=== PATIENT | male | born 1940 | race Caucasian/White ===

== ENCOUNTER 2016-11-29 01:09 | Inpatient (IN) | payer OTHER ==
[~2016-11-29] VITALS: Ht 182.9 cm; Wt 90.7 kg
--- NOTE | 2016-11-29 01:13 | NUR ---
PER LONG HX OF RT KNEE PROBLEMS BUT USES CANE AND HIKES ETC, ON 11/19 PT FELL AND HAS HAD TO USE A WALKER SINCE, PT TONIGHT PAIN WAS UNBEARABLE. UNABLE TO TOLERATE.
--- NOTE | 2016-11-29 01:16 | ED MVC/FALL/TRAUMA COMPLAINT ---
History of Present Illness General Chief Complaint: Lower Extremity Injury Stated Complaint: FALL R HIP PAIN Source: patient, family, EMS Exam Limitations: no limitations Vital Signs & Intake/Output Vital Signs & Intake/Output Vital Signs Date Time Temp Pulse Resp B/P Pulse O2 O2 Flow FiO2 Ox Delivery Rate 11/29 0826 73 20 133/57 97 Room Air 11/29 0544 98.3 69 22 142/71 95 Room Air 11/29 0119 97.3 77 22 159/74 95 Room Air Allergies Coded Allergies: fenofibrate (From TRICOR) (UNKNOWN 11/29/16) levothyroxine sodium (From SYNTHROID) (HIVES 11/29/16) Reconcile Medications Amlodipine Besylate 5 MG TABLET 1 TAB PO DAILY HTN (Reported) Lisinopril 2.5 MG TABLET 1 TAB PO DAILY HTN (Reported) Thyroid,Pork ([place] Thyroid) 60 MG TABLET 1 TAB PO DAILY THYROID (Reported) Triage Note: PER LONG HX OF RT KNEE PROBLEMS BUT USES CANE AND HIKES ETC, ON 11/19 PT FELL AND HAS HAD TO USE A WALKER SINCE, PT TONIGHT PAIN WAS UNBEARABLE. UNABLE TO TOLERATE. Triage Nurses Notes Reviewed? yes Onset: Abrupt Duration: week(s):, waxing and waning Timing: recent history Severity: mild, moderate Injuries/Fall Location: lower extremity Method of Injury: fall Loss of Consciousness: no loss of consciousness Modifying Factors: Worsens With: movement. Associated Symptoms: RIGHT HIP PAIN SINCE november 19. hE NOTES ALSO CHRONIC RIGHT KNEE PAIN FOR MANY DECADES. HPI: 76-year-old gentleman in prior good health, history of hypertension, hypothyroidism, chronic right knee pain, presents with right hip pain after a fall on November 19. He notes that he fell, landed on his right hip. Since then he has had increasing pain where he has needed to walk with a walker. He notes that tonight the pain became, "unbearable. I had to do something." He notes no other injury and is otherwise well. He did not hit his head. He had no chest pain palpitations shortness of breath. (MICHELLE HERNÁNDEZ,BALDEMAR Abreu) Past History Travel History Traveled to [place] past 21 day No Medical History Any Pertinent Medical History? see below for history Cardiovascular: hypertension Endocrine: hypothyroidism Surgical History Surgical History: none Family History Hx Contributory? No (MICHELLE HERNÁNDEZ,BALDEMAR Abreu) Review of Systems Review of Systems Constitutional: Reports: no symptoms. Eyes: Reports: no symptoms. Ears, Nose, Throat, Mouth: Reports: no symptoms. Respiratory: Reports: no symptoms. Cardiovascular: Reports: no symptoms. Gastrointestinal/Abdominal: Reports: no symptoms. Genitourinary: Reports: no symptoms. Musculoskeletal: Reports: no symptoms. Skin: Reports: no symptoms. Neurological/Psychological: Reports: no symptoms. All Other Systems: Reviewed and Negative (MICHELLE HERNÁNDEZ,BALDEMAR Abreu) Physical Exam Physical Exam General Appearance: well developed/nourished, mild distress Head: atraumatic, normal appearance Eyes: Bilateral: normal appearance. Ears, Nose, Throat, Mouth: hearing grossly normal Neck: normal inspection, supple, full range of motion Respiratory: normal breath sounds, chest non-tender, no respiratory distress, quiet respiration, lungs clear Cardiovascular: regular rate/rhythm Gastrointestinal: normal bowel sounds, soft, non-tender Back: normal inspection Extremities: right leg appears shortened and externally rotated. Diffuse pain around right knee to palpation with range of motion movement. Pain elicited the right hip with palpation and passive range of motion. 2+ distal pulses symmetrical bilaterally. Neurologic/Psych: no motor/sensory deficits, awake, alert, oriented x 3 Skin: intact, normal color, warm/dry Core Measures ACS in differential dx? No Severe Sepsis Present: No Septic Shock Present: No (MICHELLE HERNÁNDEZ,BALDEMAR Abreu) Progress Differential Diagnosis: ext injury Plan of Care: Orders Procedure Date/time Status Nothing by Mouth 11/29 L Active Nothing by Mouth 11/29 B Complete Pathway - chart 11/29 0955 Active House Staff 11/29 0955 Active Patient Data 11/29 0955 Active Code Status 11/29 0955 Active Admit to inpatient 11/29 0913 Active Patient Data 11/29 0752 Active Intake & Output 11/29 0728 Active Saline Lock 11/29 0402 Active ED Holding Orders 11/29 0402 Active Vital Signs 11/29 0402 Active Code Status 11/29 0402 Complete Admit to inpatient 11/29 0401 Active Admit to inpatient 11/29 0305 Active Jones, Insertion/Removal/Asses 11/29 0254 Active CULTURE,URINE 11/29 0254 Active URINALYSIS 11/29 0254 Complete TROPONIN LEVEL 11/29 0254 Complete COMPREHENSIVE METABOLIC PANEL 02/25 0254 Complete CBC WITHOUT DIFFERENTIAL 11/29 253 Complete EKG 11/29 253 Active TYPE & SCREEN (NOT X-MATCH) 11/29 253 Complete VTE Mechanical Prophylaxis 11/29 UNK Active Laboratory Tests 11/29/1645: Urine Color BLDY H, Urine Clarity TURBD H, Urine pH 8.0, Ur Specific [place] 1.025, Urine Protein >=300 H, Urine Ketones NEG, Urine Nitrite POS H, Urine Bilirubin NEG@ICTO, Urine Urobilinogen 0.2, Ur Leukocyte Esterase TRACE H, Ur Microscopic SEDIMENT EXAMINED, Urine RBC PACKD H, Urine Hemoglobin LARGE H, Urine Glucose 100 H 11/29/16 0358: Anion Gap 9, Estimated GFR > 60, BUN/Creatinine Ratio 27.0 H, Glucose 113 H, Calcium 9.3, Total Bilirubin 0.7, AST 31, ALT 30, Alkaline Phosphatase 86, Troponin I < 0.01, Total Protein 6.6, Albumin 3.7, Globulin 2.9, Albumin/ Globulin Ratio 1.3, CBC w Diff NO MAN DIFF REQ, RBC 3.47 L, MCV 97.0 H, MCH 32.8 H, RDW 15.2 H, MPV 7.7, Gran % 82.7 H, Lymphocytes % 10.1 L, Monocytes % 6.7, Eosinophils % 0.1, Basophils % 0.4, Absolute Granulocytes 6.0, Absolute Lymphocytes 0.7 L, Absolute Monocytes 0.5, Absolute Eosinophils 0, Absolute Basophils 0, PUBS MCHC 33.9 Microbiology 11/29 544 URINE ROUT: Urine Culture - RECD Diagnostic Imaging: Viewed by Me: Radiology Read. Discussed w/RAD: Radiology Read. Radiology Impression: ap pelvis/right hip... right femoral neck fx... ( discrepancy in dictation... pt has a RIGHT femoral neck fracture) Hand-Off Endorsed To: INDERJIT HERNÁNDEZ,DEMAR Sommers Endorsed Time: 0700 Pending: other (PA evaluation) Comments: PATIENT: JESSICA AMAYA PRESENT AGE: 76 PATIENT ACCOUNT NO: [id number] : 41 LOCATION: [facility] ORDERING PHYSICIAN: BALDEMAR MARTINEZ MD SERVICE DATE: 11/29/16 EXAM TYPE: RAD - XRY-HIP 4 VIEWS UNI, RIGHT EXAMINATION: PELVIS, RIGHT HIP. CLINICAL INFORMATION: Fall. Pain. COMPARISON: None. TECHNIQUE: AP view of pelvis. Cone-down AP oblique view of right hip. FINDINGS: Fracture through the right femoral neck. Distal fracture fragment displaced superiorly with angulation of the fracture. Femoral head remains seated in the acetabulum. Left proximal femur intact. No fracture pelvis. Degenerative disc disease of lower lumbar spine. IMPRESSION: Fracture of left femoral neck. DICTATED BY: CHARLES CHAUDHARY MD DATE/TIME DICTATED:11/29/16339 ENGLISH AS A SECOND LANGUAGE INSTRUCTOR:NETTIE DATE/TIME TRANSCRIBED:11/29/16339 CONFIDENTIAL, DO NOT COPY WITHOUT APPROPRIATE AUTHORIZATION. <Electronically signed in Other Vendor System> SIGNED BY: CHARLES CHAUDHARY MD 11/29/16344 (MICHELLE HERNÁNDEZ,BALDEMAR Abreu) Comments: Patient has been seen and evaluated by the surgical PA. They feel that given the patient's increasing weakness prior to his fall and his past medical history that he would be better served on the medical service with them as consultants and once he is medically cleared then proceed for surgery. Discussed with Jeanine Nj MD. She feels that the patient is stable for the surgical service with medical consultation. This was relayed to the surgical PA who is going to talk to Dr. Mariscal and Dr. Mariscal and Dr. Rdz will communicate and then one of them will call me back to determine who service he will be on. Dr. Graham called to get an update on the patient. The case was discussed with him. He feels that the patient should be admitted to the medical service with orthopedic consultation. He will contact Dr. Art. (INDERJIT HERNÁNDEZ,DEMAR Sommers) Departure Departure Disposition: STILL A PATIENT Condition: Stable Clinical Impression Primary Impression: Fracture of femoral neck, right Secondary Impressions: Dehydration, Urinary outflow obstruction Referrals: MUSHTAQ HERNÁNDEZ,BAIRON (PCP/Family) Departure Forms: Customer Survey General Discharge Information Comments 11/29/16, 5:40AM.... Difficulty with jones placement.... unsuccessful with jones from kit, coude x 2, size 22, 24. Jones placed with 28, balloon documented in bladder by bedside u/s.... bloody drainage... slow to drain... Discussed with dr. armenta (5:40)... will have surgical PA evaluate patient. 2.25.17, 5:47am.... discussed with surgical PA... team will evaluate the patient. Admission Note Documentation of Exam: Documentation of any treatments & extenuating circumstances including Concerns Regarding Discharge (functional status, medication knowledge or non-compliance, living conditions, etc.) that warrant an admission rather than observation: pt with right femoral neck fracture, will need surgical repair. PA to evaluate for dispo. pt signed out to dr. zaman. 11.29.16, 7am. (MICHELLE HERNÁNDEZ,BALDEMAR Abreu) Admission Note Spoke With: CONCHA HERNÁNDEZ,JEANINE Roth Documentation of Exam: Documentation of any treatments & extenuating circumstances including Concerns Regarding Discharge (functional status, medication knowledge or non-compliance, living conditions, etc.) that warrant an admission rather than observation: [ Patient to be admitted to the medical service with orthopedic consultation. Patient has been having increasing weakness to the point that he fell 10 days ago and fractured his right hip. Patient will need medical evaluation and medical clearance prior to surgery.] (INDERJIT HERNÁNDEZ,DEMAR Sommers)
--- NOTE | 2016-11-29 01:20 | NUR ---
ALERT DISHEVELED, GLASSES IN PLACE, LENSES DIRTY, CLOTHES SOILED AND GREYED, PANTS AND UNDERWEAR REMOVED, PANTS STAINED WITH URINE. LLE KNEE TO ANKLE APPEARS CELLULITIC, AND SWOLLEN, RT KNEE WITH ELASTIC BRACE ON OLD, TATTERED, RLE SWOLLEN AND REDDENED. BILAT PEDAL EDEMA 2+ PER ? NORMAL UNABLE TO USE URINAL UNABLE TO TURN AT THIS TIME AWAITS EVAL.
--- NOTE | 2016-11-29 02:28 | NUR ---
PT ATTEMPTS TO VOID MULTPILE TIMES UNABLE TO PT REQUESTS TO BE VERTICAL, CONT TO AWAIT XR. PLACED IN REVERSE TRENDELENBERG AND SIDE BUT UNABLE TO VOID, REPORTS NO RELIEF FROM TORADOL
--- NOTE | 2016-11-29 02:39 | NUR ---
PT TO RADIOLOGY VIA STRETCHER
--- NOTE | 2016-11-29 03:14 | NUR ---
PT BACK FROM RAD.
--- NOTE | 2016-11-29 03:21 | NUR ---
awaiting md to discuss results so labs, jones iv ekg can be performed.
--- NOTE | 2016-11-29 03:45 | RADIOLOGY REPORT ---
EXAMINATION: PELVIS, RIGHT HIP. CLINICAL INFORMATION: Fall. Pain. COMPARISON: None. TECHNIQUE: AP view of pelvis. Cone-down AP oblique view of right hip. FINDINGS: Fracture through the right femoral neck. Distal fracture fragment displaced superiorly with angulation of the fracture. Femoral head remains seated in the acetabulum. Left proximal femur intact. No fracture pelvis. Degenerative disc disease of lower lumbar spine. IMPRESSION: Fracture of left femoral neck.
--- NOTE | 2016-11-29 03:46 | RADIOLOGY REPORT ---
EXAMINATION: XR KNEE, RIGHT CLINICAL INFORMATION: Pain. Fall. COMPARISON: None TECHNIQUE: Three views of the right knee. FINDINGS: No fracture. No dislocation. No acute abnormality. There is marked degenerative joint disease with [id number] contact between femur and tibia. Remodeling of the articular surface of the tibia at the medial femoral tibial joint. Marginal spur of both bones at the medial compartment. Small spurs of the patella at the patellofemoral joint. There is a small joint effusion. IMPRESSION: 1. No acute abnormality. 2. Marked degenerative joint disease. 3. Small joint effusion.
--- NOTE | 2016-11-29 03:46 | NUR ---
PT REQUESTING MALE FOR CATH INSERTION, DR MARTINEZ AGREEABLE. PT CONT TO ASK QUESTIONA AND THEN APOLOGIZES FOR ASKING THEM, RLE KNEE BRACE REMOVED, SWELLING BELOW BRACE. PT CLOTHING {SHIRT AND ADALBERTO } REMOVED UNDER SOME MINIMAL DURESS. PT AWARE OF NEED TO STAY.
--- NOTE | 2016-11-29 03:47 | RADIOLOGY REPORT ---
EXAMINATION: XR PORTABLE CHEST CLINICAL INFORMATION: Preop. COMPARISON: None TECHNIQUE: Portable portable AP view of the chest was obtained. 2:59 AM FINDINGS: Lungs are clear. No pulmonary vascular congestion. No infiltrate or pleural effusion. The heart size is normal. The cardiac and mediastinal contours are normal. There are calcifications of the thoracic aorta. There are multilevel degenerative changes of dorsal spine. IMPRESSION: Unremarkable examination.
[2016-11-29] MEDS ORDERED: ARMOUR THYROID60 M1 PO (03:49)
[2016-11-29] MEDS ORDERED: AMLODIPINE BESYL5 M1 PO (03:50)
[2016-11-29] MEDS ORDERED: LISINOPRIL2.5 M1 PO (03:50)
[2016-11-29 04:10] LABS: ABSOLUTE BASOPHIL COUNT 0 /CUMM (0.0-0.2); ABSOLUTE EOSINOPHIL COUNT 0 /CUMM (0.0-0.7); ABSOLUTE LYMPH COUNT 0.7 /CUMM (1.2-3.4); ABSOLUTE MONOCYTE COUNT 0.5 /CUMM (0.10-0.60); BASOPHIL % 0.4 % (0.0-2.0); EOSINOPHIL % 0.1 % (0-5); GRANULOCYTE % 82.7 % (42.2-75.2); HEMATOCRIT 33.6 % (42-52); MEAN CORPUSCULAR HGB 32.8 PG (27.0-31.0); MEAN CORPUSCULAR HGB CONC 33.9 G/DL (33.0-37.0); MEAN PLATELET VOLUME 7.7 FL (7.4-10.4); PLATELET COUNT 188 /CUMM (130-400); RBC DISTRIBUTION WIDTH 15.2 % (11.5-14.5); RED BLOOD CELL CT 3.47 /CUMM (4.70-6.10); WHITE BLOOD CELL COUNT 7.2 /CUMM (4.8-10.8)
--- NOTE | 2016-11-29 04:15 | NUR ---
BLOODWORK DRAWN AND SENT OFF TO THE LAB; EKG DONE AND SHOWN TO DR. MARTINEZ.
--- NOTE | 2016-11-29 05:35 | NUR ---
PER 2-3 DAYS AGO URINE WAS DARK IN COLOR BUT DENIES BLOOD, ALSO REPORTED GRITTY TEXTURE BUT WAS OK LAST PM PRIOR TO ARRIVAL, SAVAGE PLACED BY MD WITH GREAT DIFFICULTY. A #18 REGULAR, #14,#16, #20 COUDE ATTEMPTED QWITHOUT SUCCESS, BEDSIDE US PERFORMED, #28 COUDE SAVAGE PLACED, IRRIGATED BY MD. BLOODY RETURNS. WITH SOME CLOTS, IRRIGATED WITH 100 CCS SALINE LIGHT RED RETURNS, WILL MONITOR OUTPT. PT REPORTS RELIEF OF PAIN WITH 2ND DOSE OF 2 MG MORPHINE.
--- NOTE | 2016-11-29 05:48 | NUR ---
SURGICAL PA CALLED BACK AT [phone]
--- NOTE | 2016-11-29 05:57 | NUR ---
AWAITS BED, EVAL BY HOUSESTAFF, ETC. WENT HOME.
--- NOTE | 2016-11-29 05:59 | NUR ---
PER DR. MARTINEZ, SURG PA IN ICU, WILL AWAIT PA FOR EVAL.
--- NOTE | 2016-11-29 06:00 | NUR ---
pt offered position change but refused.
--- NOTE | 2016-11-29 07:14 | NUR ---
CONT TO AWAIT SURGICAL EVAL.
--- NOTE | 2016-11-29 07:21 | NUR ---
DISCUSSED WITH MD JANSEN UNABLE TO BOOK PT, UNTIL SEEN BY SURGICAL PA TO DECIDE WHETHER PT WILL GO MED OR SURG. PT UPDATED.
--- NOTE | 2016-11-29 07:27 | NUR ---
SURGICAL PA RONAN IN WITH PT.
--- NOTE | 2016-11-29 07:54 | History & Physical ---
General Information and HPI Allergies/Medications Allergies: Coded Allergies: fenofibrate (From TRICOR) (UNKNOWN 11/29/16) levothyroxine sodium (From SYNTHROID) (HIVES 11/29/16) Home Med list Amlodipine Besylate 5 MG TABLET 1 TAB PO DAILY HTN (Reported) Lisinopril 2.5 MG TABLET 1 TAB PO DAILY HTN (Reported) Thyroid,Pork ([place] Thyroid) 60 MG TABLET 1 TAB PO DAILY THYROID (Reported) Past History Travel History Traveled to [place] past 21 day No Medical History Neurological: NONE EENT: NONE Cardiovascular: hypertension Respiratory: NONE Gastrointestinal: NONE Hepatic: NONE Renal: NONE Musculoskeletal: NONE Psychiatric: NONE Endocrine: hypothyroidism Surgical History Surgical History: none Core Measures/Miscellaneous Severe Sepsis Severe Sepsis Present: No Septic Shock Septic Shock Present: No
--- NOTE | 2016-11-29 07:54 | NUR ---
PT DEFERRED BY SURGERY. DR JANSEN CALLED MOD, AWAITING RETURN CALL FROM HOSPITALIST.
--- NOTE | 2016-11-29 08:24 | NUR ---
CONT TO AWAIT MOD, WHO IS DISCUSSING WITH SURGERY, WHO WILL ACCEPT PT. REPORTIONED WITH PILLOWS TO L HIP, BETW KNEES. AND BACK
--- NOTE | 2016-11-29 08:35 | NUR ---
MED WITH 2 MG MORPHINE IV. CONT TO AWAIT ACCEPTING NURSING SUPERVISIOR PAGED.
--- NOTE | 2016-11-29 08:50 | NUR ---
SITUATION DISCUSSED WITH SUPERVISIOR, WILL DISCUSS WITH ATTENDING AND ADVISE THIS CODING TEAM LEAD WHO WILL ACCEPT PT.
--- NOTE | 2016-11-29 08:52 | NUR ---
JAYANT FROM CALLED FOR REPORT, AWARE OF SITUATION WITH ATTENDING ASSIGNMENT, WILL CALL WHEN RESOLVED.
--- NOTE | 2016-11-29 08:57 | NUR ---
PER PT HAS A SORE ON HIS TAIL BONE UNABLE TO SEE, EVEN WITH ASSISTANCE UNABLE TO TURN PT FAR ENOUGH TO SIDE TO VISUALIZE D/T PAIN. ALSO A CONCERN IS PTS WELL BEING D/T HIS SOILED CLOTHING AND DISHEVELED APPEARANCE UPON ARRIVAL, APPEARS IN SL DISARRAY WELL, THIS COULD BE A RESULT OF PTS RECENT FALL AND INCREASED WEAKNESS OVER LAST SEVERAL DAYS. PT WAS APPROACHED ABOUT HOME SERVICES BUT DOES NOT CURRENTLY HAVE ANY SERVICES.
--- NOTE | 2016-11-29 09:07 | Cons- Medical ---
General Information and HPI Allergies/Medications Allergies: Coded Allergies: fenofibrate (From TRICOR) (UNKNOWN 11/29/16) levothyroxine sodium (From SYNTHROID) (HIVES 11/29/16) Home Med List: Amlodipine Besylate 5 MG TABLET 1 TAB PO DAILY HTN (Reported) Lisinopril 2.5 MG TABLET 1 TAB PO DAILY HTN (Reported) Thyroid,Pork ([place] Thyroid) 60 MG TABLET 1 TAB PO DAILY THYROID (Reported) Past History Travel History Traveled to [place] past 21 day No Medical History Neurological: NONE EENT: NONE Cardiovascular: hypertension Respiratory: NONE Gastrointestinal: NONE Hepatic: NONE Renal: NONE Musculoskeletal: NONE Psychiatric: NONE Endocrine: hypothyroidism Surgical History Surgical History: 1 Assessment/Plan Consult Acknowledgment - Thank you for your consult request.
--- NOTE | 2016-11-29 09:22 | NUR ---
PER DR. ESCOBAR PT WILL BE ADMITTED TO DR MCCARTHY
--- NOTE | 2016-11-29 09:40 | NUR ---
AL AT BEDSIDE. REPORT GIVEN TO JAYANT. TRANSPORT CONTACTED.
--- NOTE | 2016-11-29 09:46 | NUR ---
pt admitted to room 227
--- NOTE | 2016-11-29 09:54 | NUR ---
DISTRIBUTION VOICE MAIL LEFT X2.
--- NOTE | 2016-11-29 10:17 | History & Physical ---
GUANACO FROST 11/29/16 1017: General Information and HPI MD Statement: I have seen and personally examined JESSICA LOCKWOOD and documented this H&P. The patient is a 76 year old M who presented with a patient stated chief complaint of [right hip pain]. Source of Information: patient, old records Exam Limitations: no limitations History of Present Illness: Mr Lockwood is a 76-year-old gentleman with a PMH of HTN, hypothyroidism who presents with complaints of right-sided hip pain. He reports a fall back in March 2016 when he fell on his back and has since had difficulty with ambulation, specifically falling backwards whenever he stands upright. Since that time he has had to revert from a cane to a rolling walker to help with ambulation. Patient states that on November 19 he suffered a fall while walking with his cane landing on the right side and since then reports pain in his hip that he describes as a stabbing sensation localized around the right hip joint and occasional radiation down the right leg. He denies any bruising, swelling, numbness or weakness in the leg however, over the past 2 days the pain has become too severe for him to be able to walk. Last night he was on the ground for approximately 1-1/2 hours his could help him up to the chair and was brought into the ED afterwards for assessment. He denies any loss of consciousness, blurry vision, shortness breath, chest pain , palpitations, nausea, abdominal pain, changes in urinary habits. ROS: He does report occasional constipation managed with prune juice and watering of his eyes. Allergies/Medications Allergies: Coded Allergies: fenofibrate (From TRICOR) (UNKNOWN 11/29/16) levothyroxine sodium (From SYNTHROID) (HIVES 11/29/16) Home Med list Amlodipine Besylate 5 MG TABLET 1 TAB PO DAILY HTN (Reported) Lisinopril 2.5 MG TABLET 1 TAB PO DAILY HTN (Reported) Thyroid,Pork ([place] Thyroid) 60 MG TABLET 1 TAB PO DAILY THYROID (Reported) Past History Travel History Traveled to [place] past 21 day No Medical History Neurological: NONE EENT: NONE Cardiovascular: hypertension Respiratory: NONE Gastrointestinal: NONE Hepatic: NONE Renal: NONE Musculoskeletal: NONE Psychiatric: NONE Endocrine: hypothyroidism Surgical History Surgical History: Tonsillectomy Past Family/Social History Functional Ability ADLs Independent: dressing, eating, toileting, bathing. Ambulation: cane, walker Review of Systems Review of Systems Constitutional: Reports: see HPI. EENTM: Reports: eye tearing. Cardiovascular: Reports: see HPI. Respiratory: Reports: no symptoms. GI: Reports: see HPI. Genitourinary: Reports: see HPI. Musculoskeletal: Reports: see HPI. Skin: Reports: no symptoms. Neurological/Psychological: Reports: no symptoms. Exam & Diagnostic Data Last 24 Hrs of Vital Signs/I&O Vital Signs Date Time Temp Pulse Resp B/P Pulse O2 O2 Flow FiO2 Ox Delivery Rate 11/29 0826 73 20 133/57 97 Room Air 11/29 0544 98.3 69 22 142/71 95 Room Air 11/29 0119 97.3 77 22 159/74 95 Room Air Intake & Output 11/29 1600 11/29 0800 11/29 0000 Intake Total Output Total 50 Balance -50 Output, Urine 50 Patient 200 lb Weight Physical Exam General Appearance Alert, Cooperative, No Acute Distress Skin No Significant Lesion, NO bruising apparent on the right hip HEENT Mucous membranes slightly dry Cardiovascular Regular Rate, Normal S1, Normal S2 Lungs Normal Air Movement, Diminshed breath sounds in the basilar regions Abdomen Normal Bowel Sounds, Soft, No Tenderness Neurological Normal Speech, Strength 5/5 BL upper ext Extremities Normal Pulses, 3+ pitting edema BL LE. Scant petechiae rash on the lower extremities Vascular Pulses Symmetrical Last 24 Hrs of Labs/Julio: Laboratory Tests 11/29/16 0545: Urine Color BLDY H, Urine Clarity TURBD H, Urine pH 8.0, Ur Specific [place] 1.025, Urine Protein >=300 H, Urine Ketones NEG, Urine Nitrite POS H, Urine Bilirubin NEG@ICTO, Urine Urobilinogen 0.2, Ur Leukocyte Esterase TRACE H, Ur Microscopic SEDIMENT EXAMINED, Urine RBC PACKD H, Urine Hemoglobin LARGE H, Urine Glucose 100 H 11/29/16 0358: Anion Gap 9, Estimated GFR > 60, BUN/Creatinine Ratio 27.0 H, Glucose 113 H, Calcium 9.3, Total Bilirubin 0.7, AST 31, ALT 30, Alkaline Phosphatase 86, Troponin I < 0.01, Total Protein 6.6, Albumin 3.7, Globulin 2.9, Albumin/ Globulin Ratio 1.3, Vitamin B12 Pending, 25-OH Vitamin D Total Pending, Folate Pending, TSH Pending, Free T4 Pending, CBC w Diff NO MAN DIFF REQ, RBC 3.47 L, MCV 97.0 H, MCH 32.8 H, RDW 15.2 H, MPV 7.7, Gran % 82.7 H, Lymphocytes % 10.1 L, Monocytes % 6.7, Eosinophils % 0.1, Basophils % 0.4, Absolute Granulocytes 6.0, Absolute Lymphocytes 0.7 L, Absolute Monocytes 0.5, Absolute Eosinophils 0, Absolute Basophils 0, PUBS MCHC 33.9 Microbiology 11/29 0545 URINE ROUT: Urine Culture - RECD Diagnostic Data EKG Results Sinus rhythm, HR 75. Borderline T-wave abnormalities. QTC 438 CXR Results Unremarkable examination Other Results Right hip x-ray: Fracture through the right femoral neck. Distal fracture fragment displaced superiorly with angulation of the fracture. Femoral head remains seated in the acetabulum. Left proximal femur intact. No pelvis fracture Assessment/Plan Assessment: 76-year-old gentleman with a PMH of HTN, hypothyroidism who presents with complaints of right-sided hip pain. Patient suffered a fall 10 days ago while ambulating with a cane and has since reported progressive/persistent pain mainly localized in the right hip and occasional radiation down towards the leg. VS on admission: BP 159/74, HR 77, RR 22, SPO2 95% on RA, T 97.3 Pertinent labs: CBC 7.2, H&H 11.4/33.6, platelets 188, BUN/CR 27/1.0, glucose 113 UA: Cloudy, turbid, greater than 300 protein, positive nitrites, trace leukocyte esterase, packed RBCs, large hemoglobin Right hip x-ray: Fracture of the right femoral neck with distal fragment displaced CXR: Unremarkable Problem list: 1. Right femoral neck fracture 2. Hematuria 3. Gait instability 4. HEENT eyes 5. Occasional constipation 6. Hypertension 7. Hypothyroidism Plan: 1. Right femoral neck fracture * Risk stratification under our RCRI guidelines show low risk of intraoperative cardiac event 0.4-1%. At this time no history or radiologic findings/physical exam concerning for heart disease. However, 2+ pitting edema * Patient nothing by mouth at this time. Maintenance fluids of normal saline at 5 mL an hour. 2. Hematuria * Pt s did report a history of dark urine prior to admission. However in the setting of a traumatic Grimm catheter placement the current hematuria could be expected. However, will obtain renal ultrasound and if any evidence of urinary tract injury, will get stat urology consult prior to starting anticoagulation * Follow-up creatinine kinase 3. Gait instability * Patient complains of baseline gait that sounds like possible lumbar spinal stenosis * Will defer any imaging at this time, follow-up post hip surgery with physical therapy recommendations * Follow-up B12, vitamin D levels and supplement as needed 4. Itchy eyes * No evidence of conjunctivitis or infection at this time * Artificial tears for symptom control 5. Constipation * Bowel regimen with senna and Colace 6. Hypertension * Holding current dose of amlodipine and GEOVANY inhibitor. We'll restart as blood pressure tolerates post procedure 7. Hypothyroidism * Continue with armour thyroid 60mg daily 8. DVT prophylaxis * At this time will defer ALPs and pharmacoligic anticoagulation in the setting of hip fracture * Post procedure recommendations per surgery team 9. Diet * NPO pending surgery. Restart diet postprocedure 10. CODE STATUS * Full code As Ranked By This Provider Problem List: 1. Fracture of femoral neck, right 2. Gait instability 3. Vitamin D deficiency 4. Hypertension 5. Hypothyroidism Core Measures/Miscellaneous Acute Coronary Syndrome ACS Diagnosis: No Cerebrovascular Accident CVA/TIA Diagnosis: No Congestive Heart Failure CHF Diagnosis: No Venous Thromboembolism VTE Risk Factors: Age > 40 VTE Prophylaxis Ordered Inpt: Mech/Pharm Contraindicate No Mech VTE prophylaxis d/t: Surgical procedure LE No VTE Pharm Prophylaxis d/t: Medical contraindication VTE Diagnosis: No VTE Type: NONE VTE Confirmed by (Test): NONE Severe Sepsis Severe Sepsis Present: No Septic Shock Septic Shock Present: No Miscellaneous Documentation Attending Case Discussed With: JANNET KERN MD Primary Care Physician: BAIRON LANDIN MD Patient sees these Specialists None Level of Patient Care: General Medicine Resident Review Statement Resident Statement: examined this patient, discussed with internal medicine physician, agreed with internal medicine physician, reviewed EMR data (avail), discussed with nursing, reviewed images JANNET KERN MD 11/30/16 0743: Attending MD Review Statement Attending Statement Attending Statement: examined this patient, discuss w/resident/PA/TONG CARRIER, agreed w/resident/PA/TONG CARRIER, reviewed EMR data (avail), discussed with nursing, discussed with case mgmt, reviewed images Attending Assessment/Plan: See medical brief addendum note dated 11/29/2016.
--- NOTE | 2016-11-29 12:02 | Cons- Orthopedic ---
General Information and HPI Consulting Request Date of Consult: 11/29/16 Requested By: JANNET KERN MD Reason for Consult: Right hip fracture Source of Information: patient Exam Limitations: no limitations History of Present Illness: Patient is a 76yo M with PMHx of hypothyroidism and hypotension whom presents to [facility] with Right hip pain. Per patient he has become increasingly unsteady on his feet over the past 2 years and has been having increased frequency of balance issues. He also states that he has become increasingly weak over the past 2 months to the point that its difficult to lift his head off of his pillow at times. He sustained a fall on 11/19/16 for which he has been ambulating on it but yesterday had severe pain and was unable to bear weight on it. His helped him up after 1.5-2 hours of being on the ground and he was brought to [facility] ED. Currently pain is 5/10 with IV morphine. Denies numbness/tingling in RLE. States he has had some increased frequency and irritation with urination. Does not recall having fevers. Denies CP/SOB. Allergies/Medications Allergies: Coded Allergies: fenofibrate (From TRICOR) (UNKNOWN 11/29/16) levothyroxine sodium (From SYNTHROID) (HIVES 11/29/16) Home Med List: Amlodipine Besylate 5 MG TABLET 1 TAB PO DAILY HTN (Reported) Lisinopril 2.5 MG TABLET 1 TAB PO DAILY HTN (Reported) Thyroid,Pork ([place] Thyroid) 60 MG TABLET 1 TAB PO DAILY THYROID (Reported) Past History Medical History Blood Transfusion Hx: No Neurological: NONE EENT: NONE Cardiovascular: hypertension Respiratory: NONE Gastrointestinal: NONE Hepatic: NONE Renal: NONE Musculoskeletal: NONE Psychiatric: NONE Endocrine: hypothyroidism Blood Disorders: NONE Cancer(s): NONE 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 Ambulation: cane, walker Review of Systems Review of Systems Constitutional: Reports: see HPI. EENTM: Reports: no symptoms. Cardiovascular: Denies: chest pain, palpitations. Respiratory: Denies: cough, short of breath, sputum production. GI: Denies: abdominal pain, melena, bloody stool. Genitourinary: Reports: see HPI. Musculoskeletal: Reports: see HPI. Skin: Denies: dryness, erythema, jaundice. Neurological/Psychological: Reports: see HPI. All Other Systems: Reviewed and Negative Exam & Diagnostic Data Vital Signs and I&O Vital Signs Date Time Temp Pulse Resp B/P Pulse O2 O2 Flow FiO2 Ox Delivery Rate 11/29 825 73 20 133/57 97 Room Air 11/29 0544 98.3 69 22 142/71 95 Room Air 11/29 0119 97.3 77 22 159/74 95 Room Air Intake & Output 11/29 1600 11/29 0800 11/29 0000 11/28 1600 11/28 0800 11/28 0000 Intake Total Output Total 50 Balance -50 Output, Urine 50 Patient 200 lb 200 lb Weight Physical Exam: General: NAD, comfortable, A&Ox3 Skin: Pale in color Chest: CTAB, no wheezes, no rales. RRR. Abdomen: soft, nontender, nondistended. Ext: BLE edema 2-3+. RLE with loss of height and external rotation. BLE compartments soft. No calve swelling/TTP, neurovascularly intact bilateral lower extremities Last 24 Hours of Labs: Laboratory Tests 11/29 11/29 0545 0358 Chemistry Sodium (137 - 145 mmol/L) 138 Potassium (3.5 - 5.1 mmol/L) 4.3 Chloride (98 - 107 mmol/L) 102 Carbon Dioxide (22 - 30 mmol/L) 27 Anion Gap (5 - 16) 9 BUN (9 - 20 mg/dL) 27 H Creatinine (0.7 - 1.2 mg/dL) 1.0 Estimated GFR (>60 ml/min) > 60 BUN/Creatinine Ratio (7 - 25 %) 27.0 H Glucose (65 - 99 mg/dL) 113 H Calcium (8.4 - 10.2 mg/dL) 9.3 Total Bilirubin (0.2 - 1.3 mg/dL) 0.7 AST (17 - 59 U/L) 31 ALT (21 - 72 U/L) 30 Alkaline Phosphatase (< 127 U/L) 86 Troponin I (<0.11 ng/ml) < 0.01 Total Protein (6.3 - 8.2 g/dL) 6.6 Albumin (3.5 - 5.0 g/dL) 3.7 Globulin (1.9 - 4.2 gm/dL) 2.9 Albumin/Globulin Ratio (1.1 - 2.2 %) 1.3 Vitamin B12 (239 - 931 pg/mL) Pending 25-OH Vitamin D Total (30 - 100 ng/ml) 21.1 L Folate (2.76 - 20.0 ng/mL) Pending TSH (0.270 - 4.200 uIU/mL) 1.990 Free T4 (0.78 - 2.44 ng/dL) 0.64 L Hematology CBC w Diff NO MAN DIFF REQ WBC (4.8 - 10.8 /CUMM) 7.2 RBC (4.70 - 6.10 /CUMM) 3.47 L Hgb (14.0 - 18.0 G/DL) 11.4 L Hct (42 - 52 %) 33.6 L MCV (80.0 - 94.0 FL) 97.0 H MCH (27.0 - 31.0 PG) 32.8 H RDW (11.5 - 14.5 %) 15.2 H Plt Count (130 - 400 /CUMM) 188 MPV (7.4 - 10.4 FL) 7.7 Gran % (42.2 - 75.2 %) 82.7 H Lymphocytes % (20.5 - 51.1 %) 10.1 L Monocytes % (1.7 - 9.3 %) 6.7 Eosinophils % (0 - 5 %) 0.1 Basophils % (0.0 - 2.0 %) 0.4 Absolute Granulocytes (1.4 - 6.5 /CUMM) 6.0 Absolute Lymphocytes (1.2 - 3.4 /CUMM) 0.7 L Absolute Monocytes (0.10 - 0.60 /CUMM) 0.5 Absolute Eosinophils (0.0 - 0.7 /CUMM) 0 Absolute Basophils (0.0 - 0.2 /CUMM) 0 PUBS MCHC (33.0 - 37.0 G/DL) 33.9 Urines Urine Color (YEL,AMB,STR) BLDY H Urine Clarity (CLEAR) TURBD H Urine pH (5.0 - 8.0) 8.0 Ur Specific [place] (1.001 - 1.035) 1.025 Urine Protein (NEG,<30 MG/DL) >=300 H Urine Ketones (NEG) NEG Urine Nitrite (NEG) POS H Urine Bilirubin (NEG) NEG@ICTO Urine Urobilinogen (0.1 - 1.0 EU/dl) 0.2 Ur Leukocyte Esterase (NEG) TRACE H Ur Microscopic SEDIMENT EXAMINED Urine RBC (0 - 5 /HPF) PACKD H Urine Hemoglobin (NEG) LARGE H Urine Glucose (N MG/DL) 100 H Assessment/Plan Assessment/Plan 76yo M with non-mechanical fall causing right femoral neck fracture. Patient has been admitted to medicine. - OR for right hip ORIF - Pain control - Medical clearance. Cardiac clearance at discretion of medical team. - NPO - IVF - PRN zofran - NWB RLE - Care per primary team - Discussed with Dr. Lovelace Problem List: 1. Fracture of femoral neck, right Consult Acknowledgment - Thank you for your consult request.
--- NOTE | 2016-11-29 12:12 | PN- Att Addend ---
Attending Addendum Attending Brief Note Patient seen and examined. Agree with resident's note. This is a 76-year-old gentleman with a past medical history of hypertension, hypothyroidism who appears to have some chronicity to his problems. It appears that since March 2016 he's had an issue with difficulty with ambulation, unsteadiness, postural changes and has been using a walker and cane bought at local [email or web address] stores and not officially been worked up for these progressive gait and ambulation issues. Ultimately resulting in a fall on November 19 and now an ED visit for progressive weakness and pain which revealed a hip fracture. He doesn't have any overt clinical history, exam or radiologic and laboratory EKG findings of active myocardial ischemia, any arrhythmias or any valvular disease that would put him at high risk for surgery. He does have bilateral pedal edema in the context of an overly disheveled and unkempt state but doesn't appear to be in overt CHF. I think his RCRI is less than 1% and he is at low risk for operative morbidity or mortality for the hip fracture repair. Orthopedics will help us with DVT prophylaxis and antibiotic use. For today will hold his antihypertensives and restart them after the surgery. We'll continue his [place] Thyroid. Once his hip fracture is repaired he will need evaluation for the gait and posture issues with everything in the differential from mechanical etiologies like spinal stenosis to other things. Given his macrocytosis we'll check a TSH free T4 and a B12. Given the history off an elevated PSA as evidenced by labs in [facility] and difficulty urination with dark urine per the will check a CPK, and get a renal ultrasound and have a low threshold to get urology involved. We will closely follow-up.
--- NOTE | 2016-11-29 12:12 | Admission Certification ---
Admission Certification Certification Statement - As attending physician, I certify that at the time of - admission, based on clinical presentation, severity of - symptoms, need for further diagnostic testing and - therapeutic interventions, and risk of adverse outcomes - without in-hospital treatment, in my clinical assessment, - this patient requires an acute hospital stay for a minimum - of two nights or longer. I have also considered psychsocial - factors such as support system, advanced age, financial - issues, cognitive issues, and failed out-patient treatments, - past re-admission history, safety of patient, and lack of - compliance as applicable. Specific rationale supporting this admission is: Fall and hip fracture with weakness.
[2016-11-29 12:46] LABS: PT 12.5 SEC (9.4-12.5)
--- NOTE | 2016-11-29 13:50 | ULTRASOUND REPORT ---
EXAMINATION: US RETROPERITONEAL COMPLETE (RENAL) CLINICAL INFORMATION: Hematuria. History of elevated PSA. Patient states history of bloody urine after a fall 2010 days ago. COMPARISON: None TECHNIQUE: Real-time imaging of the kidneys and bladder. FINDINGS: RIGHT KIDNEY: 10.5 x 4.8 x 6.0 cm (SAG x AP x TRV). The kidney is normal in size, contour, and echogenicity. There is an exophytic 3.3 x 1.2 x 2.1 cm complicated cyst with thin internal incomplete septation in the lower pole of the left kidney Renal cortical thickness is normal. No calculi. No hydronephrosis. LEFT KIDNEY: 11.3 x 5.0 x 5.8 cm (SAG x AP x TRV). The kidney is normal in size, contour, and echogenicity. Renal cortical thickness is normal. No calculi or focal parenchymal lesions. No hydronephrosis. BLADDER: Completely decompressed by a Grimm catheter. SPLEEN: Normal, measuring 10.1 cm longitudinally. OTHER: There is a large complex cystic mass seen arising from the pelvis, measuring at least 22.7 x 12.9 cm and demonstrating slightly thickened incomplete septations and low-level internal echoes. Along the posterior aspect of this mass, irregular nodular/papillary projections are also seen. This mass appears separate from the bladder and the kidneys and is suspicious for a cystic neoplasm. IMPRESSION: 1. Large complex cystic mass in the pelvis, separate from the kidneys and bladder. This is suspicious for a cystic neoplasm though is incompletely assessed on this exam. Would recommend a CT scan of the abdomen and pelvis for further evaluation. 2. Small lower pole right renal cyst. 3. Left kidney unremarkable. 4. Bladder completely decompressed by a Grimm catheter. Findings discussed with Dr. Jeanine Nj 11/29/2016, 1:35 PM.
[2016-11-29 14:50] VITALS: BP 112/60; BP 142/88
[2016-11-29 16:22] VITALS: BP 124/60
--- NOTE | 2016-11-29 16:26 | CT SCAN REPORT ---
EXAMINATION: CT ABDOMEN AND PELVIS WITHOUT CONTRAST CLINICAL INFORMATION: 76-year-old male presented with hematuria and elevated PSA. Renal ultrasound done earlier today showed a large complex cystic mass within the pelvis separate from the kidneys and urinary bladder. A followup CT scan is requested for further clarification. COMPARISON: Renal ultrasound done on 11/29/2016. TECHNIQUE: Multidetector volumetric imaging was performed from the superior aspect of the liver through the pubic symphysis. Sagittal and coronal reformatted images were obtained on the technologist's workstation. DLP: 325.51 mGy-cm FINDINGS: LUNG BASES: The visualized lung bases are unremarkable. LIVER, GALLBLADDER, AND BILIARY TREE: The liver is normal in size, shape, and attenuation. No focal hepatic lesion or biliary ductal dilatation is present. The gallbladder is unremarkable with no evidence of radiopaque gallstones, gallbladder wall thickening, or obvious pericholecystic inflammatory changes. PANCREAS: Unremarkable. SPLEEN: Unremarkable. ADRENAL GLANDS: Unremarkable. KIDNEYS AND URETERS: Mild fullness of both renal collecting systems is present including fullness of both ureters (left greater than right). BLADDER: What was thought to be a cystic mass on the ultrasound done earlier today now appears to be distended urinary bladder with evidence of few air pockets and is extending superiorly just above the level of the umbilicus. There are a few internal thin septations visualized which may represent wall thickening with superimposed diverticula formation. Specific note is made of a few small focal areas of nonspecific soft tissue thickening, seen best on the lateral projection along the lower posterior wall and the base of the urinary bladder which may represent focal cystitis, focal wall thickening secondary to outlet obstruction. The Grimm's catheter is located outside of the bladder and is located posteriorly and slightly to the right of the midline within the prostate. The Grimm's catheter needs to be repositioned. Following optimal placement of the Grimm's catheter within the urinary bladder, a repeat followup limited ultrasound of the pelvis should be considered to document collapse of the distended bladder (confirming this structure to be urinary bladder). GASTROINTESTINAL TRACT: The small and large bowel are unremarkable. The appendix is not visualized. ABDOMINAL WALL: There is a right-sided inguinal hernia. No definite bowel is identified within the hernia sac. Subtle soft tissue density noted may represent small amount of fluid. LYMPH NODES: Normal. VASCULAR: Diffuse atherosclerotic changes are noted within the aorta and its branches without aneurysm formation. PELVIC VISCERA: The prostate is enlarged, lobulated and is protruding into the base of the urinary bladder. The Grimm's catheter is localized within the prostatic gland slightly to the right of the midline and needs to be repositioned. Small amount of free fluid is noted within the pelvis. No free air is seen. OSSEOUS STRUCTURES: Previously documented intertrochanteric fracture of the right femur is noted. Moderate diffuse osteopenia, grade 1 anterolisthesis of L4 over L5 is seen. Significant facet joint arthritic changes are present. IMPRESSION: 1. Mild fullness of both renal collecting systems and both ureters is present with moderately enlarged prostate which is protruding into the urinary bladder. A Grimm's catheter is localized within the prostatic gland slightly to the right of the midline and needs to be repositioned. 2. The sonographic suspected large cystic mass appeared to be markedly distended urinary bladder which is seen extending above the level of the umbilicus. There is suggestion of nonspecific focal soft tissue thickening identified within the base, lower posterior wall of the urinary bladder with thin septation which presumably represents urinary bladder wall thickening and superimposed diverticula. Following repositioning of the Grimm's catheter, a followup limited pelvic ultrasound to document collapse of the distended urinary bladder, thus confirming the cystic structure to be the urinary bladder is recommended. The focal soft tissue prominence within the urinary bladder may represent focal cystitis and/or other pathology including neoplasm. Followup direct visualization/cystoscopy may be considered if clinically appropriate for further clarification. The findings and the recommendations were reviewed with Dr. Wilson at 3:44 PM on 11/29/2016.
--- NOTE | 2016-11-29 16:27 | NUR ---
MD FROST CALLED THIS RN, AND ASKED TO D/C SAVAGE AND BS PATIENT, SAVAGE D/C, EMPTIED 100ML OF BLOOD, BLADDE SCANED PT @ >999 ML, URINAL GIVEN TO PATIENT TO ATTEMPT TO VOID, MD FROST AWARE, WILL CONTINUE TO MONITOR.
--- NOTE | 2016-11-29 17:04 | Event Note ---
Event Note Event Note: We had ordered a renal ultrasound for the patient given the patient's gave a history of dark colored gritty urine prior to coming to the hospital and given the difficulty with putting the Grimm in and hematuria in the initial part of the Grimm put in by the ER. I was called by Dr. Stewart from radiology that the ultrasound is uninterpretable due to a large complex cystic mass that she couldn 't tell whether it was the kidney or the bladder and she recommended an urgent CT scan with IV contrast given that this could have implications for when he goes to the OR for his hip fracture repair. We were then called by Dr. Cerna from radiology that the CT scan of the abdomen and pelvis shows that the large complex cystic mass was actually a markedly distended bladder right up to the level of the umbilicus and the Grimm catheter was actually within the prostate. I spoke to both Dr. Mariscal and then called urology Dr. Morel urgently. Dr. Morel explained that he would have to take the patient to the OR and under cystoscopic guidance replace a catheter to decompress this distended bladder and ensure that the prostate was okay. Dr. Mariscal will talk to Dr. Morel and if they can coordinate, right after this is done Dr. Mariscal will do the hip fracture repair in the OR. The resident Dr Wilson and I spoke to the patient and patient's . They're aware of the markedly distended bladder with the need to urgently decompress. We have taken out the catheter that was in the prostate and he is going to go to the OR for cystoscopy and replacement of the catheter and possible hip fracture repair if Dr. Mariscal can coordinate it as well.
--- NOTE | 2016-11-29 18:17 | NUR ---
PT LEFT FLOOR VIA PT OWN BED TO OR.
--- NOTE | 2016-11-29 19:20 | Event Note ---
See Addendum Event Note Event Note: SITUATION: * Cystic mass in pelvis on renal ultrasound * Distended urinary bladder above the umbilicus on CT abdomen pelvis BRIEF: * Grimm catheter was placed overnight while patient was ED. Unfortunately in the setting of his history of BPH this did require multiple attempts for placement * A follow-up renal ultrasound this morning in the setting of pipo hematuria and the uncertainty of whether he did have a urethral injury s/p right greater trochanter fracture yielded findings of a cystic mass in the pelvic region * Follow-up CT abdomen pelvis: Distended urinary bladder above the umbilicus with evidence of free air pockets. Few internal thin septations visualized that may represent wall thickening with superimposed diverticular formation. Grimm catheter is located outside of the bladder and is located posteriorly and slightly to the right of the midline within the prostate. A/P: * Dr Morel will be coming in to take the patient to the operating room emergently for planned cystoscopy with replacement of Grimm catheter * Plan for simultaneous orthopedic surgery if feasible * Postprocedure: Follow up recommendations from urology with regards to fully management * This patient does have multiple factors that could contract bridge to MALIK: Possible rhabdo in the setting of immobility prior to presentation, contrast administered during CT and prolonged duration of postobstructive uropathy * Close monitoring of CK and creatinine with hydration * Patient will require anticoagulation post ORIF. Close monitoring of H&H post procedure
--- NOTE | 2016-11-29 22:28 | RADIOLOGY REPORT ---
EXAMINATION: [place] C-ARM ASSISTANCE AND SPOT RADIOGRAPH CLINICAL INDICATION: A 76-year-old male for cystoscopy and cystoscopic placement of Grimm's catheter. COMPARISON: CT of the abdomen and pelvis and ultrasound of the kidneys done earlier today. TECHNIQUE: C-arm fluoroscopy assistance was provided at the time of cystoscopy and cystoscopic placement of a Grimm's catheter. Fluoroscopy Time: 31 seconds. FINDINGS: Single spot radiograph over the region of the partially included pelvis centering over the symphysis pubis is noted. There is a linear radiopaque contrast identified at midline overlying the symphysis pubis which appears to be localized to the region of the prostatic and proximal urethra. Curvilinear contrast is also noted projecting in the region of the pelvis which may represent intraluminal or extraluminal contrast. Note is also made of a tubular partially included contrast collection, extending from the right hemipelvis to the midline, only partially included, not optimally localized. IMPRESSION: 1. Single spot radiograph obtained at the time of the procedure shows presence of radiopaque contrast projecting in the region of the prostatic and adjacent proximal urethra. 2. Curvilinear contrast is also noted projecting within the pelvis, may represent intraluminal or extraluminal contrast, not accurately localized. This critical result was discussed with Dr. Morel at 10:10 PM on 11/29/2016 and it was ascertained that the content and urgency of the report was understood at the time of direct communication. A Grimm's catheter has been placed within the bladder at the time of the procedure.
[2016-11-29 23:15] VITALS: BP 80/30
--- NOTE | 2016-11-29 23:16 | PN- Orthopedic ---
Subjective Subjective: Post Op Note s/p right hip hemiarthroplasty Patient without c/o. Pain controlled at the moment. Denies numbness/tingling in RLE. Denies CP/SOB. Objective Vital Signs and I&Os Vital Signs Date Time Temp Pulse Resp B/P Pulse O2 O2 Flow FiO2 Ox Delivery Rate 11/29 1622 98.3 74 20 124/60 94 Room Air 11/29 1450 98.1 81 20 142/88 98 11/29 0826 73 20 133/57 97 Room Air 11/29 0544 98.3 69 22 142/71 95 Room Air 11/29 0119 97.3 77 22 159/74 95 Room Air Intake & Output 11/29 1600 11/29 0800 11/29 0000 11/28 1600 11/28 0800 11/28 0000 Intake Total 375 Output Total 50 Balance 375 -50 Intake, IV 375 Output, Urine 50 Patient 200 lb 200 lb Weight Physical Exam: General: NAD, comfortable, A&Ox3 Chest: NRD, breathing comfrotably on RA. RRR. Abdomen: soft, nontender, nondistended. : CBI catheter running with slight blood tinged urine drainage. Ext: Right hip dressing c/d/i. Right thigh soft. No calve swelling/TTP, neurovascularly intact bilateral lower extremities Current Medications: Current Medications Sig/Carlos Start time Last Medication Dose Route Stop Time Status Admin Acetaminophen 650 MG Q6P PRN 11/29 2144 AC PO Acetaminophen 650 MG Q6P PRN 11/29 1100 DC PO Amlodipine Besylate 5 MG DAILY 11/30 1000 CAN PO Artificial Tears 2 GTT 4 TIMES/DAY 11/29 2200 AC OPH Artificial Tears 2 GTT 4 TIMES/DAY 11/29 1106 DC 11/29 OPH 1847 Ceftriaxone Sodium 1,000 MG DAILY 11/29 2315 UNVr IV Docusate Sodium 100 MG BID PRN 11/29 2145 AC PO Docusate Sodium 100 MG BID PRN 11/29 1230 DC PO Enoxaparin Sodium 40 MG DAILY 11/30 1000 UNVr SC Ketorolac 0 .STK-MED ONE 11/29 0154 DC Tromethamine .ROUTE Ketorolac 30 MG ONCE ONE 11/29 0145 DC 11/29 Tromethamine IM 11/29 0146 0154 Lisinopril 2.5 MG DAILY 11/30 1000 CAN PO Morphine Sulfate 2 MG Q4P PRN 11/29 214 AC IV Morphine Sulfate 2 MG Q4P PRN 11/29 1100 DC 11/29 IV 1215 Morphine Sulfate 0 .STK-MED ONE 11/29 0820 DC .ROUTE Morphine Sulfate 2 MG ONCE ONE 11/29 0800 DC 11/29 IV 11/29 0801 0825 Morphine Sulfate 0 .STK-MED ONE 11/29 0421 DC .ROUTE Morphine Sulfate 4 MG ONCE ONE 11/29 0345 DC 11/29 IV 11/29 0346 0422 Oxycodone/ 1 TAB Q6P PRN 11/29 214 AC Acetaminophen PO Oxycodone/ 1 TAB Q6P PRN 11/29 1100 DC Acetaminophen PO Senna 187 MG AT BEDTIME NEED.. 11/29 2144 AC PO Senna 187 MG AT BEDTIME PRN 11/29 1230 DC PO Sodium Chloride 1,000 ML Q13H 11/29 2130 AC IV Sodium Chloride 1,000 ML Q13H 11/29 1015 DC 11/29 IV 11/29 1814 1120 Thyroid 1 GR DAILY AC 11/30 0700 AC PO Results Last 48 Hours of Labs: Laboratory Tests 11/29 11/29 11/29 2220 1158 0545 Chemistry Creatine Kinase (55 - 170 U/L) 277 H Coagulation PT (9.4 - 12.5 SEC) 12.5 INR (0.90 - 1.17) 1.19 H Hematology CBC w Diff Pending WBC Pending RBC Pending Hgb Pending Hct Pending MCV Pending MCH Pending RDW Pending Plt Count Pending MPV Pending PUBS MCHC Pending Urines Urine Color (YEL,AMB,STR) BLDY H Urine Clarity (CLEAR) TURBD H Urine pH (5.0 - 8.0) 8.0 Ur Specific [place] (1.001 - 1.035) 1.025 Urine Protein (NEG,<30 MG/DL) >=300 H Urine Ketones (NEG) NEG Urine Nitrite (NEG) POS H Urine Bilirubin (NEG) NEG@ICTO Urine Urobilinogen (0.1 - 1.0 EU/dl) 0.2 Ur Leukocyte Esterase (NEG) TRACE H Ur Microscopic SEDIMENT EXAMINED Urine RBC (0 - 5 /HPF) PACKD H Urine Hemoglobin (NEG) LARGE H Urine Glucose (N MG/DL) 100 H 11/29 0358 Chemistry Sodium (137 - 145 mmol/L) 138 Potassium (3.5 - 5.1 mmol/L) 4.3 Chloride (98 - 107 mmol/L) 102 Carbon Dioxide (22 - 30 mmol/L) 27 Anion Gap (5 - 16) 9 BUN (9 - 20 mg/dL) 27 H Creatinine (0.7 - 1.2 mg/dL) 1.0 Estimated GFR (>60 ml/min) > 60 BUN/Creatinine Ratio (7 - 25 %) 27.0 H Glucose (65 - 99 mg/dL) 113 H Calcium (8.4 - 10.2 mg/dL) 9.3 Total Bilirubin (0.2 - 1.3 mg/dL) 0.7 AST (17 - 59 U/L) 31 ALT (21 - 72 U/L) 30 Alkaline Phosphatase (< 127 U/L) 86 Troponin I (<0.11 ng/ml) < 0.01 Total Protein (6.3 - 8.2 g/dL) 6.6 Albumin (3.5 - 5.0 g/dL) 3.7 Globulin (1.9 - 4.2 gm/dL) 2.9 Albumin/Globulin Ratio (1.1 - 2.2 %) 1.3 Vitamin B12 (239 - 931 pg/mL) 499 25-OH Vitamin D Total (30 - 100 ng/ml) 21.1 L Folate (2.76 - 20.0 ng/mL) > 20.0 H TSH (0.270 - 4.200 uIU/mL) 1.990 Free T4 (0.78 - 2.44 ng/dL) 0.64 L Hematology CBC w Diff NO MAN DIFF REQ WBC (4.8 - 10.8 /CUMM) 7.2 RBC (4.70 - 6.10 /CUMM) 3.47 L Hgb (14.0 - 18.0 G/DL) 11.4 L Hct (42 - 52 %) 33.6 L MCV (80.0 - 94.0 FL) 97.0 H MCH (27.0 - 31.0 PG) 32.8 H RDW (11.5 - 14.5 %) 15.2 H Plt Count (130 - 400 /CUMM) 188 MPV (7.4 - 10.4 FL) 7.7 Gran % (42.2 - 75.2 %) 82.7 H Lymphocytes % (20.5 - 51.1 %) 10.1 L Monocytes % (1.7 - 9.3 %) 6.7 Eosinophils % (0 - 5 %) 0.1 Basophils % (0.0 - 2.0 %) 0.4 Absolute Granulocytes (1.4 - 6.5 /CUMM) 6.0 Absolute Lymphocytes (1.2 - 3.4 /CUMM) 0.7 L Absolute Monocytes (0.10 - 0.60 /CUMM) 0.5 Absolute Eosinophils (0.0 - 0.7 /CUMM) 0 Absolute Basophils (0.0 - 0.2 /CUMM) 0 PUBS MCHC (33.0 - 37.0 G/DL) 33.9 Assessment/Plan Assessment/Plan 76yo M POD#0 s/p cystoscopy and jones place, right hip hemiarthroplasty. Stable. - Pain control - Lovenox in a.m. - cbc, bep in a.m. - I/O's - continue CBI - LEAVE JONES CATHETER IN PLACE - PT in a.m., WBAT - bowel regimen - PRN zofran - Care per primary team
[2016-11-29 23:17] LABS: ABSOLUTE BASOPHIL COUNT 0 /CUMM (0.0-0.2); ABSOLUTE EOSINOPHIL COUNT 0 /CUMM (0.0-0.7); ABSOLUTE GRANULOCYTE CT 11.4 /CUMM (1.4-6.5); ABSOLUTE LYMPH COUNT 0.9 /CUMM (1.2-3.4); ABSOLUTE MONOCYTE COUNT 2.1 /CUMM (0.10-0.60); BASOPHIL % 0.2 % (0.0-2.0); EOSINOPHIL % 0.1 % (0-5); GRANULOCYTE % 79.4 % (42.2-75.2); HEMATOCRIT 29.8 % (42-52); MEAN CORPUSCULAR HGB 32.8 PG (27.0-31.0); MEAN CORPUSCULAR HGB CONC 33.6 G/DL (33.0-37.0); MEAN CORPUSCULAR VOLUME 97.7 FL (80.0-94.0); MEAN PLATELET VOLUME 8.3 FL (7.4-10.4); PLATELET COUNT 164 /CUMM (130-400); RBC DISTRIBUTION WIDTH 14.9 % (11.5-14.5); RED BLOOD CELL CT 3.05 /CUMM (4.70-6.10)
[2016-11-29 23:25] LABS: WHITE BLOOD CELL COUNT 14.4 /CUMM (4.8-10.8)
[2016-11-30] VITALS (7 sets, daily range): BP systolic 92–116; BP diastolic 38–62
--- NOTE | 2016-11-30 | NUR ---
RECEIVED PT FROM PACU AT 2315. SURG PA RONAN, RESIDENT GUANACO FROST AND TRAFFIC [employer] SUPERVISOR CAMILLA MORTON CAME TO SEE THE PT. SURG PA AND RESIDENT LEFT AFTER ASSESSING THE PT. PT'S BLOODWORK DRAWN. BP 80/30 HR 57 RR 16 SPO2 89% RA T 96.7 AXILLARY. PT STARTED ON 4L O2 VIA NC. TRA[employer] SUPERVISOR SELENE PRESENT IN THE ROOM. 1L NS BOLUS INITIATED. PT ORIENTED X3. LETHARGIC. ABLE TO ANSWER ALL QUESTIONS CORRECTLY. C XRAY ORDERED BY THE TRAFFIC WAREHOUSE SUPERVISOR. CBI IN PROGRESS WITH BLOOD TINGED OUTPUT. DRSG TO R HIP CDI. + PEDAL PULSES. PT ABLE TO WIGGLE HIS TOES. ABDUCTOR PILLOW IN PLACE. ALPS PLACED. WILL CONTINUE TO MONITOR.
--- NOTE | 2016-11-30 00:29 | RADIOLOGY REPORT ---
EXAMINATION: XR PORTABLE CHEST CLINICAL INFORMATION: Desaturation. Question aspiration. COMPARISON: Chest x-ray November 29, 2016. TECHNIQUE: Portable AP view of the chest was obtained. FINDINGS: Symmetric lung inflation. There is new opacity at the left lung base, most likely atelectasis though early aspiration or pneumonia could appear similar. Lungs are otherwise clear. Central vascular congestion without overt edema. There is no pneumothorax. No pleural effusions. Cardiac silhouette size is normal. No acute osseous findings. IMPRESSION: There is new opacity at the left lung base, most likely atelectasis though early aspiration or pneumonia could appear similar.
--- NOTE | 2016-11-30 01:11 | Event Note ---
Event Note Event Note: Patient came from the OR. Vitals were checked which showed that the patient blood pressure is 80/40,SPO2 88% on 1 liter of oxygen. I examined the patient at the bedside. He was oriented to time, place and person, following verbal commands. On examination, he was looking pale, blood pressure was 80/40, and SPO2 was 88% on 1 liter. We called respiratory therapist, they increase oxygen to 4 liters,to give 1 liter bolus of normal saline, recheck CBC, ABG, chest x- ray, troponin, EKG, lactic acid. Hemoglobin was 10.1, ABG showed -pH 7.43, PCO2 33, PO2 151, bicarbonate 22 , chest x-ray showing right lower lobe atelectasis/ pneumonia , probably aspiration, troponins was negative, EKG shows T-wave inversion in V5, V6, otherwise normal sinus rhythm. After 1 liter of normal saline blood pressure increased to 96/40. We advised for blood culture and change antibiotics from ceftriaxone to Unasyn. We advised to give 500 cc of normal saline bolus followed by 150 mL per hour. Advised for strict intake output charting. We will repeat serial EKG and troponins. Resident and attending aware.
[2016-11-30 05:27] LABS: ABSOLUTE BASOPHIL COUNT 0 /CUMM (0.0-0.2); ABSOLUTE EOSINOPHIL COUNT 0 /CUMM (0.0-0.7); ABSOLUTE GRANULOCYTE CT 6.5 /CUMM (1.4-6.5); ABSOLUTE LYMPH COUNT 0.7 /CUMM (1.2-3.4); BASOPHIL % 0.1 % (0.0-2.0); EOSINOPHIL % 0 % (0-5); GRANULOCYTE % 79.1 % (42.2-75.2); MEAN CORPUSCULAR HGB 32.4 PG (27.0-31.0); MEAN CORPUSCULAR HGB CONC 32.9 G/DL (33.0-37.0); MEAN CORPUSCULAR VOLUME 98.4 FL (80.0-94.0); MEAN PLATELET VOLUME 8.1 FL (7.4-10.4); PLATELET COUNT 141 /CUMM (130-400); RBC DISTRIBUTION WIDTH 15.4 % (11.5-14.5); WHITE BLOOD CELL COUNT 8.2 /CUMM (4.8-10.8)
[2016-11-30 05:57] LABS: RED BLOOD CELL CT 2.17 /CUMM (4.70-6.10)
[2016-11-30 05:58] LABS: HEMATOCRIT 21.3 % (42-52)
--- NOTE | 2016-11-30 07:47 | PN- Att Addend ---
Attending Addendum Attending Brief Note Patient seen and examined. Agree with resident's note. Events overnight noted. Patient was taken to the OR for a cystoscopy and Grimm placement and to decompress the bladder. He also had CBI overnight for hematuria. Subsequent to that he also had a right hemiarthroplasty done. Overnight he desaturated and has a new left lung opacity. He is on IV Unasyn for the suspected aspiration pneumonia. He is awake and alert and mentating well. He is complaining of discomfort at the tips of his heels but otherwise feels okay. His pressure is 90/50 and he is getting a bolus of normal saline at 200 and hour. His labs reflect an acute blood loss anemia and we are going to give him 1 unit of blood and follow the pressure closely. He is a 76-year-old male with a past medical history of hypertension who's been weak since March 2016 and has had difficulty ambulation with weakness and postural changes. He hasn't seen a doctor for it and it ultimately resulted in a fall on November 19 and an ER visit yesterday which revealed a femoral fracture. He is now status post a right hemiarthroplasty and urology is actively helping us with the obstructive uropathy and urinary retention.
--- NOTE | 2016-11-30 07:52 | PN- Orthopedic ---
Subjective Subjective: No acute events overnight. Tolerating clear liquids, has not been advanced yet. Complains of heel pain and requests heel padding. States that he has history of falls and has concerns ambulating with PT. Jones in place with CBI. Objective Vital Signs and I&Os Vital Signs Date Time Temp Pulse Resp B/P Pulse O2 O2 Flow FiO2 Ox Delivery Rate 11/30 0635 99.1 74 18 92/40 94 Nasal 1.0L Cannula 11/30 0223 97.2 74 18 100/56 97 Nasal Cannula 11/30 0115 97.0 72 16 104/38 93 Nasal 4.0L Cannula 11/30 0000 93 Nasal 4.0L Cannula 11/30 0000 64 16 96/38 94 Nasal 4.0L Cannula 11/29 2315 96.8 57 16 80/30 93 Nasal 4.0L Cannula 11/29 1622 98.3 74 20 124/60 94 Room Air 11/29 1450 98.1 81 20 142/88 98 11/29 0826 73 20 133/57 97 Room Air Intake & Output 11/30 0800 11/30 0000 11/29 1600 11/29 0800 11/29 0000 11/28 1600 Intake Total 0 375 Output Total 100 50 Balance -100 375 -50 Intake, IV 0 375 Intake, Oral 0 Number 0 Bowel Movements Output, Urine 100 50 Patient 200 lb 200 lb Weight Physical Exam: General: CAOx3, NAD. Lungs: Normal work of breathing. On oxygen via nasal cannula. Extremities: Left lower extremity with postoperative dressing clean, dry, intact. Wiggles toes. Current Medications: Current Medications Sig/Carlos Start time Last Medication Dose Route Stop Time Status Admin Acetaminophen 650 MG Q6P PRN 11/29 2145 AC PO Acetaminophen 1,000 MG .STK-MED ONE 11/29 1751 DC IV 11/29 1752 Acetaminophen 650 MG Q6P PRN 11/29 1100 DC PO Amlodipine Besylate 5 MG DAILY 11/30 1000 CAN PO Ampicillin Sodium/ 3,000 MG Q6H 11/30 0200 AC 11/30 Sulbactam Sodium IV 0220 Sodium Chloride 100 ML Artificial Tears 2 GTT 4 TIMES/DAY 11/29 2200 AC 11/30 OPH 0033 Artificial Tears 2 GTT 4 TIMES/DAY 11/29 1106 DC 11/29 OPH 1847 Ceftriaxone Sodium 1,000 MG AT BEDTIME 11/29 2315 DC 11/30 IV 0031 Docusate Sodium 100 MG BID PRN 11/29 2145 AC PO Docusate Sodium 100 MG BID PRN 11/29 1230 DC PO Enoxaparin Sodium 40 MG DAILY 11/30 1000 DC SC Enoxaparin Sodium 40 MG DAILY 11/30 1000 AC SC Fentanyl Citrate 250 MCG .STK-MED ONE 11/29 1751 DC IM 11/29 1752 Hydromorphone HCl 2 MG .STK-MED ONE 11/29 1751 DC IM 11/29 1752 Lisinopril 2.5 MG DAILY 11/30 1000 CAN PO Morphine Sulfate 2 MG Q4P PRN 11/29 2145 AC 11/30 IV 0425 Morphine Sulfate 2 MG Q4P PRN 11/29 1100 DC 11/29 IV 1215 Morphine Sulfate 0 .STK-MED ONE 11/29 0820 DC .ROUTE Morphine Sulfate 2 MG ONCE ONE 11/29 0800 DC 11/29 IV 11/29 0801 0825 Oxycodone/ 1 TAB Q6P PRN 11/29 2145 AC 11/30 Acetaminophen PO 0632 Oxycodone/ 1 TAB Q6P PRN 11/29 1100 DC Acetaminophen PO Senna 187 MG AT BEDTIME NEED.. 11/29 2145 AC PO Senna 187 MG AT BEDTIME PRN 11/29 1230 DC PO Sodium Chloride 1,000 ML Q10H 11/30 0145 AC 11/30 IV 0327 Sodium Chloride 500 ML BOLUS ONE 11/30 0045 DC 11/30 IV 11/30 0144 0142 Sodium Chloride 1,000 ML BOLUS ONE 11/30 0030 DC 11/30 IV 11/30 0129 0030 Sodium Chloride 1,000 ML BOLUS ONE 11/29 2330 DC 11/29 IV 11/30 0029 2330 Sodium Chloride 1,000 ML Q13H 11/29 2130 CAN IV Sodium Chloride 1,000 ML Q13H 11/29 1015 DC 11/29 IV 11/29 1814 1120 Thyroid 1 GR DAILY AC 11/30 0700 AC 11/30 PO 0617 Results Last 48 Hours of Labs: Laboratory Tests 11/30 11/30 11/30 0600 0450 0450 Chemistry Sodium (137 - 145 mmol/L) 136 L Potassium (3.5 - 5.1 mmol/L) 4.2 Chloride (98 - 107 mmol/L) 106 Carbon Dioxide (22 - 30 mmol/L) 26 Anion Gap (5 - 16) 4 L BUN (9 - 20 mg/dL) 24 H Creatinine (0.7 - 1.2 mg/dL) 1.0 Estimated GFR (>60 ml/min) > 60 BUN/Creatinine Ratio (7 - 25 %) 24.0 Lactic Acid (0.7 - 2.1 mmol/L) 1.6 Creatine Kinase (55 - 170 U/L) Cancelled 691 H Troponin I (<0.11 ng/ml) < 0.01 Hematology CBC w Diff Cancelled NO MAN DIFF REQ WBC (4.8 - 10.8 /CUMM) Cancelled 8.2 RBC (4.70 - 6.10 /CUMM) Cancelled 2.17 L Hgb (14.0 - 18.0 G/DL) Cancelled 7.0 *L Hct (42 - 52 %) Cancelled 21.3 L MCV (80.0 - 94.0 FL) Cancelled 98.4 H MCH (27.0 - 31.0 PG) Cancelled 32.4 H RDW (11.5 - 14.5 %) Cancelled 15.4 H Plt Count (130 - 400 /CUMM) Cancelled 141 MPV (7.4 - 10.4 FL) Cancelled 8.1 Gran % (42.2 - 75.2 %) 79.1 H Lymphocytes % (20.5 - 51.1 %) 8.6 L Monocytes % (1.7 - 9.3 %) 12.2 H Eosinophils % (0 - 5 %) 0 Basophils % (0.0 - 2.0 %) 0.1 Absolute Granulocytes (1.4 - 6.5 /CUMM) 6.5 Absolute Lymphocytes (1.2 - 3.4 /CUMM) 0.7 L Absolute Monocytes (0.10 - 0.60 /CUMM) 1.0 H Absolute Eosinophils (0.0 - 0.7 /CUMM) 0 Absolute Basophils (0.0 - 0.2 /CUMM) 0 PUBS MCHC (33.0 - 37.0 G/DL) Cancelled 32.9 L 11/30 11/29 11/29 0200 2350 2310 Blood Gas pH (7.35 - 7.45 PH) 7.43 pCO2 (35 - 45 TORR) 33 L pO2 (80 - 100 TORR) 151 H HCO3 (21 - 28 MEQ/L) 22 ABG O2 Sat (Measured) (>96.0 %) 98.0 P-50 (Temp Corrected) N Carboxyhemoglobin (1.5 - 5.0 %) 0.3 L O2 Concentration % 4L O2 Delivery Method N/C Chemistry Sodium (137 - 145 mmol/L) 136 L Potassium (3.5 - 5.1 mmol/L) 4.3 Chloride (98 - 107 mmol/L) 103 Carbon Dioxide (22 - 30 mmol/L) 28 Anion Gap (5 - 16) 5 BUN (9 - 20 mg/dL) 27 H Creatinine (0.7 - 1.2 mg/dL) 1.1 Estimated GFR (>60 ml/min) > 60 BUN/Creatinine Ratio (7 - 25 %) 24.5 Lactic Acid (0.7 - 2.1 mmol/L) 1.6 Troponin I (<0.11 ng/ml) < 0.01 Miscellaneous Phlebotomy Draw Site RIGHT RADIAL 11/29 11/29 11/29 2220 2213 1158 Chemistry Creatine Kinase (55 - 170 U/L) 277 H Coagulation PT (9.4 - 12.5 SEC) 12.5 INR (0.90 - 1.17) 1.19 H Hematology CBC w Diff NO MAN DIFF REQ Cancelled WBC (4.8 - 10.8 /CUMM) 14.4 H Cancelled RBC (4.70 - 6.10 /CUMM) 3.05 L Cancelled Hgb (14.0 - 18.0 G/DL) 10.0 L Cancelled Hct (42 - 52 %) 29.8 L Cancelled MCV (80.0 - 94.0 FL) 97.7 H Cancelled MCH (27.0 - 31.0 PG) 32.8 H Cancelled RDW (11.5 - 14.5 %) 14.9 H Cancelled Plt Count (130 - 400 /CUMM) 164 Cancelled MPV (7.4 - 10.4 FL) 8.3 Cancelled Gran % (42.2 - 75.2 %) 79.4 H Lymphocytes % (20.5 - 51.1 %) 6.0 L Monocytes % (1.7 - 9.3 %) 14.3 H Eosinophils % (0 - 5 %) 0.1 Basophils % (0.0 - 2.0 %) 0.2 Absolute Granulocytes (1.4 - 6.5 /CUMM) 11.4 H Absolute Lymphocytes (1.2 - 3.4 /CUMM) 0.9 L Absolute Monocytes (0.10 - 0.60 /CUMM) 2.1 H Absolute Eosinophils (0.0 - 0.7 /CUMM) 0 Absolute Basophils (0.0 - 0.2 /CUMM) 0 PUBS MCHC (33.0 - 37.0 G/DL) 33.6 Cancelled 11/29 11/29 0545 0359 Chemistry Sodium (137 - 145 mmol/L) 138 Potassium (3.5 - 5.1 mmol/L) 4.3 Chloride (98 - 107 mmol/L) 102 Carbon Dioxide (22 - 30 mmol/L) 27 Anion Gap (5 - 16) 9 BUN (9 - 20 mg/dL) 27 H Creatinine (0.7 - 1.2 mg/dL) 1.0 Estimated GFR (>60 ml/min) > 60 BUN/Creatinine Ratio (7 - 25 %) 27.0 H Glucose (65 - 99 mg/dL) 113 H Calcium (8.4 - 10.2 mg/dL) 9.3 Total Bilirubin (0.2 - 1.3 mg/dL) 0.7 AST (17 - 59 U/L) 31 ALT (21 - 72 U/L) 30 Alkaline Phosphatase (< 127 U/L) 86 Troponin I (<0.11 ng/ml) < 0.01 Total Protein (6.3 - 8.2 g/dL) 6.6 Albumin (3.5 - 5.0 g/dL) 3.7 Globulin (1.9 - 4.2 gm/dL) 2.9 Albumin/Globulin Ratio (1.1 - 2.2 %) 1.3 Vitamin B12 (239 - 931 pg/mL) 499 25-OH Vitamin D Total (30 - 100 ng/ml) 21.1 L Folate (2.76 - 20.0 ng/mL) > 20.0 H TSH (0.270 - 4.200 uIU/mL) 1.990 Free T4 (0.78 - 2.44 ng/dL) 0.64 L Hematology CBC w Diff NO MAN DIFF REQ WBC (4.8 - 10.8 /CUMM) 7.2 RBC (4.70 - 6.10 /CUMM) 3.47 L Hgb (14.0 - 18.0 G/DL) 11.4 L Hct (42 - 52 %) 33.6 L MCV (80.0 - 94.0 FL) 97.0 H MCH (27.0 - 31.0 PG) 32.8 H RDW (11.5 - 14.5 %) 15.2 H Plt Count (130 - 400 /CUMM) 188 MPV (7.4 - 10.4 FL) 7.7 Gran % (42.2 - 75.2 %) 82.7 H Lymphocytes % (20.5 - 51.1 %) 10.1 L Monocytes % (1.7 - 9.3 %) 6.7 Eosinophils % (0 - 5 %) 0.1 Basophils % (0.0 - 2.0 %) 0.4 Absolute Granulocytes (1.4 - 6.5 /CUMM) 6.0 Absolute Lymphocytes (1.2 - 3.4 /CUMM) 0.7 L Absolute Monocytes (0.10 - 0.60 /CUMM) 0.5 Absolute Eosinophils (0.0 - 0.7 /CUMM) 0 Absolute Basophils (0.0 - 0.2 /CUMM) 0 PUBS MCHC (33.0 - 37.0 G/DL) 33.9 Urines Urine Color (YEL,AMB,STR) BLDY H Urine Clarity (CLEAR) TURBD H Urine pH (5.0 - 8.0) 8.[address] [place] (1.001 - 1.035) 1.025 Urine Protein (NEG,<30 MG/DL) >=300 H Urine Ketones (NEG) NEG Urine Nitrite (NEG) POS H Urine Bilirubin (NEG) NEG@ICTO Urine Urobilinogen (0.1 - 1.0 EU/dl) 0.2 Ur Leukocyte Esterase (NEG) TRACE H Ur Microscopic SEDIMENT EXAMINED Urine RBC (0 - 5 /HPF) PACKD H Urine Hemoglobin (NEG) LARGE H Urine Glucose (N MG/DL) 100 H Assessment/Plan Assessment/Plan This is a 76 year old male with a complicated past medical history admitted for fall sustaining a left hip fracture s/p left hemiarthroplasty on 11/29/2016, postoperative day 1. Transferred to ICU for hypotension. - pain control - continue bowel regimen - advance diet as tolerated to heart healthy diet - DVT prophylaxis: Lovenox 40 mg today - PT: weight bearing as tolerated - CBC, BMP reviewed. Agree with blood transfusion today - Continue jones with CBI, follow up with urology recommendations - Remainder of medical care per primary team - Will continue to follow, will likely need STR - This case was discussed with Dr. Eldridge, and Dr. Lovelace
--- NOTE | 2016-11-30 07:57 | NUR ---
Physical therapy: Orders received, chart reviewed. Per MD, patient hypotensive and set to be transfused 1 unit PRBCs. H and H critical. MD asked PT to come back following transfusion. Will follow up today if able. Thank you.
--- NOTE | 2016-11-30 08:15 | NUR ---
PT'S BP 78/30. DR KERN UPDATED WHO ORDERED A BOLUS AND TRANSFER TO ICU. PT A/ORIENTED X3. ON 2L O2 NC. 1U RBC TRANSFUSING. CBI IN PROGRESS WITH LIGHT PINK OUTPUT. REPORT GIVEN TO SHAVON LIU IN [facility].
--- NOTE | 2016-11-30 08:24 | PN- Housestaff ---
Subjective Follow-up For: Right femur fracture, s/p Rt hip ORIF Urinary retention s/p cystoscopy and jones placement Hematuria and CBI Low blood pressure Left lung opacity possibly aspiration PNA ABLA, undergoing pRBC transfusion Assessment/Plan Assessment: 76-year-old gentleman with a PMH of HTN, hypothyroidism who presents with complaints of right-sided hip pain. Patient suffered a fall 10 days ago while ambulating with a cane and has since reported progressive/persistent pain mainly localized in the right hip and occasional radiation down towards the leg. VS on admission: BP 159/74, HR 77, RR 22, SPO2 95% on RA, T 97.3 Pertinent labs: CBC 7.2, H&H 11.4/33.6, platelets 188, BUN/CR 27/1.0, glucose 113 UA: Cloudy, turbid, greater than 300 protein, positive nitrites, trace leukocyte esterase, packed RBCs, large hemoglobin Right hip x-ray: Fracture of the right femoral neck with distal fragment displaced CXR: Unremarkable Problem list: 1. Right femoral neck fracture 2. Hematuria 3. Gait instability 4. HEENT eyes 5. Occasional constipation 6. Hypertension 7. Hypothyroidism Plan: 1. Right femoral neck fracture * Risk stratification under our RCRI guidelines show low risk of intraoperative cardiac event 0.4-1%. At this time no history or radiologic findings/physical exam concerning for heart disease. However, 2+ pitting edema * Patient nothing by mouth at this time. Maintenance fluids of normal saline at 5 mL an hour. 2. Hematuria * Pt s did report a history of dark urine prior to admission. However in the setting of a traumatic Jones catheter placement the current hematuria could be expected. However, will obtain renal ultrasound and if any evidence of urinary tract injury, will get stat urology consult prior to starting anticoagulation * Follow-up creatinine kinase 3. Gait instability * Patient complains of baseline gait that sounds like possible lumbar spinal stenosis * Will defer any imaging at this time, follow-up post hip surgery with physical therapy recommendations * Follow-up B12, vitamin D levels and supplement as needed 4. Itchy eyes * No evidence of conjunctivitis or infection at this time * Artificial tears for symptom control 5. Constipation * Bowel regimen with senna and Colace 6. Hypertension * Holding current dose of amlodipine and GEOVANY inhibitor. We'll restart as blood pressure tolerates post procedure 7. Hypothyroidism * Continue with armour thyroid 60mg daily 8. DVT prophylaxis * At this time will defer ALPs and pharmacoligic anticoagulation in the setting of hip fracture * Post procedure recommendations per surgery team 9. Diet * NPO pending surgery. Restart diet postprocedure 10. CODE STATUS * Full code Problem List: 1. Fracture of femoral neck, right 2. Urinary outflow obstruction 3. Hematuria 4. Acute blood loss anemia 5. Hypotension 6. Hypertension 7. Hypothyroidism
--- NOTE | 2016-11-30 09:00 | NUR ---
Patient arrived to [facility] from at approx 0845 accompanied by RN and on front desk monitor- Pt is awake, alert and oriented x's 3, able to follow commands and answer questions appropriately. NSR on tele monitor, HR= 70-90's- BP on arrival 122/70- is currently received a 1L normal saline bolus for an SBP in the 80's prior to transfer. He currently denies chest pain. Radial pulses + and pedal pulses + but diminished. On 2L nc, lungs clear and diminished at the bases. O2 sat 99%. Abodmen is soft and non tender with + bowel sounds. Pt denies nausea or vomiting. A regular diet was ordered for patient. [address] that was placed by Dr. Morel yesterday in the OR- Pt is receiving CBI and urine appears clear with a light pink color- Bag 11 finished infusing and bag 12 was hung- 800mls of fluid was emptied at this time and accurate I+O to start upon [facility] arrival since jones was emptied propr to transfer. R. hip dressing is CDI and Dr. Snider in to assess- Xray of hip to be done tomorrow. Heel protectors ordered for patient and abductor pillow remains in place. 1unit prbc currently infusing and patient is scheduled to receive 1 more. IV abx per order. Patient currently denies any pain. He was oriented to unit and call choudhary and was notified of transfer- Will continue to closely monitor patient.
--- NOTE | 2016-11-30 09:05 | NUR ---
Physical therapy: Per MD, pt transferred to ICU. Will cancel PT order due to downgrade in medical status. Patient will require new PT eval and treat orders when medically stable. Thank you.
--- NOTE | 2016-11-30 09:46 | Cons- CRCU ---
General Information and HPI Allergies/Medications Allergies: Coded Allergies: fenofibrate (From TRICOR) (UNKNOWN 11/29/16) levothyroxine sodium (From SYNTHROID) (HIVES 11/29/16) Home Med List: Amlodipine Besylate 5 MG TABLET 1 TAB PO DAILY HTN (Reported) Lisinopril 2.5 MG TABLET 1 TAB PO DAILY HTN (Reported) Thyroid,Pork ([place] Thyroid) 60 MG TABLET 1 TAB PO DAILY THYROID (Reported) Past History Travel History Traveled to [place] past 21 day No Medical History Blood Transfusion Hx: No Neurological: NONE EENT: NONE Cardiovascular: hypertension Respiratory: NONE Gastrointestinal: NONE Hepatic: NONE Renal: NONE Musculoskeletal: NONE Psychiatric: NONE Endocrine: hypothyroidism Blood Disorders: NONE Cancer(s): NONE 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 Ambulation: cane, walker Assessment/Plan Consult Acknowledgment - Thank you for your consult request.
--- NOTE | 2016-11-30 09:54 | PN- Urology ---
Surgical Brief Attending Note Brief Attending Note: Pt AOx3. Pain well controlled: with post obstructive diuresis and decompression hematuria-required fluid resucitation and PRBC. CBI clear today. abd soft. No CVAT. Plan: continue CBI today. Pt is to go home with jones intermediate.
--- NOTE | 2016-11-30 10:04 | Cons- CRCU ---
ROMEO PUCKETT 11/30/16 1003: General Information and HPI Consulting Request Source of Information: patient, family, old records Exam Limitations: no limitations History of Present Illness: Mr Lockwood is a 76-year-old gentleman with a PMH of HTN, hypothyroidism, BPH. Status post s/p cystoscopy with replacement of Jones catheter due to incorrect placement of the Jones catheter in his prostatic and adjacent proximal urethra in the ED as the patient to take him to the OR to repair his fracture. Status post Right hip hemiarthroplasty due to Right femoral neck fracture that was done yesterday. Overnight the patient had low blood pressure 80/40 with desaturation to 88 on 1 L of nasal cannula oxygen. His antibiotic was changed from ceftriaxone to Unasyn due to suspicions of aspiration pneumonia as the chest x- ray showed new opacity at the left lung base. In the molder machine patient was transferred to the ICU due to low blood pressure and his antibiotic was changed to be ceftazidime and IV vancomycin as broad-spectrum coverage. Patient doesn't have any active complaint, he is doing fine with the current pain management. Patient received 1 packed RBCs and 1 L of normal saline bolus. Patient deny any current fever, chills, cough, chest pain, difficulty breathing, palpitation, abdominal pain, nausea, vomiting. Latest echocardiogram was done 2004 report cannot be viewed. Allergies/Medications Allergies: Coded Allergies: fenofibrate (From TRICOR) (UNKNOWN 11/29/16) levothyroxine sodium (From SYNTHROID) (HIVES 11/29/16) Home Med List: Amlodipine Besylate 5 MG TABLET 1 TAB PO DAILY HTN (Reported) Lisinopril 2.5 MG TABLET 1 TAB PO DAILY HTN (Reported) Thyroid,Pork ([place] Thyroid) 60 MG TABLET 1 TAB PO DAILY THYROID (Reported) Review of Systems Review of Systems Constitutional: Reports: see HPI. Cardiovascular: Reports: see HPI. Respiratory: Reports: see HPI. GI: Reports: see HPI. Genitourinary: Reports: see HPI. 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 Ambulation: cane, walker Exam & Diagnostic Data Last 24 Hrs of Vital Signs/I&O Vital Signs Date Time Temp Pulse Resp B/P Pulse O2 O2 Flow FiO2 Ox Delivery Rate 11/30 1200 99 Nasal 2.0L Cannula 11/30 0900 99 Nasal 2.0L Cannula 11/30 0900 98.7 77 20 104/62 99 Nasal 2.0L Cannula 11/30 0800 96 Nasal 2.0L Cannula 11/30 0635 99.1 74 18 92/40 94 Nasal 1.0L Cannula 11/30 0223 97.2 74 18 100/56 97 Nasal Cannula 11/30 0115 97.0 72 16 104/38 93 Nasal 4.0L Cannula 11/30 0000 93 Nasal 4.0L Cannula 11/30 0000 64 16 96/38 94 Nasal 4.0L Cannula 11/29 2315 96.8 57 16 80/30 93 Nasal 4.0L Cannula 11/29 1622 98.3 74 20 124/60 94 Room Air 11/29 1450 98.1 81 20 142/88 98 Intake & Output 11/30 1600 11/30 0800 11/30 0000 Intake Total 3700 0 Output Total 2900 100 Balance 800 -100 Intake, IV 3600 0 Intake, Oral 100 0 Number 0 Bowel Movements Output, Urine 2900 100 Physical Exam General Appearance: well developed/nourished, no apparent distress, comfortable, jones cath with pink to clear. Head: atraumatic Neck: normal inspection, supple Respiratory: normal breath sounds, chest non-tender Cardiovascular: regular rate/rhythm Peripheral Pulses: 2+ radial (R), 2+ radial (L) Gastrointestinal: normal bowel sounds, soft, non-tender Extremities: no edema Cranial Nerves: normal hearing, normal speech, PERRL Last 48 Hrs of Labs/Julio: Laboratory Tests 11/30/16 0600: Creatine Kinase Cancelled, CBC w Diff Cancelled, WBC Cancelled, RBC Cancelled, Hgb Cancelled, Hct Cancelled, MCV Cancelled, MCH Cancelled, RDW Cancelled, Plt Count Cancelled, MPV Cancelled, PUBS MCHC Cancelled 11/30/16 0450: Lactic Acid 1.6 11/30/16 0450: Anion Gap 4 L, Estimated GFR > 60, BUN/Creatinine Ratio 24.0, Creatine Kinase 691 H, Troponin I < 0.01, Cortisol AM Sample 18.3, CBC w Diff NO MAN DIFF REQ, RBC 2.17 L, MCV 98.4 H, MCH 32.4 H, RDW 15.4 H, MPV 8.1, Gran % 79.1 H, Lymphocytes % 8.6 L, Monocytes % 12.2 H, Eosinophils % 0, Basophils % 0.1, Absolute Granulocytes 6.5, Absolute Lymphocytes 0.7 L, Absolute Monocytes 1.0 H, Absolute Eosinophils 0, Absolute Basophils 0, PUBS MCHC 32.9 L 11/30/16 0200: Lactic Acid 1.6 11/29/16 2350: pH 7.43, pCO2 33 L, pO2 151 H, HCO3 22, ABG O2 Sat (Measured) 98.0, P-50 (Temp Corrected) N, Carboxyhemoglobin 0.3 L, O2 Concentration % 4L, O2 Delivery Method N/C, Phlebotomy Draw Site RIGHT RADIAL 11/29/16 2310: Anion Gap 5, Estimated GFR > 60, BUN/Creatinine Ratio 24.5, Troponin I < 0.01 11/29/16 2220: CBC w Diff NO MAN DIFF REQ, RBC 3.05 L, MCV 97.7 H, MCH 32.8 H, RDW 14.9 H, MPV 8.3, Gran % 79.4 H, Lymphocytes % 6.0 L, Monocytes % 14.3 H, Eosinophils % 0.1, Basophils % 0.2, Absolute Granulocytes 11.4 H, Absolute Lymphocytes 0.9 L, Absolute Monocytes 2.1 H, Absolute Eosinophils 0, Absolute Basophils 0, PUBS MCHC 33.6 11/29/16 2213: CBC w Diff Cancelled, WBC Cancelled, RBC Cancelled, Hgb Cancelled, Hct Cancelled , MCV Cancelled, MCH Cancelled, RDW Cancelled, Plt Count Cancelled, MPV Cancelled, PUBS MCHC Cancelled 11/29/16 1158: Creatine Kinase 277 H, PT 12.5, INR 1.19 H 11/29/16 0545: Urine Color BLDY H, Urine Clarity TURBD H, Urine pH 8.0, Ur Specific [place] 1.025, Urine Protein >=300 H, Urine Ketones NEG, Urine Nitrite POS H, Urine Bilirubin NEG@ICTO, Urine Urobilinogen 0.2, Ur Leukocyte Esterase TRACE H, Ur Microscopic SEDIMENT EXAMINED, Urine RBC PACKD H, Urine Hemoglobin LARGE H, Urine Glucose 100 H 11/29/16 0358: Anion Gap 9, Estimated GFR > 60, BUN/Creatinine Ratio 27.0 H, Glucose 113 H, Calcium 9.3, Total Bilirubin 0.7, AST 31, ALT 30, Alkaline Phosphatase 86, Troponin I < 0.01, Total Protein 6.6, Albumin 3.7, Globulin 2.9, Albumin/ Globulin Ratio 1.3, Vitamin B12 499, 25-OH Vitamin D Total 21.1 L, Folate > 20.0 H, TSH 1.990, Free T4 0.64 L, CBC w Diff NO MAN DIFF REQ, RBC 3.47 L, MCV 97.0 H, MCH 32.8 H, RDW 15.2 H, MPV 7.7, Gran % 82.7 H, Lymphocytes % 10.1 L, Monocytes % 6.7, Eosinophils % 0.1, Basophils % 0.4, Absolute Granulocytes 6.0, Absolute Lymphocytes 0.7 L, Absolute Monocytes 0.5, Absolute Eosinophils 0, Absolute Basophils 0, PUBS MCHC 33.9 Diagnostic Data CXR Results EXAMINATION: XR PORTABLE CHEST CLINICAL INFORMATION: Desaturation. Question aspiration. COMPARISON: Chest x-ray November 29, 2016. TECHNIQUE: Portable AP view of the chest was obtained. FINDINGS: Symmetric lung inflation. There is new opacity at the left lung base, most likely atelectasis though early aspiration or pneumonia could appear similar. Lungs are otherwise clear. Central vascular congestion without overt edema. There is no pneumothorax. No pleural effusions. Cardiac silhouette size is normal. No acute osseous findings. IMPRESSION: There is new opacity at the left lung base, most likely atelectasis though early aspiration or pneumonia could appear similar. Other Results EXAMINATION: CT ABDOMEN AND PELVIS WITHOUT CONTRAST IMPRESSION: 1. Mild fullness of both renal collecting systems and both ureters is present with moderately enlarged prostate which is protruding into the urinary bladder. A Jones's catheter is localized within the prostatic gland slightly to the right of the midline and needs to be repositioned. 2. The sonographic suspected large cystic mass appeared to be markedly distended urinary bladder which is seen extending above the level of the umbilicus. There is suggestion of nonspecific focal soft tissue thickening identified within the base, lower posterior wall of the urinary bladder with thin septation which presumably represents urinary bladder wall thickening and superimposed diverticula. Following repositioning of the Jones's catheter, a followup limited pelvic ultrasound to document collapse of the distended urinary bladder, thus confirming the cystic structure to be the urinary bladder is recommended. The focal soft tissue prominence within the urinary bladder may represent focal cystitis and/or other pathology including neoplasm. Followup direct visualization/cystoscopy may be considered if clinically appropriate for further clarification. EXAM TYPE: RAD - XRY-KIDNEYS, URETERS, BLADDER IMPRESSION: 1. Single spot radiograph obtained at the time of the procedure shows presence of radiopaque contrast projecting in the region of the prostatic and adjacent proximal urethra. 2. Curvilinear contrast is also noted projecting within the pelvis, may represent intraluminal or extraluminal contrast, not accurately localized. Assessment/Plan Impression/Plan: Mr Lockwood is a 76-year-old gentleman with a PMH of HTN, hypothyroidism, BPH. Transfer to ICU due to the following problem: 1. Right femoral neck fracture status post hemiarthroplasty 2. Hemorrhagic cystitis due to post obstruction diuresis and decompression hematuria 3. Acute blood loss anemia 4. Hypotension most likely secondary to post obstruction diuresis/acute anemia 5. Questionable aspiration pneumonia that could be most likely status post anesthesia. Plan: -Continuous blood pressure monitoring -Aspiration precaution, keep head elevated. -We'll follow orthopedic recommendations -We'll continue IV fluid according to the urine output, will use normal saline -Continue blood product transfusion, monitor H&H every 8 hour, keep H&H above 8 heg. -Hold off or the patient antihypertensive medication for now -Continue bladder irrigation as recommended by urologist. -As recommended by learning development specialist, echocardiogram to be obtained. -serial troponin and EKG, first set was negative. -We'll continue broad-spectrum antibiotic and will narrow accordingly. -We will follow blood and urine culture. -We'll order chest x-ray for further evaluation and to assess as the patient will receive aggressive fluid resuscitation to contain his blood pressure. -ICU bundle and CBC in the morning for evaluation -Continue current pain pathway -Regular diet -DVT prophylaxis:Alps -Full code Problem List: 1. Acute blood loss anemia 2. Hematuria 3. Hypotension 4. Fracture of femoral neck, right 5. Urinary outflow obstruction Consult Acknowledgment - Thank you for your consult request. PRASANTH DA SILVA MD 11/30/16 1032: General Information and HPI Consulting Request Date of Consult: 11/30/16 Requested By: Dr. Nj Reason for Consult: acute blood loss anemia, hypotension Allergies/Medications Current Medications: Current Medications Sig/Carlos Start time Last Medication Dose Route Stop Time Status Admin Acetaminophen 650 MG Q6P PRN 11/29 214 AC PO Acetaminophen 1,000 MG .STK-MED ONE 11/29 1751 DC IV 11/29 175 Acetaminophen 650 MG Q6P PRN 11/29 1100 DC PO Amlodipine Besylate 5 MG DAILY 11/30 1000 CAN PO Ampicillin Sodium/ 3,000 MG Q6H 11/30 0200 DC 11/30 Sulbactam Sodium IV 0919 Sodium Chloride 100 ML Artificial Tears 2 GTT 4 TIMES/DAY 11/29 2200 AC 11/30 OPH 0922 Artificial Tears 2 GTT 4 TIMES/DAY 11/29 1106 DC 11/29 OPH 1847 Ceftazidime 1,000 MG IQ8 11/30 1600 AC IV Ceftriaxone Sodium 1,000 MG AT BEDTIME 11/29 2315 DC 11/30 IV 0031 Docusate Sodium 100 MG BID PRN 11/29 2144 AC PO Docusate Sodium 100 MG BID PRN 11/29 1230 DC PO Enoxaparin Sodium 40 MG DAILY 11/30 1000 DC SC Enoxaparin Sodium 40 MG DAILY 11/30 1000 CAN SC Fentanyl Citrate 250 MCG .STK-MED ONE 11/29 1751 DC IM 11/29 175 Hydromorphone HCl 2 MG .STK-MED ONE 11/29 1751 DC IM 11/29 175 Lisinopril 2.5 MG DAILY 11/30 1000 CAN PO Morphine Sulfate 2 MG Q4P PRN 11/29 214 AC 11/30 IV 0425 Morphine Sulfate 2 MG Q4P PRN 11/29 1100 DC 11/29 IV 1215 Oxycodone/ 1 TAB Q6P PRN 11/29 2144 AC 11/30 Acetaminophen PO 0632 Oxycodone/ 1 TAB Q6P PRN 11/29 1100 DC Acetaminophen PO Senna 187 MG AT BEDTIME NEED.. 11/29 2144 AC PO Senna 187 MG AT BEDTIME PRN 11/29 1230 DC PO Sodium Chloride 1,000 ML Q10H 11/30 0145 AC 11/30 IV 0327 Sodium Chloride 500 ML BOLUS ONE 11/30 0045 DC 11/30 IV 11/30 0144 0142 Sodium Chloride 1,000 ML BOLUS ONE 11/30 0030 DC 11/30 IV 11/30 0129 0030 Sodium Chloride 1,000 ML BOLUS ONE 11/29 2330 DC 11/29 IV 11/30 0029 2330 Sodium Chloride 1,000 ML Q13H 11/29 2130 CAN IV Sodium Chloride 1,000 ML Q13H 11/29 1015 DC 11/29 IV 11/29 1814 1120 Thyroid 1 GR DAILY AC 11/30 0700 AC 11/30 PO 0617 Vancomycin HCl 1,000 MG Q12H 11/30 0830 AC Dextrose/Water 250 ML IV Assessment/Plan Other Findings/Comments: Prasanth Montero M.D. have examined this patient, reviewed available EMR data, personally reviewed images, discussed with resident/PA/EQUITY TRADER, discussed management plan with housestaff and nursing staff, discussed managment plan all of healthcare providers, discussed management plan with patient and/or family, agreed with resident/PA/EQUITY TRADER. The past history and parts of the chart have been autopopulated. Impression 76 year old man - post obstructive diuresis and decompression hematuria (hemorrhagic cystitis) - acute blood loss anemia secondary to above - left hip fracture s/p left hemiarthroplasty 11/29/16 - left lung opacity likely atelectasis, ?aspiration Plan - orthopedic and urology consultations are reviewed and appreciated - continue CBI as recommended - jones management is strictly per urology - blood transfusion ongoing (2 units) - cbc q8h - monitor hemodynamics - monitor ins/outs, electrolytes - f/u ECHO - DVT prophylaxis with ALPS (Lovenox was stopped this am) TTS 40 min Consult Acknowledgment - Thank you for your consult request.
--- NOTE | 2016-11-30 10:30 | NUR ---
At 1000 pts BP noted to be 86/[address] Coy notified and an additonal 1L normal saline bolus given. At this time BP 98/54- pt continues to deny pain. Will continue to closely monitor patient.
--- NOTE | 2016-11-30 10:59 | Operative Report ---
Operative/Inv Procedure Report Surgery Date: 11/29/16 Name of Procedure: Right hip hemiarthroplasty Pre-Operative Diagnosis: Right femoral neck fracture Post-Operative Diagnosis: Same Estimated Blood Loss: scant (250 cc) Surgeon/Wall Scraper: geovany álvarez Anesthesia: general endotracheal tube IV Fluids: See anesthesia record Implants: Striker accolade 2 fracture stem, 55 unipolar endoprosthetic head standard neck length Drains: None Specimens: Right femoral head, right greater trochanter Complications: None Condition: Stable Operative Indication: Patient is a 76-year-old male who has had right hip pain for 2 weeks. He'll call at that point. He's been walking on the hip. The pain became surgery should he presented emergent records from the hospital Thursday morning. X-rays revealed a displaced femoral neck fracture. Once he was medically optimized and cleared he was indicated for right hip hemiarthroplasty. Risks and benefits of the procedure schedule patient detail. Operative/Procedure Note Note: Once informed consent was obtained and a crack on the left side the patient brought to the. Once the urology procedure had been completed the patient was placed in a left lateral decubitus position on the beanbag with an axillary roll in place and all bony prominences well-padded. The right lower 70 was prepped and draped in the usual sterile fashion. To begin the procedure a standard incision was made for posterior approach to the hip. Sharp dissection was carried down to skin and subcutaneous tissue. The fascia was incised. The gluteus ezequiel fibers were bluntly dissected. Trauma retractor was placed. Fat was swept off the short external rotators with care to identify and protect the sciatic nerve. The piriformis was released from its insertion and tagged for later repair. Is Performed. Femoral Neck Fracture Was Easily Identified and the Femoral Head Was Removed with a Corkscrew. The Femoral Head Was Sized to Be a Size 55 Head. This Was Trialed. Attention Was Then Turned to the Femur. A Femoral Neck Cut Was Made to Freshen the Fracture Site. This Was Done Partially 1 Fingerbreadth above the Lesser Trochanter. Box Cut Osteotome Was Then Used throughout the Proximal Femoral Neck and Remove Lateral Femoral Neck. A Starting Reamer Was Then Used To Open up the Femoral Canal and Then We Sequentially Broached up to a Size 5 Toñito Accolade 2 Broach. This Was Left in Place. Trial Reduction Is Done with a Standard Neck Length and a 55 Head. The Hip Was Relocated and Found to Be Stable through Range Of Motion. The Hip Was Dislocated and the Prosthesis Was Removed. The Femoral Canal Was Pulse Lavaged. Cement Was Mixed on the Back Table and a [place]ñito Accolade 2 Fracture Stem Was Opened with a Centralizer Placed. A Cement Plug Was Placed and the Cement Was Placed down the Canal. The Fracture Stem Was then cemented in place. Once the cement hardened a trial was done again in the 55 mm head and standard neck length. The hip was stable in 90 of flexion with 30 of internal rotation and 30 of adduction. The hip was redislocated and the final unipolar head was placed onto the stem. Hip was reduced. The wound was pulse lavaged. The piriformis and the capsule repaired back to drill holes for the greater trochanter. The fascia was closed with a #1 running Maxon suture. Subcutaneous tissues closed with #1 Vicryl and 2-0 Vicryl and oh sutures. The skin was closed with arleen. Sterile dressing was applied and the patient was awakened and taken to recovery room.
--- NOTE | 2016-11-30 12:53 | Cons- Cardiology ---
General Information and HPI Consulting Request Date of Consult: 11/30/16 Requested By: JANNET KERN MD Reason for Consult: Postoperative hypotension with blood loss anemia. Source of Information: patient, family, old records Exam Limitations: no limitations History of Present Illness: Mr. Dayton Lockwood is a 76-year-old male with a long-standing history of hypertension, previous transient ischemic attack, previous dyslipidemia, hypothyroidism, and recent events issues with his balance and falls who presented to the emergency department via ambulance on 11/29/2016 with complaints of right hip pain and weakness following a fall on 11/19/2016 during which he sustained a fracture of his right femoral neck. He also related urological symptoms of nocturia, frequency, "dark urine", etc. and had a difficult Grimm catheter placement in the emergency department with the subsequent discovery of the catheter penetrating the prostate gland with significant hematuria and anemia. He was taken to the OR on 11/29/2016 where he underwent successful right hip hemiarthroplasty by orthopedic surgery (Shun Lovelace M.D., PhD), however postoperatively he was found to be hypotensive and anemic prompting transfer to the ICU. He is presently visiting with his , receiving packed red blood cells, and is without complaints. He specifically denies any chest discomfort, palpitations, shortness of breath, etc. He has no history of coronary, valvular, dysrhythmic/conduction disease or cardiomyopathy. He denies any history of diabetes mellitus, tobacco use, or family history for premature atherosclerotic disease. Allergies/Medications Allergies: Coded Allergies: fenofibrate (From TRICOR) (UNKNOWN 11/29/16) levothyroxine sodium (From SYNTHROID) (HIVES 11/29/16) Home Med List: Amlodipine Besylate 5 MG TABLET 1 TAB PO DAILY HTN (Reported) Lisinopril 2.5 MG TABLET 1 TAB PO DAILY HTN (Reported) Thyroid,Pork ([place] Thyroid) 60 MG TABLET 1 TAB PO DAILY THYROID (Reported) Review of Systems Review of Systems: A 14 point system review was obtained and was noncontributory, as above, except for the fact that he has chronic constipation, tendency to bleed, and obsessive- compulsive disorder. Past History Travel History Traveled to [place] past 21 day No Medical History Blood Transfusion Hx: No Neurological: TIA EENT: NONE Cardiovascular: hypertension, hyperlipidemia Respiratory: NONE Gastrointestinal: NONE Hepatic: NONE Renal: NONE Musculoskeletal: NONE Psychiatric: obsessive compulsive disorder. 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 Ambulation: cane, walker Exam & Diagnostic Data Vital Signs and I&O Vital Signs Date Time Temp Pulse Resp B/P Pulse O2 O2 Flow FiO2 Ox Delivery Rate 11/30 0900 98.7 77 20 104/62 99 Nasal 2.0L Cannula 11/30 0800 96 Nasal 2.0L Cannula 11/30 0635 99.1 74 18 92/40 94 Nasal 1.0L Cannula 11/30 0223 97.2 74 18 100/56 97 Nasal Cannula 11/30 0115 97.0 72 16 104/38 93 Nasal 4.0L Cannula 11/30 0000 93 Nasal 4.0L Cannula 11/30 0000 64 16 96/38 94 Nasal 4.0L Cannula 11/29 2315 96.8 57 16 80/30 93 Nasal 4.0L Cannula 11/29 1622 98.3 74 20 124/60 94 Room Air 11/29 1450 98.1 81 20 142/88 98 Intake & Output 11/30 1600 11/30 0800 11/30 0000 11/29 1600 11/29 0700 11/29 0000 Intake Total 3700 0 375 Output Total 2900 100 50 Balance 800 -100 375 -50 Intake, IV 3600 0 375 Intake, Oral 100 0 Number 0 Bowel Movements Output, Urine 2900 100 50 Patient 200 lb 200 lb Weight Physical Exam: Pale-appearing elderly male in no acute distress with nasal oxygen in place. Baseline vital signs: See above. HEENT: Normocephalic, atraumatic, EOMI, slightly dry mucous membranes. Neck: No JVD, no bruits. Lungs: Clear to auscultation. Heart: S1, S2 with no murmur, gallop, or rub appreciated. OR fifth ICS at MCL. Abdomen: Soft, nontender, positive bowel sounds. Extremities: No edema. Assessment/Plan Assessment/Plan Mr. Lockwood is an elderly male who presented 9 days after a fall during which she sustained a right femoral fracture for which he underwent right total hip arthroplasty yesterday, and who after returning to the general medical floor was found to be hypotensive and anemic prompting transfer to the ICU for hypovolemic shock. His initial course was complicated by a difficult placement of a Grimm catheter that penetrated the prostate and it was felt that the postobstructive diuresis and blood loss anemia from the penetrated prostate and the orthopedic procedure were responsible for the hypovolemia/blood loss that necessitated intensive care. Fortunately, he is now asymptomatic, hemodynamically improved after volume resuscitation with packed red blood cells, etc., has negative troponins, and no worrisome acute electrocardiographic changes. Recommendations: * Continue ICU monitoring, follow-up troponins, follow-up electrocardiograms. * Scheduled for echocardiogram to assess left ventricular function. * Continue to follow-up on urology, critical care, and orthopedic recommendations. * Continue mechanical DVT prophylaxis (ALPS). Consult Acknowledgment - Thank you for your consult request. - monitor ins/outs, electrolytes - f/u ECHO - DVT prophylaxis with ALPS (Lovenox was stopped this am) Consult Acknowledgment - Thank you for your consult request.
--- NOTE | 2016-11-30 14:20 | ECHOCARDIOGRAM REPORT ---
JESSICA AMAYA Age: 76 : 1940 Gender: M Exam Date: 11/30/2016 09:42 Exam Location: [facility] Ht (in): 72 Wt (lb): 200 BSA: 2.16 BP: 92 / 40 Ordering Physician: GUANACO FROST MD Referring Physician: Melchor Dupont MD Technologist: Barby Valenzuela [facility] Room Number: 109 Indications: HYPOTENSION Rhythm: Sinus Technical Quality: Fair FINDINGS Left Ventricle Normal size left ventricle. Mild concentric left ventricular hypertrophy. No obvious regional wall motion abnormalities. Normal left ventricular ejection fraction visually estimated at > 65%. "pseudonormal" filling pattern of the left ventricle for age (stage 2 diastolic dysfunction). Right Ventricle Mild right ventricular dilatation. Right Atrium Normal right atrial size. Left Atrium Normal left atrial size. Mitral Valve Mild mitral annular calcification. Mitral valve mildly thickened. No mitral regurgitation. Aortic Valve Trileaflet aortic valve. Mild aortic sclerosis. No aortic valve stenosis. Mild aortic regurgitation. Tricuspid Valve Structurally normal tricuspid valve. Trace tricuspid regurgitation. No evidence of pulmonary hypertension. Right ventricular systolic pressure estimated at 31 mmHg. Pulmonic Valve Pulmonic valve not well visualized, grossly normal. Mild pulmonic regurgitation. Pericardium No pericardial effusion. Great Vessels Normal size aortic root. Mildly dilated inferior vena cava. CONCLUSIONS Normal size left ventricle. Mild concentric left ventricular hypertrophy. No obvious regional wall motion abnormalities. Normal left ventricular ejection fraction visually estimated at > 65%. "pseudonormal" filling pattern of the left ventricle for age (stage 2 diastolic dysfunction). Mild right ventricular dilatation. Normal atrial size. Mild aortic regurgitation. Trace tricuspid regurgitation. No evidence of pulmonary hypertension. Mild pulmonic regurgitation. Mildly dilated inferior vena cava. Melchor Dupont M.D. (Electronically Signed) Final Date: 30 November 2016 14:20 MEASUREMENTS (Male / Female) Normal Values 2D ECHO LV Diastolic Diameter PLAX 4.8 cm 4.2 - 5.9 / 3.9 - 5.3 cm LV Systolic Diameter PLAX 2.8 cm 2.1 - 4.0 cm LV Fractional Shortening PLAX 41.7 % 25 - 46 % LV Ejection Fraction 2D Teich 72.5 % IVS Diastolic Thickness 1.3 cm LVPW Diastolic Thickness 1.3 cm LV Relative Wall Thickness 0.5 RV Internal Dim ED PLAX 3.8 cm 1.9 - 3.8 cm LVOT Diameter 2.2 cm Aortic Root Diameter 3.5 cm LA Systolic Diameter LX 3.5 cm 3.0 - 4.0 / 2.7 - 3.8 cm LA Volume 36.0 cm 18 - 58 / 22 - 52 cm DOPPLER AV Peak Velocity 165.0 cm/s AV Peak Gradient 10.9 mmHg AV Mean Velocity 118.0 cm/s AV Mean Gradient 6.0 mmHg AV Velocity Time Integral 34.7 cm LVOT Peak Velocity 117.0 cm/s LVOT Peak Gradient 5.5 mmHg LVOT Mean Velocity 75.0 cm/s LVOT Mean Gradient 3.0 mmHg LVOT Velocity Time Integral 21.8 cm LVOT Stroke Volume 82.9 cm AV Area Cont Eq vti 2.4 cm AV Area Cont Eq pk 2.7 cm MV Peak Velocity 106.0 cm/s MV Peak Gradient 4.5 mmHg MV Mean Velocity 63.9 cm/s MV Mean Gradient 2.0 mmHg Mitral E Point Velocity 93.3 cm/s Mitral A Point Velocity 90.3 cm/s Mitral E to A Ratio 1.0 MV PHT Velocity 106.0 cm/s MV Deceleration [place] 348.0 cm/s MV Pressure Half Time 91.4 ms MV Area PHT 2.4 cm MV Deceleration Time 259.0 ms TR Peak Velocity 256.0 cm/s TR Peak Gradient 26.2 mmHg Right Atrial Pressure 5.0 mmHg Pulmonary Artery Systolic Pressu 31.2 mmHg Right Ventricular Systolic Press 31.2 mmHg PV Peak Velocity 104.0 cm/s PV Peak Gradient 4.3 mmHg PV Mean Velocity 66.5 cm/s PV Mean Gradient 2.0 mmHg PV Velocity Time Integral 19.5 cm LV E' Lateral Velocity 12.0 cm/s Mitral E to LV E' Lateral Ratio 7.8 LV E' Septal Velocity 8.6 cm/s Mitral E to LV E' Septal Ratio 10.8
[2016-11-30 15:48] LABS: ABSOLUTE BASOPHIL COUNT 0 /CUMM (0.0-0.2); ABSOLUTE EOSINOPHIL COUNT 0 /CUMM (0.0-0.7); ABSOLUTE GRANULOCYTE CT 4.4 /CUMM (1.4-6.5); ABSOLUTE LYMPH COUNT 0.8 /CUMM (1.2-3.4); ABSOLUTE MONOCYTE COUNT 1.1 /CUMM (0.10-0.60); BASOPHIL % 0.7 % (0.0-2.0); EOSINOPHIL % 0.7 % (0-5); GRANULOCYTE % 69.4 % (42.2-75.2); HEMATOCRIT 25.3 % (42-52); MEAN CORPUSCULAR HGB 31.6 PG (27.0-31.0); MEAN CORPUSCULAR HGB CONC 33.7 G/DL (33.0-37.0); MEAN CORPUSCULAR VOLUME 93.9 FL (80.0-94.0); MEAN PLATELET VOLUME 7.4 FL (7.4-10.4); PLATELET COUNT 131 /CUMM (130-400); RBC DISTRIBUTION WIDTH 18.2 % (11.5-14.5); RED BLOOD CELL CT 2.69 /CUMM (4.70-6.10); WHITE BLOOD CELL COUNT 6.4 /CUMM (4.8-10.8)
[2016-12-01 01:17] LABS: ABSOLUTE BASOPHIL COUNT 0 /CUMM (0.0-0.2); ABSOLUTE EOSINOPHIL COUNT 0 /CUMM (0.0-0.7); ABSOLUTE GRANULOCYTE CT 4.4 /CUMM (1.4-6.5); ABSOLUTE LYMPH COUNT 0.8 /CUMM (1.2-3.4); BASOPHIL % 0.6 % (0.0-2.0); EOSINOPHIL % 0.7 % (0-5); GRANULOCYTE % 68.9 % (42.2-75.2); HEMATOCRIT 24.9 % (42-52); MEAN CORPUSCULAR HGB CONC 34.2 G/DL (33.0-37.0); MEAN CORPUSCULAR VOLUME 93.6 FL (80.0-94.0); MEAN PLATELET VOLUME 8.1 FL (7.4-10.4); PLATELET COUNT 125 /CUMM (130-400); RBC DISTRIBUTION WIDTH 17.8 % (11.5-14.5); RED BLOOD CELL CT 2.66 /CUMM (4.70-6.10); WHITE BLOOD CELL COUNT 6.3 /CUMM (4.8-10.8)
[2016-12-01 05:16] LABS: ABSOLUTE BASOPHIL COUNT 0.1 /CUMM (0.0-0.2); ABSOLUTE EOSINOPHIL COUNT 0 /CUMM (0.0-0.7); ABSOLUTE GRANULOCYTE CT 4.4 /CUMM (1.4-6.5); ABSOLUTE LYMPH COUNT 0.9 /CUMM (1.2-3.4); BASOPHIL % 0.8 % (0.0-2.0); EOSINOPHIL % 0.8 % (0-5); GRANULOCYTE % 68.5 % (42.2-75.2); HEMATOCRIT 25.7 % (42-52); MEAN CORPUSCULAR HGB 31.8 PG (27.0-31.0); MEAN CORPUSCULAR VOLUME 93.6 FL (80.0-94.0); MEAN PLATELET VOLUME 8.1 FL (7.4-10.4); PLATELET COUNT 124 /CUMM (130-400); RBC DISTRIBUTION WIDTH 17.8 % (11.5-14.5); RED BLOOD CELL CT 2.75 /CUMM (4.70-6.10); WHITE BLOOD CELL COUNT 6.5 /CUMM (4.8-10.8)
--- NOTE | 2016-12-01 06:03 | PN- Orthopedic ---
See Addendum Subjective Subjective: Patient was transferred to the ICU yesterday morning for hypotension. He received fluid boluses and 2 units of PRBCs. He has improved hemodynamically since then. Systolic blood pressure remains in the 120s and heart rate is in the 80s. Patient denies significant pain, but states that he feels somewhat "depressed." He was able to eat and drink yesterday. CBI continues to run and is clear. Objective Vital Signs and I&Os Vital Signs Date Time Temp Pulse Resp B/P Pulse O2 O2 Flow FiO2 Ox Delivery Rate 12/01 0000 96 Nasal 2.0L Cannula 11/30 2300 80 14 114/48 96 Nasal 2.0L Cannula 11/30 1600 96.9 78 18 116/62 99 Nasal 2.0L Cannula 11/30 1600 98 Nasal 2.0L Cannula 11/30 1200 99 Nasal 2.0L Cannula 11/30 0900 99 Nasal 2.0L Cannula 11/30 0900 98.7 77 20 104/62 99 Nasal 2.0L Cannula 11/30 0800 96 Nasal 2.0L Cannula 11/30 0635 99.1 74 18 92/40 94 Nasal 1.0L Cannula Intake & Output 12/01 0800 12/01 0000 11/30 1600 11/30 0800 11/30 0000 11/29 1600 Intake Total 1970 4050 3700 0 375 Output Total 589 969 2162 100 Balance 1170 3300 800 -100 375 Intake, Blood 700 Product Intake, IV 1970 3150 3600 0 375 Intake, Oral 200 100 0 Number 0 Bowel Movements Output, Urine 304 610 0131 100 Patient 200 lb Weight Physical Exam: Gen.: Patient is awake and alert. No acute distress. Extremities: The right hip dressing is clean, dry, and intact. There is edema of the thigh, as expected within postsurgical limits, but it is soft. No significant distal edema or calf tenderness. Feet are warm bilaterally. Strength of dorsiflexion and plantar flexion are 4-5. Assessment/Plan Assessment/Plan Patient is a 76-year-old male with a history of hypertension, hypothyroidism, and prostate enlargement who is now postoperative day #2 status post hemiarthroplasty of the right hip for fracture. He underwent a difficult Grimm catheter insertion, leading to hematuria and subsequent replacement of catheter by urology. CBI continues to run and is clear. Plan: -Pain control. -Plan for dressing change today. -Lovenox can be resumed for DVT prophylaxis if patient remains stable. Alps are in place. -CBI is clear. We will most likely discontinue today, but will defer to Dr. Morel. Keep Grimm in place upon discharge. -Antibiotics were changed to Ceftaz and Vanco. Follow-up cultures. -Medical management per primary team. -Consider transfer out of ICU.
[2016-12-01 07:00] VITALS: BP 138/63; BP 140/60
--- NOTE | 2016-12-01 07:19 | PN- Resident CRCU ---
Subjective HPI/CRCU Issues: No acute events overnight. Blood pressures improved and remained stable after receiving aggressive IVF resuscitation. Patient was continued on CBI overnight. Patient was seen and examined this morning. He feels good. His oral intake is good per nursing staff. He complains of generalized weakness and gait instability but this has been ongoing for several months. Urine in Grimm is clear yellow. Objective Vital Signs & I&O Last 8 Hrs of Vitals and I&O: Vital Signs Date Time Temp Pulse Resp B/P Pulse O2 O2 Flow FiO2 Ox Delivery Rate 12/01 1848 99.2 12/01 1746 98.3 80 16 130/70 95 Room Air 12/01 1600 100.4 87 20 132/67 96 Nasal 1.0L Cannula 12/01 0800 96 Nasal 2.0L Cannula 12/01 0700 99.5 88 12 140/60 98 Nasal 2.0L Cannula 12/01 0700 99.7 85 12 138/63 96 Nasal 2.0L Cannula 12/01 0000 96 Nasal 2.0L Cannula 11/30 2300 80 14 114/48 96 Nasal 2.0L Cannula Intake & Output 12/01 1600 Intake Total 1500 Output Total 850 Balance 650 Intake, IV 900 Intake, Oral 600 Output, Urine 850 Exam General Appearance: no apparent distress, alert, awake, comfortable Head: atraumatic, normal appearance Respiratory: lungs clear Cardiovascular: regular rate/rhythm, normal S1 and S2 Gastrointestinal: soft, non-tender, positive bowel sounds Extremities: no edema Skin: pallor Other Physical Findings: Grimm draining yellow urine, no hematuria noted Current Medications: Current Medications Sig/Carlos Start time Last Medication Dose Route Stop Time Status Admin Acetaminophen 650 MG Q6P PRN 11/29 214 AC 12/01 PO 1643 Artificial Tears 2 GTT 4 TIMES/DAY 11/29 2200 AC 12/01 OPH 1352 Ceftazidime 1,000 MG IQ8 11/30 1600 AC 12/01 IV 1645 Docusate Sodium 100 MG BID PRN 11/29 2144 AC PO Enoxaparin Sodium 40 MG DAILY@1400 12/01 1457 AC 12/01 SC 1722 Magnesium Oxide 400 MG ONE ONE 12/01 0730 DC 12/01 PO 12/01 0731 0810 Morphine Sulfate 2 MG Q4P PRN 11/295 AC 11/30 IV 0425 Oxycodone/ 1 TAB Q6P PRN 11/29 2144 AC 11/30 Acetaminophen PO 0632 Potassium Chloride 10 MEQ ONCE ONE 12/01 0730 DC 12/01 PO 12/01 0731 0810 Senna 187 MG AT BEDTIME NEED.. 11/29 2144 AC PO Sodium Chloride 1,000 ML Q10H 11/30 0145 DC 12/01 IV 0359 Thyroid 1 GR DAILY AC 11/30 0700 AC 12/01 PO 0654 Vancomycin HCl 1,000 MG Q12H 11/30 0830 AC 12/01 Dextrose/Water 250 ML IV 0842 Results Results: Laboratory Tests 12/01 12/01 0500 0055 Chemistry Sodium (137 - 145 mmol/L) 135 L Potassium (3.5 - 5.1 mmol/L) 3.9 Chloride (98 - 107 mmol/L) 108 H Carbon Dioxide (22 - 30 mmol/L) 26 Anion Gap (5 - 16) 1 L BUN (9 - 20 mg/dL) 15 Creatinine (0.7 - 1.2 mg/dL) 0.8 Estimated GFR (>60 ml/min) > 60 Glucose (65 - 99 mg/dL) 97 Calcium (8.4 - 10.2 mg/dL) 7.6 L Phosphorus (2.5 - 4.5 mg/dL) 2.0 L Magnesium (1.6 - 2.3 mg/dL) 1.7 Total Bilirubin (0.2 - 1.3 mg/dL) 0.8 AST (17 - 59 U/L) 42 ALT (21 - 72 U/L) 34 Albumin (3.5 - 5.0 g/dL) 2.1 L Hematology CBC w Diff NO MAN DIFF REQ NO MAN DIFF REQ WBC (4.8 - 10.8 /CUMM) 6.5 6.3 RBC (4.70 - 6.10 /CUMM) 2.75 L 2.66 L Hgb (14.0 - 18.0 G/DL) 8.7 L 8.5 L Hct (42 - 52 %) 25.7 L 24.9 L MCV (80.0 - 94.0 FL) 93.6 93.6 MCH (27.0 - 31.0 PG) 31.8 H 32.0 H RDW (11.5 - 14.5 %) 17.8 H 17.8 H Plt Count (130 - 400 /CUMM) 124 L 125 L MPV (7.4 - 10.4 FL) 8.1 8.1 Gran % (42.2 - 75.2 %) 68.5 68.9 Lymphocytes % (20.5 - 51.1 %) 14.0 L 13.4 L Monocytes % (1.7 - 9.3 %) 15.9 H 16.4 H Eosinophils % (0 - 5 %) 0.8 0.7 Basophils % (0.0 - 2.0 %) 0.8 0.6 Absolute Granulocytes (1.4 - 6.5 /CUMM) 4.4 4.4 Absolute Lymphocytes (1.2 - 3.4 /CUMM) 0.9 L 0.8 L Absolute Monocytes (0.10 - 0.60 /CUMM) 1.0 H 1.0 H Absolute Eosinophils (0.0 - 0.7 /CUMM) 0 0 Absolute Basophils (0.0 - 0.2 /CUMM) 0.1 0 PUBS MCHC (33.0 - 37.0 G/DL) 34.0 34.2 BCx (11/30/16): NGTD x2 UCx (11/30/16): NGTD CXR Findings: 1. Mild pulmonary venous congestion. No interstitial edema. 2. Opacity at the left lung base is slightly increased as compared to prior, most likely atelectasis. Pneumonia or trace effusion are possible. Impression/Plan Impression/Problem List Impression: 76 y/o M with PMHx of HTN, hypothyroidism and BPH who was admitted for fracture of R femoral neck s/p mechanical fall, POD #2 s/p R hip hemiarthroplasty. His hospital course was complicated by difficult Grimm catheter insertion with subsequent hematuria requiring cystoscopy with replacement of Grimm catheter and hypovolemic shock secondary to ABLA and post-obstructive diuresis. Problem List: 1. Acute blood loss anemia 2. Hypotension 3. Fracture of femoral neck, right 4. Hematuria 5. Hypovolemic shock Pain Ratin Tomorrow's Labs & Rationales: CBC to monitor H/H in the setting of ABLA BMP to monitor lytes and kidney function s/p hypovolemic shock Plan Respiratory: #Acute hypoxemic respiratory failure: Likely secondary to suspected aspiration pneumonia as patient desatted following surgery and developed a new left lung opacity. Currently respiratory failure has resolved. Patient is satting well on room air. * Provide supplemental oxygen as needed to keep SpO2 > 92%. Infectious Diseases: #Possible aspiraiton pneumonia: Spiked fevers to 100.4 this afternoon. Remains without leukocytosis. Started on broad spectrum antibiotics vancomycin and ceftazidime post-operatively yesterday. CXR today with persistent opacity at left lung base, increased from prior, most likely representing atelectasis, but pneumonia or trace effusion are possible. BCx and UCx from yesterday NGTD. * Continue ceftazidime 1 g IV Q8H and vancomycin 1 g IV Q12H. Cardiovascular: #Hypovolemic shock: [place] to be multifactorial secondary to post-obstruction diuresis and ABLA. Blood pressure has improved with aggressive IVF resuscitation and remains stable in the 130-140/60-70 range. * Cardiology following. Appreciate their recs. * Discontinue IVF. * Continue to monitor I/Os. * Downgrade to General Medicine. Hematology: #ABLA: 2/2 post-operative blood loss from R hip surgery as well as hematuria from difficult Grimm catheter replacement. S/p 2 units of pRBCs yesterday with improvement of H/H to 8.5/25.3. H/H continues to remain stable. * Continue to monitor H/H and platelets daily. Metabolic: Replete to K > 4 and Mg > 2 Alimentary: Regular Diet Neurological: AAO x 3. DVT/Prophylaxis: mechanical, pharmacological Code Status: Full Code Other: #Decompression hematuria: Secondary to difficult Grimm catheter placement. Currently urine is clear yellow without CBI. * Urology following. Appreciate their recs. * Start tamsulosin 0.4 mg PO QPM and Proscar 5 mg PO daily. * Discontinue CBI. * Keep Grimm on discharge. * Urology to attempt voiding trial after recovery from hip surgery. Will likely need TURP in the future if he fails VT. #R femoral neck fracture: POD #2 s/p R hip hemiarthroplasty. * Management per orthopedic surgery. * Resume Lovenox for DVT PPx. * Morphine 2 mg IV Q4H PRN for severe pain (scale 7-10), Percocet 1 tab PO Q6H PRN for moderate pain (scale 4-6) and Tylenol 650 mg PO Q6H PRN for mild pain ( scale 1-3). * Continue PT.
--- NOTE | 2016-12-01 08:13 | RADIOLOGY REPORT ---
EXAMINATION: XR HIP, RIGHT CLINICAL INFORMATION: Status post right hip replacement. COMPARISON: 11/29/2016 TECHNIQUE: AP view of the right hip. FINDINGS: Prosthetic components of the right hip hemiarthroplasty are appropriately aligned. No periprosthetic fracture. Gas from recent surgery is present in the surrounding soft tissues. Skin arleen are present laterally. The medial margin of the femoral head component is not fully included on this study. IMPRESSION: Status post right hip hemiarthroplasty without evidence of complications. The medial margin of the femoral head component is not fully included on this image.
--- NOTE | 2016-12-01 08:13 | RADIOLOGY REPORT ---
EXAMINATION: XR PORTABLE CHEST CLINICAL INFORMATION: Evaluate for volume overload. The patient has received a lot of fluids. COMPARISON: 11/29/2016 TECHNIQUE: Portable AP view of the chest was obtained. FINDINGS: Slightly increased airspace opacification is present at the left lung base, more noticeable medially. This may be due to atelectasis. Trace pleural effusion is possible. Right lung is clear. Cardiac and mediastinal contours are normal aside from the calcific atherosclerosis in the thoracic aorta. There is mild pulmonary venous congestion. No interstitial edema. IMPRESSION: 1. Mild pulmonary venous congestion. No interstitial edema. 2. Opacity at the left lung base is slightly increased as compared to prior, most likely atelectasis. Pneumonia or trace effusion are possible.
--- NOTE | 2016-12-01 10:28 | PN- CRCU ---
Subjective HPI/Critical Care Issues: pt seen and examined bp stable comfortable notes dizziness and gait instability prior to critical illness hgb stable no blood in jones Objective Current Medications: Current Medications Sig/Carlos Start time Last Medication Dose Route Stop Time Status Admin Acetaminophen 650 MG Q6P PRN 11/29 2144 AC PO Artificial Tears 2 GTT 4 TIMES/DAY 11/29 2200 AC 11/30 OPH 2305 Ceftazidime 1,000 MG IQ8 11/30 1600 AC 12/01 IV 0811 Docusate Sodium 100 MG BID PRN 11/29 2144 AC PO Magnesium Oxide 400 MG ONE ONE 12/01 0730 DC 12/01 PO 12/01 0731 0810 Morphine Sulfate 2 MG Q4P PRN 11/29 214 AC 11/30 IV 0425 Oxycodone/ 1 TAB Q6P PRN 11/29 2144 AC 11/30 Acetaminophen PO 0632 Potassium Chloride 10 MEQ ONCE ONE 12/01 0730 DC 12/01 PO 12/01 0731 0810 Senna 187 MG AT BEDTIME NEED.. 11/29 2144 PO Sodium Chloride 1,000 ML BOLUS ONE 11/30 1045 DC 11/30 IV 11/30 1144 1000 Sodium Chloride 1,000 ML Q10H 11/30 0145 AC 12/01 IV 0359 Thyroid 1 GR DAILY AC 11/30 0700 AC 12/01 PO 0654 Vancomycin HCl 1,000 MG Q12H 11/30 0830 AC 12/01 Dextrose/Water 250 ML IV 0842 Vital Signs & I&O Last 24 Hrs of Vitals and I&O: Vital Signs Date Time Temp Pulse Resp B/P Pulse O2 O2 Flow FiO2 Ox Delivery Rate 12/01 07 99.7 85 12 138/63 96 Nasal 2.0L Cannula 12/01 0000 96 Nasal 2.0L Cannula 11/30 2300 80 14 114/48 96 Nasal 2.0L Cannula 11/30 1600 96.9 78 18 116/62 99 Nasal 2.0L Cannula 11/30 1600 98 Nasal 2.0L Cannula 11/30 1200 99 Nasal 2.0L Cannula Intake & Output 12/01 1600 12/01 0800 12/01 0000 Intake Total 1850 1970 Output Total 1200 800 Balance 650 1170 Intake, IV 1400 1970 Intake, Oral 450 Number 0 Bowel Movements Output, Stool 0 Output, Urine 1200 800 Exam Other Physical Findings: gen awake and alert heent ncat cvs s1, s2 lungs ctab abd soft bs+ ext without edema jones catheter bag with shayy/yellowish fluid no blood Results Last 24 Hrs of Lab Results: Laboratory Tests 12/01/16 0500: Anion Gap 1 L, Estimated GFR > 60, Glucose 97, Calcium 7.6 L, Phosphorus 2.0 L, Magnesium 1.7, Total Bilirubin 0.8, AST 42, ALT 34, Albumin 2.1 L, CBC w Diff NO MAN DIFF REQ, RBC 2.75 L, MCV 93.6, MCH 31.8 H, RDW 17.8 H, MPV 8.1, Gran % 68.5, Lymphocytes % 14.0 L, Monocytes % 15.9 H, Eosinophils % 0.8, Basophils % 0.8, Absolute Granulocytes 4.4, Absolute Lymphocytes 0.9 L, Absolute Monocytes 1.0 H, Absolute Eosinophils 0, Absolute Basophils 0.1, PUBS MCHC 34.0 12/01/16 0055: CBC w Diff NO MAN DIFF REQ, RBC 2.66 L, MCV 93.6, MCH 32.0 H, RDW 17.8 H, MPV 8.1, Gran % 68.9, Lymphocytes % 13.4 L, Monocytes % 16.4 H, Eosinophils % 0.7, Basophils % 0.6, Absolute Granulocytes 4.4, Absolute Lymphocytes 0.8 L, Absolute Monocytes 1.0 H, Absolute Eosinophils 0, Absolute Basophils 0, PUBS MCHC 34.2 11/30/16 1535: Troponin I < 0.01, CBC w Diff NO MAN DIFF REQ, RBC 2.69 L, MCV 93.9, MCH 31.6 H, RDW 18.2 H, MPV 7.4, Gran % 69.4, Lymphocytes % 12.7 L, Monocytes % 16.5 H , Eosinophils % 0.7, Basophils % 0.7, Absolute Granulocytes 4.4, Absolute Lymphocytes 0.8 L, Absolute Monocytes 1.1 H, Absolute Eosinophils 0, Absolute Basophils 0, PUBS MCHC 33.7 Impression/Plan Impression/Plan Impression/Plan: Impression 76 year old man - post obstructive diuresis and decompression hematuria (hemorrhagic cystitis) - acute blood loss anemia secondary to above - left hip fracture s/p left hemiarthroplasty 11/29/16 - left lung opacity likely atelectasis, ?aspiration - diastolic dysfunction Plan - orthopedic and urology consultations are reviewed and appreciated - call urology to evaluate longevity of CBI and if it can be stopped - jones management is strictly per urology - cbc stable, monitor daily - monitor hemodynamics - monitor ins/outs, electrolytes - DVT prophylaxis with ALPS (Lovenox was stopped this am) TTS 35 min DG gm if okay with cardiology
--- NOTE | 2016-12-01 11:36 | PN- Cardiology ---
Subjective Subjective: No complaints and denies any chest discomfort, palpitations, shortness of breath , etc. Objective Vital Signs and I&Os Vital Signs Date Time Temp Pulse Resp B/P Pulse O2 O2 Flow FiO2 Ox Delivery Rate 12/01 0700 99.7 85 12 138/63 96 Nasal 2.0L Cannula 12/01 0000 96 Nasal 2.0L Cannula 11/30 2300 80 14 114/48 96 Nasal 2.0L Cannula 11/30 1600 96.9 78 18 116/62 99 Nasal 2.0L Cannula 11/30 1600 98 Nasal 2.0L Cannula 11/30 1200 99 Nasal 2.0L Cannula Intake & Output 12/01 1600 12/01 0800 12/01 0000 11/30 1600 11/30 0800 11/30 0000 Intake Total 1850 1970 4050 3700 0 Output Total 1200 795 613 1207 100 Balance 650 1170 3300 800 -100 Intake, Blood 700 Product Intake, IV 1400 1970 3150 3600 0 Intake, Oral 450 200 100 0 Number 0 0 Bowel Movements Output, Stool 0 Output, Urine 1200 059 602 9959 100 Physical Exam: Pale-appearing elderly male in no acute distress with nasal oxygen in place. Baseline vital signs: See above. HEENT: Normocephalic, atraumatic, EOMI, slightly dry mucous membranes. Neck: No JVD, no bruits. Lungs: Clear to auscultation. Heart: S1, S2 with no murmur, gallop, or rub appreciated. NE fifth ICS at MCL. Abdomen: Soft, nontender, positive bowel sounds. Extremities: No edema. Current Medications: Current Medications Sig/Carlos Start time Last Medication Dose Route Stop Time Status Admin Acetaminophen 650 MG Q6P PRN 11/29 2144 AC PO Artificial Tears 2 GTT 4 TIMES/DAY 11/29 220 AC 11/30 OPH 2305 Ceftazidime 1,000 MG IQ8 11/30 1600 AC 12/01 IV 0811 Docusate Sodium 100 MG BID PRN 11/29 2144 AC PO Magnesium Oxide 400 MG ONE ONE 12/01 07 DC 12/01 PO 12/01 0731 0810 Morphine Sulfate 2 MG Q4P PRN 11/29 2144 AC 11/30 IV 0425 Oxycodone/ 1 TAB Q6P PRN 11/29 2144 AC 11/30 Acetaminophen PO 0632 Potassium Chloride 10 MEQ ONCE ONE 12/01 0730 DC 12/01 PO 12/01 0731 0810 Senna 187 MG AT BEDTIME NEED.. 11/29 2145 AC PO Sodium Chloride 1,000 ML BOLUS ONE 11/30 1045 DC 11/30 IV 11/30 1144 1000 Sodium Chloride 1,000 ML Q10H 11/30 0145 DC 12/01 IV 0359 Thyroid 1 GR DAILY AC 11/30 0700 AC 12/01 PO 0654 Vancomycin HCl 1,000 MG Q12H 11/30 0830 AC 12/01 Dextrose/Water 250 ML IV 0842 Results Last 48 Hrs of Labs/Mics: Laboratory Tests 12/01/16 0500: Anion Gap 1 L, Estimated GFR > 60, Glucose 97, Calcium 7.6 L, Phosphorus 2.0 L, Magnesium 1.7, Total Bilirubin 0.8, AST 42, ALT 34, Albumin 2.1 L, CBC w Diff NO MAN DIFF REQ, RBC 2.75 L, MCV 93.6, MCH 31.8 H, RDW 17.8 H, MPV 8.1, Gran % 68.5, Lymphocytes % 14.0 L, Monocytes % 15.9 H, Eosinophils % 0.8, Basophils % 0.8, Absolute Granulocytes 4.4, Absolute Lymphocytes 0.9 L, Absolute Monocytes 1.0 H, Absolute Eosinophils 0, Absolute Basophils 0.1, PUBS MCHC 34.0 12/01/16 0055: CBC w Diff NO MAN DIFF REQ, RBC 2.66 L, MCV 93.6, MCH 32.0 H, RDW 17.8 H, MPV 8.1, Gran % 68.9, Lymphocytes % 13.4 L, Monocytes % 16.4 H, Eosinophils % 0.7, Basophils % 0.6, Absolute Granulocytes 4.4, Absolute Lymphocytes 0.8 L, Absolute Monocytes 1.0 H, Absolute Eosinophils 0, Absolute Basophils 0, PUBS MCHC 34.2 11/30/16 1535: Troponin I < 0.01, CBC w Diff NO MAN DIFF REQ, RBC 2.69 L, MCV 93.9, MCH 31.6 H, RDW 18.2 H, MPV 7.4, Gran % 69.4, Lymphocytes % 12.7 L, Monocytes % 16.5 H , Eosinophils % 0.7, Basophils % 0.7, Absolute Granulocytes 4.4, Absolute Lymphocytes 0.8 L, Absolute Monocytes 1.1 H, Absolute Eosinophils 0, Absolute Basophils 0, PUBS MCHC 33.7 11/30/16 0900: CBC w Diff Cancelled, WBC Cancelled, RBC Cancelled, Hgb Cancelled, Hct Cancelled , MCV Cancelled, MCH Cancelled, RDW Cancelled, Plt Count Cancelled, MPV Cancelled, PUBS MCHC Cancelled 11/30/16 0600: Creatine Kinase Cancelled, CBC w Diff Cancelled, WBC Cancelled, RBC Cancelled, Hgb Cancelled, Hct Cancelled, MCV Cancelled, MCH Cancelled, RDW Cancelled, Plt Count Cancelled, MPV Cancelled, PUBS MCHC Cancelled 11/30/16 0450: Lactic Acid 1.6 11/30/16 0450: Anion Gap 4 L, Estimated GFR > 60, BUN/Creatinine Ratio 24.0, Creatine Kinase 691 H, Troponin I < 0.01, Cortisol AM Sample 18.3, CBC w Diff NO MAN DIFF REQ, RBC 2.17 L, MCV 98.4 H, MCH 32.4 H, RDW 15.4 H, MPV 8.1, Gran % 79.1 H, Lymphocytes % 8.6 L, Monocytes % 12.2 H, Eosinophils % 0, Basophils % 0.1, Absolute Granulocytes 6.5, Absolute Lymphocytes 0.7 L, Absolute Monocytes 1.0 H, Absolute Eosinophils 0, Absolute Basophils 0, PUBS MCHC 32.9 L 11/30/16 0200: Lactic Acid 1.6 11/29/16 2350: pH 7.43, pCO2 33 L, pO2 151 H, HCO3 22, ABG O2 Sat (Measured) 98.0, P-50 (Temp Corrected) N, Carboxyhemoglobin 0.3 L, O2 Concentration % 4L, O2 Delivery Method N/C, Phlebotomy Draw Site RIGHT RADIAL 11/29/16 2310: Anion Gap 5, Estimated GFR > 60, BUN/Creatinine Ratio 24.5, Troponin I < 0.01 11/29/16 2220: CBC w Diff NO MAN DIFF REQ, RBC 3.05 L, MCV 97.7 H, MCH 32.8 H, RDW 14.9 H, MPV 8.3, Gran % 79.4 H, Lymphocytes % 6.0 L, Monocytes % 14.3 H, Eosinophils % 0.1, Basophils % 0.2, Absolute Granulocytes 11.4 H, Absolute Lymphocytes 0.9 L, Absolute Monocytes 2.1 H, Absolute Eosinophils 0, Absolute Basophils 0, PUBS MCHC 33.6 11/29/16 2213: CBC w Diff Cancelled, WBC Cancelled, RBC Cancelled, Hgb Cancelled, Hct Cancelled , MCV Cancelled, MCH Cancelled, RDW Cancelled, Plt Count Cancelled, MPV Cancelled, PUBS MCHC Cancelled 11/29/16 1158: Creatine Kinase 277 H, PT 12.5, INR 1.19 H Microbiology 11/30 844 UPPER RESP: Surveillance Culture - COMP 11/30 844 GI: Surveillance Culture - COMP Recent Imaging Studies: Echocardiogram (11/30/2016): Normal size left ventricle. Mild concentric left ventricular hypertrophy. No obvious regional wall motion abnormalities. Normal left ventricular ejection fraction visually estimated at > 65%. "pseudonormal" filling pattern of the left ventricle for age (stage 2 diastolic dysfunction). Mild right ventricular dilatation. Normal atrial size. Mild aortic regurgitation. Trace tricuspid regurgitation. No evidence of pulmonary hypertension. Mild pulmonic regurgitation. Mildly dilated inferior vena cava. CXR (12/01/2016): Mild pulmonary venous congestion. No interstitial edema. Opacity at the left lung base is slightly increased as compared to prior, most likely atelectasis. Pneumonia or trace effusion are possible. Right hip x-ray (12/01/2016): Status post right hip hemiarthroplasty without evidence of complications. The medial margin of the femoral head component is not fully included on this image. Assessment/Plan Assessment/Plan Mr. Lockwood is an elderly male who presented 9 days after a fall during which she sustained a right femoral fracture for which he underwent right total hip arthroplasty on 11/29/2016, and who after returning to the general medical floor was found to be hypotensive and anemic prompting transfer to the ICU for hypovolemic shock. His initial hospital course was complicated by a difficult Grimm catheter placement with penetration of the prostate and it was felt that the postobstructive diuresis and blood loss anemia from the penetrated prostate and orthopedic procedure were responsible for the hypovolemia/blood loss that necessitated intensive care. Fortunately, he is now asymptomatic, hemodynamically improved after volume resuscitation, packed red blood cells, etc., and had negative troponins, and no worrisome acute ECG changes. Recommendations: * Okay for transfer to general medicine from cardiology standpoint. * Continue to follow-up H/H and platelets. * Continue to follow-up on urology and orthopedic recommendations. * Continue mechanical DVT prophylaxis (ALPS). Continue telemetry? No
[2016-12-01 16:00] VITALS: BP 132/67
[2016-12-01 17:46] VITALS: BP 130/70
--- NOTE | 2016-12-01 18:06 | NUR ---
TRANSFERED TO ROOM 229 BED 2. REPORT GIVEN TO PAULO. UPDATED ON NEW ROOM. PT MEDS UTD BEFORE TX. VSS. A/0. PAIN 0 AT REST. TYLENOL GIVEN FOR TEMP 0F 100.4
--- NOTE | 2016-12-01 19:30 | PN- Urology ---
Surgical Brief Attending Note Brief Attending Note: PT TRANSFERED TO FLOOR MUCH IMPROVED. U/O CLEAR YELLOW WITHOUT CBI. VSS AFEB. ABD SOFT. CONTINUE FLOMAX 0.4MG/HS AND PROSCAR 5MG PO DAILY. WILL VOID TRIAL AFTER RECOVERY FROM HIP SURGERY/PT. WILL LIKELY NEED TURP IF FAILS VT IN FUTURE.
--- NOTE | 2016-12-01 20:17 | NUR ---
1744- PT ARRIVED TO FLOOR VIA STRETCHER FROM CCU. A/V/OX3. DRESSING TO R HIP C,D,I. SAVAGE CATH DRAINING CLEAR YELLOW URINE. SMALL AMOUNT OF BLOOD NOTED AROUND MEATUS. BED ALARM IN PLACE. PT ORIENTED TO ROOM AND CALL LIGHT FOR ASSIST.
--- NOTE | 2016-12-01 20:28 | NUR ---
1800- SIZEWISE ORDERED. PT AMBULATING ONLY MINIMALLY WITH PT.
[2016-12-01 22:35] VITALS: BP 132/60
--- NOTE | 2016-12-02 07:21 | PN- Housestaff ---
Subjective Follow-up For: 1. POD3 s/p Right hip hemiarthroplasty. Right hip fx after mechanical fall. 2. Gait disturbance and multiple falls (for >6 months) 3. Trauamtic Jones catheter insertion, complicated by bleeding, Urology on board , off CBI. 4. Hypovolemic shock, post hip surgery and bleeding - resolved 5. AHRF - resolved 6. ABLA - s/p transfusion - resolved Subjective: I saw adn examiend Mr. Lockwood this am, he is an elderly patient, lying in bed, appears pale, alert and oriented but slow in speech and movements. Patient has a towel in the hand and wipes the eyes with the towel every now and then. Denies any headache or dizziness, denies any pain at the site of the sx right now. Denies any chest pain or SOB. Review of Systems Constitutional: Reports: weakness. Denies: chills, fever. EENTM: Reports: blurred vision, eye tearing, ear discharge. Denies: hearing changes, epistaxis, throat pain. Cardiovascular: Denies: chest pain, palpitations, syncope. Respiratory: Denies: cough, short of breath, sputum production. Gastrointestinal: Reports: constipation. Denies: abdominal pain, changes in stool. Genitourinary: Denies: discharge, dysuria, pain (has jones). Musculoskeletal: Reports: joint pain (right hip). Denies: back pain. Skin: Reports: no symptoms. Neurological/Psychological: Reports: ataxia, depressed, weakness. Denies: headache, numbness, paresthesia, tremors. Hematologic/Endocrine: Reports: bruising. Denies: bleeding, polyuria, polydipsia. Objective Last 24 Hrs of Vital Signs/I&O Vital Signs Date Time Temp Pulse Resp B/P Pulse O2 O2 Flow FiO2 Ox Delivery Rate 12/02 1650 Room Air 12/02 1631 Room Air 12/02 1445 98.6 84 20 130/70 96 Room Air 12/02 0732 99.6 80 22 122/64 95 Room Air 12/02 0000 93 12/01 2235 98.1 84 20 132/60 93 Room Air 12/01 1848 99.2 12/01 1746 98.3 80 16 130/70 95 Room Air 12/01 1745 96 Room Air Intake & Output 12/02 1600 12/02 0800 12/02 0000 Intake Total 480 490 490 Output Total 1770 1250 650 Balance -1290 -760 -160 Intake, IV 250 250 Intake, Oral 480 240 240 Output, Urine 1770 1250 650 Physical Exam General Appearance: Alert, Oriented X3, Cooperative, No Acute Distress Skin: No Rashes, there are a few papular lesions on the forehead, non itchy, non -ulcerative HEENT: Atraumatic, EOMI, pale mucous membrane Cardiovascular: Regular Rate, Normal S1, Normal S2, No Murmurs Lungs: Clear to Auscultation, Normal Air Movement Abdomen: Soft, No Tenderness Neurological: Normal Tone, Sensation Intact, Cranial Nerves 3-12 NL, slow speech , fluent speech, slow movements, no cogwheel rigidity, finger to nose normal, gait disturbance with tendency to bend forward to avid fallng backwards Extremities: No Cyanosis, No Edema, Normal Pulses Vascular: Pulses Symmetrical Current Medications: Current Medications Sig/Carlos Start time Last Medication Dose Route Stop Time Status Admin Acetaminophen 650 MG Q6P PRN 11/29 2144 AC 12/01 PO 1643 Artificial Tears 2 GTT 4 TIMES/DAY 11/29 2200 12/02 OPH 0935 Ceftazidime 1,000 MG IQ8 11/30 1600 12/02 IV 1621 Docusate Sodium 100 MG BID PRN 11/29 PO 1415 Enoxaparin Sodium 40 MG DAILY@1400 12/01 1457 12/02 SC 1406 Ergocalciferol 50,000 IU Q168 12/02 1215 12/02 PO 1406 Erythromycin See Dose 4 TIMES/DAY 12/02 0845 12/02 Insts (1) OPH 0957 Morphine Sulfate 2 MG Q4P PRN 11/29 21412/02 IV 1412 Oxycodone/ 1 TAB Q6P PRN 11/29 Acetaminophen PO 1145 Patient Medication 1 ED .STK-MED ONE 12/02 1420 MS Teaching ED 12/02 1421 Polyethylene Glycol 17 GM DAILY 12/02 1700 AC PO Senna 187 MG AT BEDTIME NEED.. 11/29 2144 12/02 PO 1415 Thyroid 1 GR DAILY AC 11/30 0700 12/02 PO 0648 Vancomycin HCl 1,000 MG Q12H 11/30 0830 12/02 Dextrose/Water 250 ML IV 0935 Dose Instructions: (1)Erythromycin: APPLY A THIN LAYER TO AFFECTED EYE(S) Last 24 Hrs of Lab/Julio Results Last 24 Hrs of Labs/Mics: Laboratory Tests 12/02/16 0635: Anion Gap 4 L, Estimated GFR > 60, BUN/Creatinine Ratio 16.3, Calcium 8.1 L, Phosphorus 2.3 L, PTH Intact 28.7, CBC w Diff NO MAN DIFF REQ, RBC 2.72 L, MCV 92.8, MCH 31.4 H, RDW 17.0 H, MPV 9.2, Gran % 72.7, Lymphocytes % 15.7 L, Monocytes % 9.9 H, Eosinophils % 0.7, Basophils % 1.0, Absolute Granulocytes 3.7, Absolute Lymphocytes 0.8 L, Absolute Monocytes 0.5, Absolute Eosinophils 0 , Absolute Basophils 0.1, PUBS MCHC 33.8 Assessment/Plan Assessment: 76-year-old gentleman with a PMH of HTN, hypothyroidism who presents with complaints of right-sided hip pain. Patient suffered a fall 10 days ago while ambulating with a cane and has since reported progressive/persistent pain mainly localized in the right hip and occasional radiation down towards the leg. VS on admission: BP 159/74, HR 77, RR 22, SPO2 95% on RA, T 97.3 Pertinent labs: CBC 7.2, H&H 11.4/33.6, platelets 188, BUN/CR 27/1.0, glucose 113 UA: Cloudy, turbid, greater than 300 protein, positive nitrites, trace leukocyte esterase, packed RBCs, large hemoglobin Right hip x-ray: Fracture of the right femoral neck with distal fragment displaced CXR: Unremarkable Problem list: 1. Right femoral neck fracture, POD3 post right hemiarthroplasty 2. Hematuria - resolved 3. Gait instability 4. watery eyes and eye discharge 5. Occasional constipation 6. Hypertension 7. Hypothyroidism Plan: -follow ortho recommendations, PT on board, patient can do weightbearing exercise -continue flomax and proscar, DC's CBI, patient will go home with jones catheter , urine is clear non bloody -F/U creatinine kinase -Patient complains of baseline gait disturbances fr about 6 months causing frequent falls, patient denies dizziness, palpitation, visual impairment, reports not being able to lift his feet completely that has contributed to the falls, ruled out vitamin B12 and folate deficiency. -started erythromycin ointment Q6 daily and advised not to use the towel to wipe the eyes and use a clean tissue every time. there is significant discharge from both eyes. -Constipation: Bowel regimen with senna and Colace, added miralax, reports no BM since -Holding amlodipine and GEOVANY inhibitor, BP in range right now -Hypothyroidism: Continue with armour thyroid 60mg daily -Social: patient is worried that he won't be able to pay fr imaging and burst int tears saying his is working so hard and they are not doing well financially, will obtain social work consult. -consider psychiatry consult, Hx of OCD, possible depression -DVT prophylaxis: lovenox started, ALPS -Diet: regular -CODE STATUS: Full code Problem List: 1. Hypovolemic shock 2. Hematuria 3. Acute blood loss anemia 4. Hypotension 5. Hypothyroidism 6. Hypertension 7. Vitamin D deficiency 8. Gait instability 9. Urinary outflow obstruction 10. Dehydration 11. Fracture of femoral neck, right 12. OCD (obsessive compulsive disorder) Pain Ratin Pain Location: left hip pain Pain Goal: Pain 4 or less Pain Plan: tylenol for mild pain oxycodone and morphine for mod-severe pain Tomorrow's Labs & Rationales: CBC (anemia) BEP (hyponatremia)
[2016-12-02 07:32] VITALS: BP 122/64
--- NOTE | 2016-12-02 08:18 | PN- Orthopedic ---
Subjective Subjective: Patient reporting no acute overnight events. He states that he feels better following blood transfusion 1 day ago. He specifically denies chest pain, shortness of breath, difficulty breathing. He feels that his pain is well controlled. He denies nausea and vomiting. He has a Grimm catheter in place. Objective Vital Signs and I&Os Vital Signs Date Time Temp Pulse Resp B/P Pulse O2 O2 Flow FiO2 Ox Delivery Rate 12/02 0732 99.6 80 22 122/64 95 Room Air 12/02 0000 93 12/01 2235 98.1 84 20 132/60 93 Room Air 12/01 1848 99.2 12/01 1746 98.3 80 16 130/70 95 Room Air 12/01 1745 96 Room Air 12/01 1600 100.4 87 20 132/67 96 Nasal 1.0L Cannula Intake & Output 12/02 1600 12/02 0800 12/02 0000 12/01 1600 12/01 0800 12/01 0000 Intake Total 490 1500 1850 1970 Output Total 1250 424 287 0023 800 Balance -1250 -160 431 835 3998 Intake, IV 494 867 8258 1970 Intake, Oral 240 600 450 Number 0 Bowel Movements Output, Stool 0 Output, Urine 1250 580 117 6364 800 Physical Exam: Gen.: Alert and oriented 3, no acute distress Cardiac: Regular rhythm and rate, S1-S2 Pulmonary: Bilateral lung sounds clear to auscultation Abdomen: Nontender nondistended, passing flatus, no BM Extremities: Moves all extremities, distal sensations intact. Gross motor intact. 1-2+ pitting edema noted bilateral lower extremities, skin warm and well perfused. DP pulses weak but palpable. Bilateral calves soft and nontender Surgical site: Right hip: Dressing dry and intact, thigh compartments soft. Assessment/Plan Assessment/Plan This is a 76-year-old male postop day 3 status post left hip hemiarthroplasty for femoral neck fracture. Postoperative course complicated by hypotension, transferred to intensive care unit one day ago, received blood transfusion, clinically improving and has returned to general surgical floor. Past medical history includes hypertension, hypothyroid, enlarged prostate. Traumatic Grimm catheter insertion upon admission to emergency department. Urine remaining clear, Grimm catheter in place -Continue current pain regimen -Out of bed, weightbearing as tolerated -Primary care to be provided by medicine team -Surgical team will be available for consultation
[2016-12-02 08:42] LABS: ABSOLUTE BASOPHIL COUNT 0.1 /CUMM (0.0-0.2); ABSOLUTE EOSINOPHIL COUNT 0 /CUMM (0.0-0.7); ABSOLUTE GRANULOCYTE CT 3.7 /CUMM (1.4-6.5); ABSOLUTE LYMPH COUNT 0.8 /CUMM (1.2-3.4); ABSOLUTE MONOCYTE COUNT 0.5 /CUMM (0.10-0.60); EOSINOPHIL % 0.7 % (0-5); GRANULOCYTE % 72.7 % (42.2-75.2); HEMATOCRIT 25.3 % (42-52); MEAN CORPUSCULAR HGB 31.4 PG (27.0-31.0); MEAN CORPUSCULAR HGB CONC 33.8 G/DL (33.0-37.0); MEAN CORPUSCULAR VOLUME 92.8 FL (80.0-94.0); MEAN PLATELET VOLUME 9.2 FL (7.4-10.4); PLATELET COUNT 143 /CUMM (130-400); RED BLOOD CELL CT 2.72 /CUMM (4.70-6.10); WHITE BLOOD CELL COUNT 5.1 /CUMM (4.8-10.8)
--- NOTE | 2016-12-02 11:26 | PN- Pulmonary ---
Subjective HPI/Critical Care Issues: pt seen and examined transferred out of icu no events at respiratory baseline no cp no n/v/d/c dizziness is chronic Objective Current Medications: Current Medications Sig/Carlos Start time Last Medication Dose Route Stop Time Status Admin Acetaminophen 650 MG .STK-MED ONE 12/01 1635 DC PO 12/01 1636 Acetaminophen 650 MG .STK-MED ONE 12/01 1157 DC PO 12/01 1158 Acetaminophen 650 MG Q6P PRN 11/29 2145 AC 12/01 PO 1643 Artificial Tears 2 GTT 4 TIMES/DAY 11/29 2200 AC 12/02 OPH 0935 Ceftazidime 1,000 MG IQ8 11/30 1600 AC 12/02 IV 0935 Docusate Sodium 100 MG BID PRN 11/29 214 AC PO Enoxaparin Sodium 40 MG DAILY@1400 12/01 1457 AC 12/01 SC 1722 Erythromycin See Dose 4 TIMES/DAY 12/02 0845 AC 12/02 Insts (1) OPH 0957 Morphine Sulfate 2 MG Q4P PRN 11/29 2145 AC 11/30 IV 0425 Oxycodone/ 1 TAB Q6P PRN 11/29 2145 AC 11/30 Acetaminophen PO 0632 Senna 187 MG AT BEDTIME NEED.. 11/29 2144 AC PO Sodium Chloride 1,000 ML Q10H 11/30 0145 DC 12/01 IV 0359 Thyroid 1 GR DAILY AC 11/30 0700 AC 12/02 PO 0648 Vancomycin HCl 1,000 MG Q12H 11/30 0830 AC 12/02 Dextrose/Water 250 ML IV 0935 Dose Instructions: (1)Erythromycin: APPLY A THIN LAYER TO AFFECTED EYE(S) Vital Signs & I&O Last 24 Hrs of Vitals and I&O: Vital Signs Date Time Temp Pulse Resp B/P Pulse O2 O2 Flow FiO2 Ox Delivery Rate 12/02 0732 99.6 80 22 122/64 95 Room Air 12/02 0000 93 12/01 2235 98.1 84 20 132/60 93 Room Air 12/01 1848 99.2 12/01 1746 98.3 80 16 130/70 95 Room Air 12/01 1745 96 Room Air 12/01 1600 100.4 87 20 132/67 96 Nasal 1.0L Cannula Intake & Output 12/02 1600 12/02 0800 02/28 0000 Intake Total 490 490 Output Total 1250 650 Balance -760 -160 Intake, IV 250 250 Intake, Oral 240 240 Output, Urine 1250 650 Exam Other Physical Findings: gen awake and alert heent ncat cvs s1, s2 lungs ctab abd soft bs+ ext without edema jones catheter bag with shayy/yellowish fluid no blood Results Last 24 Hrs of Lab Results: Laboratory Tests 12/02/16 0635: Anion Gap 4 L, Estimated GFR > 60, BUN/Creatinine Ratio 16.3, CBC w Diff NO MAN DIFF REQ, RBC 2.72 L, MCV 92.8, MCH 31.4 H, RDW 17.0 H, MPV 9.2, Gran % 72.7, Lymphocytes % 15.7 L, Monocytes % 9.9 H, Eosinophils % 0.7, Basophils % 1.0, Absolute Granulocytes 3.7, Absolute Lymphocytes 0.8 L, Absolute Monocytes 0.5, Absolute Eosinophils 0, Absolute Basophils 0.1, PUBS MCHC 33.8 Impression/Plan Impression/Plan Impression/Plan: Impression 76 year old man - post obstructive diuresis and decompression hematuria (hemorrhagic cystitis) - acute blood loss anemia secondary to above - left hip fracture s/p left hemiarthroplasty 11/29/16 - left lung opacity likely atelectasis, ?aspiration - diastolic dysfunction Plan - orthopedic and urology consultations are reviewed and appreciated - jones management is strictly per urology - cbc stable, monitor daily - monitor hemodynamics - monitor ins/outs, electrolytes - DVT prophylaxis with ALPS (Lovenox was stopped this am) call back with any questions
[2016-12-02 14:45] VITALS: BP 130/70
--- NOTE | 2016-12-02 15:52 | PN- Att Addend ---
Attending MD Review Statement Attending Statement Attending MD Statement: examined this patient, discuss w/resident/PA/DEALER CARD ROOM, agreed w/resident/PA/[facility]ALER [facility] ROOM, reviewed EMR data (avail), discussed w/nursing Attending Assessment/Plan: Laboratory Tests 12/02/16 0635: Anion Gap 4 L, Estimated GFR > 60, BUN/Creatinine Ratio 16.3, Calcium 8.1 L, Phosphorus 2.3 L, PTH Intact 28.7, CBC w Diff NO MAN DIFF REQ, RBC 2.72 L, MCV 92.8, MCH 31.4 H, RDW 17.0 H, MPV 9.2, Gran % 72.7, Lymphocytes % 15.7 L, Monocytes % 9.9 H, Eosinophils % 0.7, Basophils % 1.0, Absolute Granulocytes 3.7, Absolute Lymphocytes 0.8 L, Absolute Monocytes 0.5, Absolute Eosinophils 0 , Absolute Basophils 0.1, PUBS MCHC 33.8 Vital Signs Date Time Temp Pulse Resp B/P Pulse O2 O2 Flow FiO2 Ox Delivery Rate 12/02 1445 98.6 84 20 130/70 96 Room Air 12/02 0732 99.6 80 22 122/64 95 Room Air 12/02 0000 93 12/01 2235 98.1 84 20 132/60 93 Room Air 12/01 1848 99.2 12/01 1746 98.3 80 16 130/70 95 Room Air 12/01 1745 96 Room Air 12/01 1600 100.4 87 20 132/67 96 Nasal 1.0L Cannula Patient seen and examined at bedside. Patient status post right femoral fracture repair. Patient has had falls at home with instability of his gait since summer. He states that he feels that he will fall backwards when he is walking and thus walks leaning forward. We will get CT scan of the head and CT scan of the cervical spine to further evaluate the etiology. Patient does give a history of TIA in the past with slurred speech. If the CT of the head and CT scan of the cervical spine are unrevealing we will get MRI of the brain and will get neurology consult tomorrow. Extraocular muscle movement intact and pt may have gait issues but unable to check that due to recent surgery. Sensory exam of the lower extremity is normal. We will check calcium and phosphorus level and will also get PTH level. We'll start the patient on calcium and vitamin D supplementation. Discussed with patient the care plan.
--- NOTE | 2016-12-02 17:03 | CT SCAN REPORT ---
EXAMINATION: CT HEAD W/O IV CONTRAST CT CERVICAL SPINE W/O IV CONTRAST CLINICAL INFORMATION: 76-year-old male with six-month history of falling backward. Difficulty with steps. Recent fall complicated by greater trochanteric fracture. Evaluate for cerebellar infarction and cord compression. COMPARISON: None TECHNIQUE: Head - Contiguous axial imaging of the head was performed from the skull base to the vertex without the administration of intravenous contrast, and axial images reconstructed at 0.625 mm, 2.5 mm and 5 mm slice thickness. Cervical spine - Volumetric, helical CT acquisition of the cervical spine was obtained without contrast; in addition to the standard set of axial images, multiplanar reformatted images were provided in the coronal and sagittal imaging planes. DLP: 1113 mGy-cm (total) FINDINGS: HEAD: No acute intracranial hemorrhage, extra-axial fluid collection, mass or midline shift. No signs of an acute major vascular territory infarction. Cerebellum and brainstem are grossly unremarkable; no evidence of cerebellar infarction. The lua-white matter differentiation is maintained. There is atherosclerotic calcification of carotid siphons and right vertebral artery. Moderate atrophy of cerebral hemispheres associated with symmetric prominence of ventricles, sulci and cisterns. A few of the left mastoid air cells are opacified. There is mucosal thickening of bilateral maxillary and ethmoid air cells without air-fluid levels. The orbits, globes and temporomandibular joints are unremarkable. CERVICAL SPINE: No acute fractures within anterior or posterior elements. No prevertebral soft tissue swelling. The occipital condyles, atlas, axis and atlantoaxial articulation are intact. There is levoscoliosis of the degenerated cervical spine. Multilevel facet osteoarthritis (right worse then left). At C2-C3, facet arthropathy and uncovertebral joint hypertrophy produce mild right-sided foraminal stenosis. At C3-C4, there is mild disc space narrowing, disc bulge, facet arthropathy and right-sided uncovertebral joint hypertrophy producing severe right-sided foraminal stenosis. The disc bulge produces indentation upon the ventral surface of the thecal sac. At C4-C5 there is minimal degenerative anterolisthesis of C4, mild left foraminal stenosis and moderate right foraminal stenosis. The degenerative disc space narrowing is moderate to severe at C5-C6 and C6-C7. There is mild bilateral foraminal narrowing at C5-C6, [id number] foraminal narrowing on the right at C6-C7, and [id number] left-sided foraminal narrowing on the left at C6-C7. At C7-T1, facet arthropathy and disc degeneration are associated with 3 mm of anterolisthesis of C7 on T1. No paraspinal fluid collection or hematoma. Thyroid gland is atrophied. There is atherosclerotic calcification of the carotid bulbs. No acute findings in the visualized lung apices. IMPRESSION: 1. No acute intracranial pathology. 2. No evidence of cerebellar infarction. 3. Within the extensively degenerated cervical spine, there is no evidence of high-grade central canal stenosis, epidural hematoma or spinal cord compression. There is multilevel degenerative disc disease, facet osteoarthritis and uncovertebral joint hypertrophy, and neural foraminal stenosis appears most severe on the right at the C3-C4 level.
[2016-12-02 22:57] VITALS: BP 118/58
[2016-12-03 06:39] VITALS: BP 136/70
--- NOTE | 2016-12-03 06:56 | PN- Housestaff ---
Subjective Follow-up For: 1. POD4 s/p Right hip hemiarthroplasty. Right hip fx after mechanical fall. 2. Gait disturbance and multiple falls (for >6 months) 3. Trauamtic Jones catheter insertion, complicated by bleeding, Urology on board , off CBI, urine clear. 4. Hypovolemic shock, post hip surgery and bleeding - resolved 5. AHRF - resolved 6. ABLA - s/p transfusion - resolved Subjective: I saw and examined the patient this morning at bedside. He is awake alert and oriented in no distress. Patient reports he felt he has 'phlegm' in the left ear and had to tap on it to open up the canal. Denies any pain in the left ear. Reports occasional shortness of breath especially when he takes pain medications including Percocet or morphine. Currently denies any pain on the right hip. Patient has not had any bowel movement yet despite additional bowel regiment yesterday. Review of Systems Constitutional: Reports: weakness. Denies: chills, fever. EENTM: Denies: ear discharge, ear pain, ear redness, hearing changes (reports left ear gets clogged). Cardiovascular: Denies: chest pain, orthopena, palpitations, peripheral edema. Respiratory: Reports: short of breath (occasional with pain medicatio). Denies: cough. Gastrointestinal: Reports: bloating, constipation. Denies: abdominal pain, diarrhea, nausea, bloody stool, changes in stool, vomiting. Genitourinary: Denies: dysuria. Musculoskeletal: Denies: back pain, joint pain (currently no pain, positional). Skin: Reports: no symptoms. Neurological/Psychological: Reports: ataxia. Denies: headache, numbness, paresthesia, weakness. Hematologic/Endocrine: Reports: no symptoms. Objective Last 24 Hrs of Vital Signs/I&O Vital Signs Date Time Temp Pulse Resp B/P Pulse O2 O2 Flow FiO2 Ox Delivery Rate 12/03 0639 98.7 83 20 136/70 95 Room Air 12/02 2257 98.4 81 20 118/58 95 Room Air 12/02 1650 Room Air 12/02 1631 Room Air 12/02 1445 98.6 84 20 130/70 96 Room Air Intake & Output 12/03 1600 / 0800 12/03 0000 Intake Total 880 Output Total 1850 750 Balance -1850 130 Intake, IV 280 Intake, Oral 600 Output, Urine 1850 750 Physical Exam General Appearance: Alert, Oriented X3, Cooperative, No Acute Distress Skin: No Significant Lesion, there is an erythematous skin rash with dryness and hyperkeratosis on the left knee and below the knee. HEENT: Atraumatic, EOMI, Mucous Membr. moist/pink, there is less eye drainage and secretion today, patient has been using erythromycin ointment and clean napkins to wipe the eyes. Neck: Supple, No JVD Cardiovascular: Regular Rate, Normal S1, Normal S2, No Murmurs Lungs: Clear to Auscultation, Normal Air Movement Abdomen: Soft, No Tenderness Neurological: Normal Tone, slow speech, fluent, slow movements, no change compared to yesterday. Extremities: No Clubbing, No Cyanosis, No Edema, Normal Pulses, lower extremities immobilized while in bed to decrease pain on the right hip. Vascular: Pulses Symmetrical Current Medications: Current Medications Sig/Carlos Start time Last Medication Dose Route Stop Time Status Admin Acetaminophen 650 MG Q6P PRN 11/29 PO 1643 Artificial Tears 2 GTT 4 TIMES/DAY 11/29 2200 12/02 OPH 2139 Calcium/Vitamin D 500 MG DAILY 12/02 1716 AC 12/02 PO 1918 Ceftazidime 1,000 MG IQ8 11/30 1600 AC 12/03 IV 0029 Docusate Sodium 100 MG BID PRN 11/29 PO 1415 Enoxaparin Sodium 40 MG DAILY@1400 12/01 1457 12/02 SC 1406 Ergocalciferol 50,000 IU Q168 12/02 1215 12/02 PO 1406 Erythromycin See Dose 4 TIMES/DAY 12/02 0845 12/02 Insts (1) OPH 2139 Morphine Sulfate 2 MG Q4P PRN 11/29 2145 12/02 IV 2139 Oxycodone/ 1 TAB Q6P PRN 11/29 Acetaminophen PO 0629 Patient Medication 1 ED .STK-MED ONE 12/02 1420 MT Teaching ED 12/02 1421 Polyethylene Glycol 17 GM DAILY 12/02 1700 AC 12/02 PO 1918 Senna 187 MG AT BEDTIME NEED.. 11/29 PO 1415 Thyroid 1 GR DAILY AC 11/30 0700 AC 12/03 PO 0629 Vancomycin HCl 1,000 MG Q12H 11/30 0830 AC 12/02 Dextrose/Water 250 ML IV 1957 Dose Instructions: (1)Erythromycin: APPLY A THIN LAYER TO AFFECTED EYE(S) Last 24 Hrs of Lab/Julio Results Last 24 Hrs of Labs/Mics: Laboratory Tests 12/03/16 0640: Sodium Pending, Potassium Pending, Chloride Pending, Carbon Dioxide Pending, Anion Gap Pending, BUN Pending, Creatinine Pending, BUN/Creatinine Ratio Pending , Magnesium Pending, CBC w Diff Pending, WBC Pending, RBC Pending, Hgb Pending, Hct Pending, MCV Pending, MCH Pending, RDW Pending, Plt Count Pending, MPV Pending, PUBS MCHC Pending Assessment/Plan Assessment: 76-year-old gentleman with a PMH of HTN, hypothyroidism who presents with complaints of right-sided hip pain. Patient suffered a fall 10 days ago while ambulating with a cane and has since reported progressive/persistent pain mainly localized in the right hip and occasional radiation down towards the leg. VS on admission: BP 159/74, HR 77, RR 22, SPO2 95% on RA, T 97.3 Pertinent labs: CBC 7.2, H&H 11.4/33.6, platelets 188, BUN/CR 27/1.0, glucose 113 UA: Cloudy, turbid, greater than 300 protein, positive nitrites, trace leukocyte esterase, packed RBCs, large hemoglobin Right hip x-ray: Fracture of the right femoral neck with distal fragment displaced CXR: Unremarkable Problem list: 1. Right femoral neck fracture, POD3 post right hemiarthroplasty 2. Hematuria - resolved 3. Gait instability 4. watery eyes and eye discharge 5. Occasional constipation 6. Hypertension 7. Hypothyroidism Plan: * Right femoral neck fracture: follow ortho recommendations, PT on board * BPH: continue flomax and proscar, we discontinued CBI, patient will go home with jones catheter for 1 month, urine is clear and non bloody. Will follow up with Urology outpatient. * Creatinine kinase was elevated, is trending down. * Gait disturbances for about 6 months causing frequent falls, patient denies dizziness, palpitation, visual impairment, reports not being able to lift his feet completely that has contributed to the falls, ruled out vitamin B12 and folate deficiency. Lyme titer pending * CT head and cervical spine: No acute intracranial pathology. No evidence of cerebellar infarction. Extensively degenerated cervical spine, but there is no evidence of high-grade central canal stenosis, epidural hematoma or spinal cord compression. * Ocular mucopurulent discahrge B/L: Continue erythromycin ointment Q6 daily and advised not to use the towel to wipe the eyes and use a clean tissue every time. there is significant discharge from both eyes. * Constipation: Bowel regimen with senna and Colace, added miralax, reports no BM since * Holding amlodipine and GEOVANY inhibitor, BP in normal range right now * Hypothyroidism: Continue with armour thyroid 60mg daily * DVT prophylaxis: lovenox started, ALPS * Diet: regular * CODE STATUS: Full code Problem List: 1. OCD (obsessive compulsive disorder) Pain Ratin Pain Location: right hip Pain Goal: Pain 4 or less Pain Plan: mild pain with tylenol moderate pain percecet severe pain morphine Tomorrow's Labs & Rationales: CBC ,BEP , P Anemia, hyponatremia, hyophsphatemia
--- NOTE | 2016-12-03 08:08 | PN- Student ---
JESUS MANUEL MARTIN 12/03/16 0806: Subjective Subjective: Patient is seen and examined at bedside. No acute events overnight. Pain is well controlled with morphine, percoset and acetaminophen. Patient is afebrile and denies chills, night sweats, headaches, vision changes, nausea, vomiting, chest pain, palpitations, shortness of breath, abdominal pain, and bowel movements. Patient has + flatus. Patient did mention a history of torn meniscus of his right knee from when he was in the , but has never had a MRI to confirm the diagnosis. Patient did attribute this issue to his instability but states this is unrelated to his neurological complaints of unsteady gait. Patient has no other concerns at this time. Objective Objective: Gen: AAOx3, NAD, good hygiene, normal affect Skin: warm and moist to touch, no rashes, bruises, cyanosis, jaundice, pallor Head: Normocephalic, Atraumatic Eyes: mild conjunctival injection bilaterally, no discharge, no scleral icterus Ears: Symmetric, no tenderness, no discharge Nose: no discharge Mouth, Throat: no erythema, no exudate Neck: Supple, no thryoidmegaly, no masses appreciated Cardiac: RRR, normal S1, S2, no murmurs/rubs/gallops Resp: Anterior lung guevara clear to auscultation bilaterally, Posterior lung guevara clear to ausculation bilaterally, no increase work of breathing, Abdomen: + bowel sounds (normoactive), soft, non-distended, mildly tender to palpation in the suprapubic region but otherwise abdomen is non-tender to palpation. No hepatosplenomegaly. no rebound, no guarding. : Jones catheter bag contains yellow clear urine with no hematuria Ext: no significant signs of muscle atrophy Neurologic: Sensation intact. Psych: Deferred Results Results: Laboratory Tests 12/03/16 0640: Sodium Pending, Potassium Pending, Chloride Pending, Carbon Dioxide Pending, Anion Gap Pending, BUN Pending, Creatinine Pending, BUN/Creatinine Ratio Pending , Magnesium Pending, CBC w Diff Pending, WBC Pending, RBC Pending, Hgb Pending, Hct Pending, MCV Pending, MCH Pending, RDW Pending, Plt Count Pending, MPV Pending, PUBS MCHC Pending 12/02/16 0635: Anion Gap 4 L, Estimated GFR > 60, BUN/Creatinine Ratio 16.3, Calcium 8.1 L, Phosphorus 2.3 L, Creatine Kinase 412 H, PTH Intact 28.7, CBC w Diff NO MAN DIFF REQ, RBC 2.72 L, MCV 92.8, MCH 31.4 H, RDW 17.0 H, MPV 9.2, Gran % 72.7, Lymphocytes % 15.7 L, Monocytes % 9.9 H, Eosinophils % 0.7, Basophils % 1.0, Absolute Granulocytes 3.7, Absolute Lymphocytes 0.8 L, Absolute Monocytes 0.5, Absolute Eosinophils 0, Absolute Basophils 0.1, [facility] MCHC 33.8 12/01/16 0500: Anion Gap 1 L, Estimated GFR > 60, Glucose 97, Calcium 7.6 L, Phosphorus 2.0 L, Magnesium 1.7, Total Bilirubin 0.8, AST 42, ALT 34, Albumin 2.1 L, CBC w Diff NO MAN DIFF REQ, RBC 2.75 L, MCV 93.6, MCH 31.8 H, RDW 17.8 H, MPV 8.1, Gran % 68.5, Lymphocytes % 14.0 L, Monocytes % 15.9 H, Eosinophils % 0.8, Basophils % 0.8, Absolute Granulocytes 4.4, Absolute Lymphocytes 0.9 L, Absolute Monocytes 1.0 H, Absolute Eosinophils 0, Absolute Basophils 0.1, [facility] MCHC 34.0 12/01/16 0055: CBC w Diff NO MAN DIFF REQ, RBC 2.66 L, MCV 93.6, MCH 32.0 H, RDW 17.8 H, MPV 8.1, Gran % 68.9, Lymphocytes % 13.4 L, Monocytes % 16.4 H, Eosinophils % 0.7, Basophils % 0.6, Absolute Granulocytes 4.4, Absolute Lymphocytes 0.8 L, Absolute Monocytes 1.0 H, Absolute Eosinophils 0, Absolute Basophils 0, [facility] MCHC 34.2 11/30/16 1535: Troponin I < 0.01, CBC w Diff NO MAN DIFF REQ, RBC 2.69 L, MCV 93.9, MCH 31.6 H, RDW 18.2 H, MPV 7.4, Gran % 69.4, Lymphocytes % 12.7 L, Monocytes % 16.5 H , Eosinophils % 0.7, Basophils % 0.7, Absolute Granulocytes 4.4, Absolute Lymphocytes 0.8 L, Absolute Monocytes 1.1 H, Absolute Eosinophils 0, Absolute Basophils 0, PUBS MCHC 33.7 11/30/16 0900: CBC w Diff Cancelled, WBC Cancelled, RBC Cancelled, Hgb Cancelled, Hct Cancelled , MCV Cancelled, MCH Cancelled, RDW Cancelled, Plt Count Cancelled, MPV Cancelled, PUBS MCHC Cancelled Microbiology 11/30 844 UPPER RESP: Surveillance Culture - COMP 11/30 844 GI: Surveillance Culture - COMP Assessment/Plan Assessment: 76-year-old gentleman with a PMH of HTN and Hypothyroidism who presents to [place] ED with complaints of progressive/persistent right-sided hip pain following a fall 10 days ago. Patient was found on the ground by his spouse, 1.5 hrs post-fall and denies syncope or loss of conciousness. Patient's vital signs on admission: BP 159/74, HR 77, RR 22, SPO2 95% on RA, T 97.3. Since admission, the patient had a complicated hospital course involving right hemiarthroplasty for a right femoral neck fracture, severe iatrogenic hematuria, acute anemia, hypotension (80/40), hypoxemia (88% on 4L O2) that required ICU admission. Patient was transferred from ICU to general medicine on 05/31/17. To assess patient's problem with unsteady gait, CT without contrast of his head and cervical region was done yesterday. Radiology reports showed severe foraminal stenosis at the C3-C4 level but no signs of central spinal cord compression and cerebellar infarcts. Patient's history of hiking in an endemic region and chronic arthritis and neurological symptoms, make us suspicious of possible late stage lyme disease. Right hip x-ray: Fracture of the right femoral neck with distal fragment displaced CXR: Unremarkable for aspiration pneumonia but has possible signs of atelectasis. Plan: Problem list: 1. Right femoral neck fracture, POD3 post right hemiarthroplasty -follow ortho recommendations, PT on board, patient can do weightbearing exercise -will plan for outpatient rehab after rehab -possible knee brace for instability due to possible mensical tear of his right knee 2. Hematuria - resolved -stop IV antibiotics -continue flomax and proscar, DC's CBI, patient will go home with jones catheter for 1month -follow up with urology outpatient 3. Gait instability -order a lyme serology test to r/o late stage lyme -RPR titre -ask patient ETOH history -folate and vit B12 deficency is ruled out 4. conjunctivial injection, waterry eyes -started erythromycin ointment Q6 daily 5. Occasional constipation -Bowel regimen with senna and Colace, added miralax, reports no BM since 6. Hypertension -Holding amlodipine and GEOVANY inhibitor as BP is current stable and within the normal range 7. Hypothyroidism -Continue with armour thyroid 60mg daily 8. DVT prophylaxis -Continue lovenox started, ALPS 9. Possible Atelectasis -Respiratory therapy and start patient on incentive spirometery q4hrs 10. Diet -Continue regular diet 11. Code Status -Full Code
[2016-12-03 08:11] LABS: ABSOLUTE BASOPHIL COUNT 0.1 /CUMM (0.0-0.2); ABSOLUTE EOSINOPHIL COUNT 0.1 /CUMM (0.0-0.7); ABSOLUTE GRANULOCYTE CT 3.2 /CUMM (1.4-6.5); ABSOLUTE LYMPH COUNT 0.9 /CUMM (1.2-3.4); ABSOLUTE MONOCYTE COUNT 0.5 /CUMM (0.10-0.60); BASOPHIL % 1.5 % (0.0-2.0); EOSINOPHIL % 1.6 % (0-5); GRANULOCYTE % 67.7 % (42.2-75.2); MEAN CORPUSCULAR HGB 31.6 PG (27.0-31.0); MEAN CORPUSCULAR HGB CONC 33.7 G/DL (33.0-37.0); MEAN CORPUSCULAR VOLUME 93.8 FL (80.0-94.0); MEAN PLATELET VOLUME 9.1 FL (7.4-10.4); PLATELET COUNT 174 /CUMM (130-400); RBC DISTRIBUTION WIDTH 16.7 % (11.5-14.5); RED BLOOD CELL CT 2.88 /CUMM (4.70-6.10); WHITE BLOOD CELL COUNT 4.8 /CUMM (4.8-10.8)
--- NOTE | 2016-12-03 12:27 | Discharge Summary ---
Visit Information Visit Dates Admission Date: 11/29/16 Discharge Date: 12/05/2016 Hospital Course Course Attending Physician: DUNCAN MAGANA MD Primary Care Physician: BAIRON LANDIN MD Consulting Request: Consulting Specialty: Critical Care Hospital Course: Mr. Lockwood is a 76-year-old gentleman with a PMH of HTN, hypothyroidism who presents with complaints of right-sided hip pain. He initially suffered a fall in March 2016 and since then he reports intermittent episodes of falling backwards whenever he stands upright. He has been ambulating intermittently with the use of a cane but I'll see with the aid of a rolling walker. On November 19 he suffered a fall while using his cane landing on his right side with resultant pain that persisted until presenting to the hospital 10 days later. He describes the pain as a stabbing sensation localized around the right hip with occasional radiation down towards his leg. Information obtained from the patient's also indicates intermittent episodes of dark urine the day prior to presenting in the ED. ROS: He denied LOC, blurred vision, chest pain, palpitations, shortness of breath, nausea, abdominal pain. He did endorse occasional constipation which is well managed with prune juice. VS on admission: BP 159/74, HR 77, RR 22, SPO2 95% on RA, T 97.3 Physical exam on admission: 880, no acute distress. No apparent bruising evident on the right hip. Mucous membranes were moist. RRR, normal S1/S2. Lungs CTA BL with diminished breath sounds and basilar regions. Normal bowel sounds with no tenderness to palpation. Strength 5/5 bilateral upper extremities. 3+ pitting edema bilateral lower extremities, scant petechia in the lower extremities. Symmetrical pulses. Pertinent labs: CBC 7.2, H&H 11.4/33.6, platelets 188, BUN/CR 27/1.0, glucose 113 UA: Cloudy, turbid, greater than 300 protein, positive nitrites, trace leukocyte esterase, packed RBCs, large hemoglobin Right hip x-ray: Fracture of the right femoral neck with distal fragment displaced CXR: Unremarkable The patient was admitted to the general medicine floor for management of the following problems: 1. Right femoral neck fracture 2. Hematuria 3. Gait instability 4. Anemia 5. Transient hypotension 6. Conjunctivitis 7. Intermittent constipation 8. Hypertension 9. Hypothyroidism Hospital course: 1. Right femoral neck fracture * The patient was admitted to general medicine for risk stratification prior to surgery. Based on his medical history he was classified as a low risk for cardiac events associated with his surgery. The patient was assessed by Dr. Lovelace from orthopedics and was taken to the operating room later that afternoon for the procedures indicated below * Right hip hemiarthroplasty: Right femoral neck fracture status post Toñito Accolade 2 fracture stem, 55 unipolar endoprosthetic head standard neck length implanted. Post-procedure the skin was closed with arleen * Weight-bearing status: Weightbearing as tolerated * Patient will need to follow with orthopedics within 3 weeks of discharge. * He has to keep the foam pillow and use it to immobilize legs while in the bed, this is to prevent crossing the legs, and prevent damage to the fracture site. 2. Hematuria * On initial assessment with the patient he was noted to have a Grimm catheter in place with scant pipo red blood within the tubing and bag. Records did indicate difficulty with Grimm placement while in the ED requiring multiple attempts. Out of concern for possible urethral trauma obtained urinary ultrasound * Renal ultrasound results: Large complex cystic mass in the pelvis, separate from the kidneys and bladder. Suspicious for cystic neoplasm though is incompletely assessed on the exam. Small lower pole right renal cyst. A bladder completely decompressed by a Grimm catheter. * Out of concerns for the above findings we consulted orthopedics to delay the planned surgery and sent for stat CT abdomen and pelvis * CT abdomen and pelvis: Mild fullness of both renal collecting systems and both ureters is present with moderately enlarged prostate which is protruding into the urinary bladder. A Grimm's catheter is localized within the prostatic gland slightly to the right of the midline and needs to be repositioned. The sonographic suspected large cystic mass appeared to be markedly distended urinary bladder which is seen extending above the level of the umbilicus. There is suggestion of nonspecific focal soft tissue thickening identified within the base, lower posterior wall of the urinary bladder with thin septation which presumably represents urinary bladder wall thickening and superimposed diverticula. Following repositioning of the Grimm's catheter, a followup limited pelvic ultrasound to document collapse of the distended urinary bladder, thus confirming the cystic structure to be the urinary bladder is recommended. The focal soft tissue prominence within the urinary bladder may represent focal cystitis and/or other pathology including neoplasm. Followup direct visualization cystoscopy may be considered if clinically appropriate for further clarification. * We obtained a stat urology consult (Dr. Morel), discontinued IV fluids and removed the Grimm catheter that was in place. He was taken to the operating room by both Dr. Morel and Dr. Lovelace for simultaneous surgeries. * He underwent a cystoscopy with replacement of the Grimm catheter, post procedure continuous bladder irrigation with successful clearing of urine. Current plans are for long-term Grimm with follow-up in a few weeks with Dr. Morel. Continue Flomax 0.3 mg and Proscar 5 mg daily. Post recovery from his hip surgery attempts will be for voiding trial and if unsuccessful patient may require TURP 3. Gait instability * Since his fall in March 2016 he reports significant difficulty with ambulation specifically loss of balance and falling backwards whenever he stands upright, difficulty with raising his feet when walking up steps. Prior to this fall he endorsed regular hiking as recently as early 2015. * Follow-up CT head and cervical spine: No evidence of cerebellar infarction. Within the extensively degenerated cervical spine, there is no evidence of high- grade central canal stenosis, epidural hematoma or spinal cord compression. There is multilevel degenerative disc disease, facet osteoarthritis and uncovertebral joint hypertrophy, and neural foraminal stenosis appears most severe on the right at the C3-C4 level. * The patient was evaluated by neurology (Dr Sepulveda). DDx included Parkinsonian disorder, unclear if idiopathic PD or secondary to progressive supranuclear palsy or multiple system atrophy * Neurology recommended MRI of the head, which will be done outpatient. * Trial of carbidopa levodopa 25/100 TID with monitoring for side effects for the next 7-10 days 4. Anemia/transient hypotension * Postop the patient was noted to be transiently hypotensive requiring transfer to the intensive care unit where he was started on normal saline fluid resuscitation with appropriate response * In the setting of prior traumatic Grimm catheter placement we also started the patient on vancomycin and ceftaz with DDX of sepsis. Repeat labs showed a drop in hemoglobin from 11.4 on admission down to 7.0 for which he received 2 units PRBC transfusion * Post-obstructive diuresis partly contributed to the post-op hypotension, patient received IV fluids and BP stabilized. 5. Conjunctivitis * Purulent eye discharge more on the right eye than the left since admission. Patient reported on dry and itchy eyes as well. He was started treatment on topical antibiotics and will continue Neosporin eye drops 1 drop every four hours in each eye. Due to dry eyes patient was also administered artifical tears. Please continue artificial tears and apply it one hour after antibiotic drop. * Patient was strictly advised to only use clean napkin to wipes the eyes. 6. Occasional constipation * Patient was successfully maintained on regular bowel regimen with MiraLAX and Colace 7. Hypertension * Home dose of amlodipine 5 mg and lisinopril 2.5 mg were held throughout the hospital course with BP remaining well stabilized * We'll discharge off BP medication. Recommend restarting one Rx if warranted post discharge 8. Hypothyroidism * Continued home dose of [place] Thyroid 9. Diet: Regular diet 10. DVT prophylaxis: Lovenox 11. CODE STATUS: Full code Allergies: Coded Allergies: fenofibrate (From TRICOR) (UNKNOWN 11/29/16) levothyroxine sodium (From SYNTHROID) (HIVES 11/29/16) Disposition Summary Disposition Principal Diagnosis: Right greater trochanter fracture S/P ORIF Additional Diagnosis: Traumatic Grimm placement with prostate penetration requiring long-term Grimm placement. Blood loss anemia Postobstructive diuresis with transient hypotension Discharge Disposition: SNF Discharge Instructions General Discharge Information Code Status: Full Code Patient's Diet: Regular diet Patient's Activity: Out of bed, weightbearing as tolerated Follow-Up Instructions/Appts: 1. Please follow-up with your PCP within 1-2 weeks after discharge. Please note that we discontinued your blood pressure medication due to low blood pressure. 2. Please follow-up with your orthopedic surgeon as instructed in 3 weeks for an Xray and eveluation. You need to use the foam pillow in between the legs WHILE IN BED for 3 months until the fracture heals. this is to prevent the left leg cross over right leg while sleeping which would cause dislocation. 3. Please refrain from bending more than 90 degrees at the waist. 4. Please obtain an MRI of the brain as an outpatient and follow up with neurology within 1-2 weeks. 5. we have started you on Sinemet for gait disturbance, please follow instructions on taking this medication. 6. The Grimm catheter is to remain in place for long-term. Please follow-up with Dr. Morel within 1-2 weeks for post discharge recommendations. 7. Please continue the eye drops as intsructed and follow up with PCP regarding eye infection and need for further evaluation by an tooling engineering tech. Medications at Discharge Discharge Medications: Stop taking the following medications: Amlodipine Besylate (Amlodipine Besylate) 5 MG TABLET ORAL DAILY Qty = 90 Lisinopril (Lisinopril) 2.5 MG TABLET ORAL DAILY Qty = 90 Continue taking these medications: Thyroid,Pork ([place] Thyroid) 60 MG TABLET 1 Tablet ORAL DAILY Qty = 30 Comments: LAST TAKEN 12/05 AT 0600 Start taking the following new medications: Oxycodone HCl/Acetaminophen (Percocet 5-325 MG Tablet) 5 MG-325 MG TABLET 1 Tablet ORAL EVERY SIX HOURS NEEDED as needed for Pain Qty = 30 No Refills Comments: TAKEN AT 12/05 1450 Acetaminophen (Tylenol) 325 MG TABLET 1 Tablet ORAL EVERY SIX HOURS NEEDED as needed for Fever and Pain Scale 1 -3 (Mild) Qty = 30 No Refills Calcium Carbonate/Vitamin D3 (Os-[place] 500+D3 Caplet) 500 MG-600 TABLET 1 Tablet ORAL DAILY Qty = 30 No Refills Comments: LAST TAKEN 12/05 AT 10AM Docusate Sodium (Docusate Sodium) 100 MG CAPSULE 1 Tablet ORAL TWICE DAILY as needed for CONSTIPATION Qty = 30 No Refills Comments: LAST TAKEN 12/05 AT 0900 Polyethylene Glycol 3350 (Miralax) 17 GRAM/DOSE POWDER 1 Gram ORAL DAILY as needed for Constipation Qty = 30 No Refills Sennosides/Docusate Sodium (Senna-Time S Tablet) 8.6 MG-50 MG TABLET 1 Tablet ORAL AT BEDTIME NEEDED as needed for CONSTIPATION Qty = 30 No Refills Comments: 12/02 AT 1415 Ergocalciferol (Vitamin D2) (Vitamin D2) 50,000 UNIT CAPSULE 50,000 International Unit ORAL ONCE A WEEK Qty = 11 No Refills Comments: LAST TAKEN 12/02 AT 1406 Carbidopa/Levodopa (Sinemet 25-100 MG Tablet) 25 MG-100 MG TABLET 1 Tablet ORAL THREE TIMES DAILY Qty = 60 No Refills Neomycin/Polymyxn B/Gramicidin (Neosporin Eye Drops) 1.75 MG-10,000 UNIT-0.025 MG/ML DROPS 1 Drop Both Eyes Every 4 hours Qty = 1 No Refills Copies To: HORTENCIA HERNÁNDEZ,ISABELLA Dejesus; CONCHA HERNÁNDEZ,JANNET Roth; ADRIANA HERNÁNDEZ,RUTH Johnson; MYRA HERNÁNDEZ,MT Abreu; JOHANNY MOREL MD; REKHA HERNÁNDEZ,DARIN Attending MD Review Statement Documenting Attending: DUNCAN MAGANA MD Other Findings: Pt being dced to [facility]. Pt will f/u post discharge with orhtopedics, urology and neurology clinic Pt with gait issues- could be possibly parkinsons- started on trial of sinimet. will f/u with neurology clinic in few days to see if needs to be continued on sinimet. d/w pt the care plan before discharge.
--- NOTE | 2016-12-03 13:16 | PN- Att Addend ---
Attending MD Review Statement Attending Statement Attending MD Statement: examined this patient, discuss w/resident/PA/FARM GENERAL MANAGER, agreed w/resident/PA/FARM GENERAL MANAGER, reviewed EMR data (avail), discussed w/nursing, discussed w/ case mgmt Attending Assessment/Plan: Laboratory Tests 12/03/16 0640: Anion Gap 4 L, Estimated GFR > 60, BUN/Creatinine Ratio 15.0, Magnesium 1.9, CBC w Diff NO MAN DIFF REQ, RBC 2.88 L, MCV 93.8, MCH 31.6 H, RDW 16.7 H, MPV 9.1, Gran % 67.7, Lymphocytes % 19.5 L, Monocytes % 9.7 H, Eosinophils % 1.6, Basophils % 1.5, Absolute Granulocytes 3.2, Absolute Lymphocytes 0.9 L, Absolute Monocytes 0.5, Absolute Eosinophils 0.1, Absolute Basophils 0.1, PUBS MCHC 33.7 12/03/16 0600: Lyme Disease Antibody Pending Vital Signs Date Time Temp Pulse Resp B/P Pulse O2 O2 Flow FiO2 Ox Delivery Rate 12/03 0912 Room Air 12/03 0639 98.7 83 20 136/70 95 Room Air 12/02 2257 98.4 81 20 118/58 95 Room Air 12/02 1650 Room Air 12/02 1631 Room Air 12/02 1445 98.6 84 20 130/70 96 Room Air Patient seen and examined at bedside. Patient status post right femoral fracture repair. Patient has had falls at home with instability of his gait since summer. He states that he feels that he will fall backwards when he is walking and thus walks leaning forward. CT head and CT cervical spine results reviewed- does not explain pts gait issues. Gait issues could be deconditioning or peripheral neuropathy vs lumbar spine disease. Ordered RPR and lyme titer given pt used to hike till last summer. Physical Therapy followoing the patient. If above testing negative, will get MRI lumbar spine if pt able to tolerate the MRI.
[2016-12-03 14:09] VITALS: BP 130/62
[2016-12-03 23:58] VITALS: BP 140/64
--- NOTE | 2016-12-04 01:28 | NUR ---
PT IV SITES LEAKING WHEN FLUSHED, IV DISCONTINUED. MD GENESIS MUNSON MADE AWARE AND PER MD SPANGLER TO HAVE NO IV ACCESS.
[2016-12-04 06:30] VITALS: BP 128/70
--- NOTE | 2016-12-04 06:55 | PN- Housestaff ---
Subjective Follow-up For: 1. POD5 s/p Right hip hemiarthroplasty. Right hip fx after mechanical fall. 2. Gait disturbance and multiple falls (for >6 months) 3. Trauamtic Jones catheter insertion, complicated by bleeding, Urology on board , off CBI, urine clear. 4. Ocular infection 5. LEft ear pain Subjective: I saw and examined the patient this am, patient is complaining of difficulty hearing through the left ear and feels fullness on the at side, states that he has to tap on the ear to relieve the felling. Patient reports pain on the right hip especially when moving the hip. Also reports blurry vision, does not have his glasses with him, feels grittiness in the eye as well. Patient reports pain and burning at the tip of the penis and on the scrotum and is worried that the jones catheter that is passing below his thigh would be clogged. There is slight amount of blood around the tip of the penis but urine appear clear. Review of Systems Constitutional: Reports: weakness. Denies: chills, fever. EENTM: Reports: blurred vision, ear discharge, hearing changes. Cardiovascular: Denies: chest pain, palpitations. Respiratory: Denies: cough, short of breath, sputum production. Gastrointestinal: Reports: abdominal pain, constipation. Denies: nausea, changes in stool, vomiting. Genitourinary: Reports: pain (at the jones site). Musculoskeletal: Reports: joint pain (left hip). Denies: back pain. Skin: Reports: no symptoms. Neurological/Psychological: Reports: ataxia, weakness. Denies: confusion, headache, numbness, tremors. Hematologic/Endocrine: Reports: no symptoms. Objective Last 24 Hrs of Vital Signs/I&O Vital Signs Date Time Temp Pulse Resp B/P Pulse O2 O2 Flow FiO2 Ox Delivery Rate 12/04 0630 98.2 78 18 128/70 96 Room Air 12/03 2358 98.7 82 18 140/64 95 Room Air 12/03 1409 97.5 79 18 130/62 99 Intake & Output / 1600 03/02 0800 03/ 0000 Intake Total 400 840 240 Output Total 2950 1300 Balance 400 -2110 -1060 Intake, IV 0 Intake, Oral 400 840 240 Number 1 0 0 Bowel Movements Output, Urine 2950 1300 Patient 90.718 kg Weight Physical Exam General Appearance: Alert, Oriented X3, Cooperative, No Acute Distress Skin: No Significant Lesion HEENT: Atraumatic, EOMI Neck: Supple, No JVD Cardiovascular: Normal S1, Normal S2, No Murmurs Lungs: Clear to Auscultation, Normal Air Movement Abdomen: Soft, No Tenderness Neurological: Strength at 5/5 X4 Ext, Normal Tone, Sensation Intact, slurred speech Extremities: Normal Pulses, mild tenderness over the right hip Vascular: Normal Pulses, Pulses Symmetrical Current Medications: Current Medications Sig/Carlos Start time Last Medication Dose Route Stop Time Status Admin Acetaminophen 650 MG .STK-MED ONE 12/04 0312 DC PO 12/04 0313 Acetaminophen 650 MG Q6P PRN 11/29 2144 AC 12/04 PO 0315 Artificial Tears 2 GTT 4 TIMES/DAY 11/29 2200 AC 12/03 OPH 2101 Calcium/Vitamin D 500 MG DAILY 12/02 1716 AC 12/04 PO 1059 Docusate Sodium 100 MG BID PRN 11/29 214 AC 12/04 PO 1059 Enoxaparin Sodium 40 MG DAILY@1400 12/01 1457 AC 12/03 SC 1429 Ergocalciferol 50,000 IU Q168 12/02 1215 AC 12/02 PO 1406 Erythromycin See Dose 4 TIMES/DAY 12/02 0845 AC 12/03 Insts (1) OPH 2100 Morphine Sulfate 2 MG Q4P PRN 11/29 214 AC 12/04 IV 1100 Oxycodone/ 1 TAB Q6P PRN 11/29 2145 AC 12/04 Acetaminophen PO 1101 Phosphate 250 MG PC AND AT BEDTIME 12/03 1800 AC 12/04 PO 1059 Polyethylene Glycol 17 GM DAILY 12/02 1700 AC 12/04 PO 1059 Potassium Phosphate 15 mMol ONE ONE 12/03 1545 CAN Dextrose/Water 250 ML IV 12/03 1948 Senna 187 MG AT BEDTIME NEED.. 11/29 2145 AC 12/02 PO 1415 Thyroid 1 GR DAILY AC 11/30 0700 AC 12/04 PO 0636 Dose Instructions: (1)Erythromycin: APPLY A THIN LAYER TO AFFECTED EYE(S) Last 24 Hrs of Lab/Julio Results Last 24 Hrs of Labs/Mics: Laboratory Tests 12/04/16 1157: Phosphorus 3.6 Assessment/Plan Assessment: 76-year-old gentleman with a PMH of HTN, hypothyroidism who presents with complaints of right-sided hip pain. Patient suffered a fall 10 days ago while ambulating with a cane and has since reported progressive/persistent pain mainly localized in the right hip and occasional radiation down towards the leg. VS on admission: BP 159/74, HR 77, RR 22, SPO2 95% on RA, T 97.3 Pertinent labs: CBC 7.2, H&H 11.4/33.6, platelets 188, BUN/CR 27/1.0, glucose 113 UA: Cloudy, turbid, greater than 300 protein, positive nitrites, trace leukocyte esterase, packed RBCs, large hemoglobin Right hip x-ray: Fracture of the right femoral neck with distal fragment displaced CXR: Unremarkable Problem list: 1. Right femoral neck fracture, POD3 post right hemiarthroplasty 2. Hematuria - resolved 3. Gait instability 4. watery eyes and eye discharge 5. Occasional constipation 6. Hypertension 7. Hypothyroidism Plan: * Right femoral neck fracture: follow ortho recommendations, PT on board * BPH: continue flomax and proscar, we discontinued CBI, patient will go home with jones catheter for 1 month, urine is clear and non bloody. Will follow up with Urology outpatient. * Creatinine kinase was elevated, is trending down. * Gait disturbances for about 6 months causing frequent falls, patient denies dizziness, palpitation, visual impairment, reports not being able to lift his feet completely that has contributed to the falls, ruled out vitamin B12 and folate deficiency. Lyme titer and RPR pending * CT head and cervical spine: No acute intracranial pathology. No evidence of cerebellar infarction. Extensively degenerated cervical spine, but there is no evidence of high-grade central canal stenosis, epidural hematoma or spinal cord compression. * Neurology consulted: will do MRI of the brain tomorrow with more attention to findings related to progressive supranuclear palsy or multiple system atrophy * Ocular mucopurulent discahrge B/L: started the patient on neosporin drops and stopped erythromycin ointment (patient did not feel comfortale with the ointment ), and advised not to use the towel to wipe the eyes and use a clean tissue every time. there is significant discharge from both eyes. * Constipation: patient had bowel movement today. He has bowel regimen on board with senna and Colace, added miralax, reports no BM since * Holding amlodipine and GEOVANY inhibitor, BP in normal range right now * Hypothyroidism: Continue with armour thyroid 60mg daily * DVT prophylaxis: lovenox started, ALPS * Diet: regular * CODE STATUS: Full code Problem List: 1. Fracture of femoral neck, right 2. Urinary outflow obstruction 3. Vitamin D deficiency 4. Hematuria 5. Gait disturbance Pain Ratin Pain Location: right hip Pain Goal: Pain 4 or less Pain Plan: tylenol for mild pain, percocet for moderate pain, morphine for severe pain Tomorrow's Labs & Rationales: RPR and VDRL (work up for neirologic finding) Consulting Request: Consulting Specialty: Critical Care
--- NOTE | 2016-12-04 13:14 | PN- Att Addend ---
Attending MD Review Statement Attending Statement Attending MD Statement: examined this patient, discuss w/resident/PA/PLANT SAFETY LEADER, agreed w/resident/PA/PLANT SAFETY LEADER, reviewed EMR data (avail), discussed w/nursing Attending Assessment/Plan: Laboratory Tests 12/04/16 1157: Phosphorus 3.6 Vital Signs Date Time Temp Pulse Resp B/P Pulse O2 O2 Flow FiO2 Ox Delivery Rate 12/04 0630 98.2 78 18 128/70 96 Room Air 12/03 2358 98.7 82 18 140/64 95 Room Air 12/03 1409 97.5 79 18 130/62 99 Patient status post right femoral fracture repair. Patient has had falls at home with instability of his gait since summer. He states that he feels that he will fall backwards when he is walking and thus walks leaning forward. CT head and CT cervical spine results reviewed- does not explain pts gait issues. Gait issues could be deconditioning or peripheral neuropathy vs lumbar spine disease. Ordered RPR and lyme titer given pt used to hike till last summer. If above testing negative, will get MRI lumbar spine if pt able to tolerate the MRI. Physical Therapy followoing the patient- recommending STR. Cont jones catheter per urology, and will need f/u with urology as an outpatient. Cont jones post discharge and urology will do voiding trial when seen in clinic.
--- NOTE | 2016-12-04 13:31 | Operative Report ---
See Addendum Operative/Inv Procedure Report Surgery Date: 12/26/16 Name of Procedure: flexible cystoscopy with placement of confederated salish tip jones Pre-Operative Diagnosis: Gross hematuria with difficulty placing Jones catheter. Post-Operative Diagnosis: Jones in false passage, placement in bladder of new Jones catheter via cystoscope drained 2.5 L. Estimated Blood Loss: less than 50ml Surgeon/Loss Prevention Lead: MD DAILY aRNOLD-UROLOGY Anesthesia: general endotracheal tube Drains: 20 [place] confederated salish tip Jones catheter Complications: None Condition: Improved Operative/Procedure Note Note: The patient was taken to the operative room and placed on the OR table in supine position. Timeout was performed in order to confirm the patient's identity, procedure, anesthesia, antibiotics, as well as any other pertinent information. After adequate anesthesia, and antibiotics, the patient was then frog legged, draped and prepped in the usual surgical fashion. At the beginning of the case, Blood was noted at the patient's meatus, and no Jones catheter in place. A 20 [place]uran flexible cystoscope sheath was inserted into the urethra, and advanced into the urethra with a false passages noted to undermine the prostate into the rectal prostatic space. No significant bleeding, foreign body, or stone was noted in this area. The flexible cystoscope was then retracted to the level of the true lumen, which was followed under direct visualization through the prostatic urethra, and into the very dilated bladder. A super stiff Glidewire was inserted through the cystoscope and into the bladder. The cystoscope The bladder was removed leaving the Glidewire in place. Over the Glidewire, a 20 [place] conf[place] sal[place] tip Jones catheter was inserted without significant difficulty at this time. 10 mL of sterile water was placed into the balloon. 2.5 L of dark bloody urine drained from the bladder. The patient tolerated procedure well and was taken position for Dr Mariscal's part of the surgery. Discharge Disposition: PACU CC: JOHANNY DAILY MD
[2016-12-04 14:41] VITALS: BP 120/60
--- NOTE | 2016-12-04 14:55 | Cons- Neurology ---
General Information and HPI Consulting Request Date of Consult: 12/04/16 Requested By: CHINO HERNÁNDEZ,DUNCAN Johnson History of Present Illness: 76-year-old male with progressive gait difficulties He and his noted mild difficulties with walking approximately 2 years ago Over the past year that has progressed He has had frequent falls both backwards and forwards Rarely he was able to control the fall He has noted difficulty with stepping over small objects He has not required any assistance except for tying shoes which she states is due to her right knee pain During a recent fall he fractured his right hip but was unaware of it until about 5 days later when due to pain x-rays were obtained He is now status post surgical procedure on the right hip He is now initiated physical therapy and is pending transfer to short-term rehabilitation He has not noted leg weakness or paresthesias In-hospital he had acute urinary retention and now has an indwelling [place] Allergies/Medications Allergies: Coded Allergies: fenofibrate (From TRICOR) (UNKNOWN 11/29/16) levothyroxine sodium (From SYNTHROID) (HIVES 11/29/16) Home Med List: Amlodipine Besylate 5 MG TABLET 1 TAB PO DAILY HTN (Reported) Lisinopril 2.5 MG TABLET 1 TAB PO DAILY HTN (Reported) Thyroid,Pork ([place] Thyroid) 60 MG TABLET 1 TAB PO DAILY THYROID (Reported) Current Medications: Current Medications Sig/Carlos Start time Last Medication Dose Route Stop Time Status Admin Acetaminophen 650 MG .STK-MED ONE 12/04 0312 DC PO 12/04 0313 Acetaminophen 650 MG Q6P PRN 11/29 2144 AC 12/04 PO 0315 Artificial Tears 2 GTT 4 TIMES/DAY 11/29 2200 AC 12/03 OPH 2101 Calcium/Vitamin D 500 MG DAILY 12/02 1716 AC 12/04 PO 1059 Docusate Sodium 100 MG BID PRN 11/29 2145 AC 12/04 PO 1059 Enoxaparin Sodium 40 MG DAILY@1400 12/01 1457 12/03 SC 1429 Ergocalciferol 50,000 IU Q168 12/02 1215 AC 12/02 PO 1406 Erythromycin See Dose 4 TIMES/DAY 12/02 0845 AC 12/03 Insts (1) OPH 2100 Morphine Sulfate 2 MG Q4P PRN 11/29 2145 AC 12/04 IV 1100 Oxycodone/ 1 TAB Q4P PRN 12/04 1445 AC Acetaminophen PO Oxycodone/ 1 TAB Q6P PRN 11/29 2145 DC 12/04 Acetaminophen PO 1101 Patient Medication 1 ED .STK-MED ONE 12/04 1353 DC Teaching ED 12/04 1354 Phosphate 250 MG PC AND AT BEDTIME 12/03 1800 DC 12/04 PO 1059 Polyethylene Glycol 17 GM DAILY 12/02 1700 AC 12/04 PO 1059 Potassium Phosphate 15 mMol ONE ONE 12/03 1545 CAN Dextrose/Water 250 ML IV 12/03 194 Senna 187 MG AT BEDTIME NEED.. 11/29 2145 AC 12/02 PO 1415 Thyroid 1 GR DAILY AC 11/30 0700 AC 12/04 PO 0636 Dose Instructions: (1)Erythromycin: APPLY A THIN LAYER TO AFFECTED EYE(S) Review of Systems Review of Systems: Denies headache, difficulty swallowing, diplopia, vertigo, chest pains, abdominal upset. He has hearing loss, urinary frequency and now retention, shortness of breath on exertion There's been no significant lower extremity swelling No recent fevers Other systems reviewed negative Past History Travel History Traveled to [place] past 21 day No Medical History Blood Transfusion Hx: No Neurological: TIA EENT: NONE Cardiovascular: hypertension, hyperlipidemia Respiratory: NONE Gastrointestinal: NONE Hepatic: NONE Renal: NONE, urinary incontinence Musculoskeletal: NONE Psychiatric: obsessive compulsive disorder. 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 Ambulation: cane, walker Exam & Diagnostic Data Vital Signs and I&O Vital Signs Date Time Temp Pulse Resp B/P Pulse O2 O2 Flow FiO2 Ox Delivery Rate 12/04 1441 98.3 78 18 120/60 96 12/04 0630 98.2 78 18 128/70 96 Room Air 12/03 2358 98.7 82 18 140/64 95 Room Air Intake & Output 12/04 1600 12/04 0800 12/04 0000 Intake Total 400 840 240 Output Total 2950 1300 Balance 400 -2110 -1060 Intake, IV 0 Intake, Oral 400 840 240 Number 1 0 0 Bowel Movements Output, Urine 2950 1300 Patient 200 lb Weight Physical Exam: Family history father of lung cancer On exam he is alert and oriented , Heart sounds normal no carotid bruits distal pulses intact Language functions fund of knowledge attention span and recall intact , Pupils equal and reactive, extraocular movements full, no facial weakness no facial sensory loss, hearing impaired bilaterally, palate tongue and shoulders intact, visual guevara intact Rigidity upper and lower extremities Gross motor strength intact Sensation to light touch intact all 4 extremities Deep tendon reflexes hypoactive throughout Plantar responses upgoing bilaterally Coordinative functions upper extremities intact Gait evaluation deferred since patient did present only walking with physical therapists,, Last 48 Hours of Lab Results: Laboratory Tests 12/04 12/04 12/03 1157 1141 0640 Chemistry Sodium (137 - 145 mmol/L) 133 L Potassium (3.5 - 5.1 mmol/L) 4.0 Chloride (98 - 107 mmol/L) 101 Carbon Dioxide (22 - 30 mmol/L) 28 Anion Gap (5 - 16) 4 L BUN (9 - 20 mg/dL) 12 Creatinine (0.7 - 1.2 mg/dL) 0.8 Estimated GFR (>60 ml/min) > 60 BUN/Creatinine Ratio (7 - 25 %) 15.0 Serum Osmolality (285 - 295 MOSM/KG) 287 Phosphorus (2.5 - 4.5 mg/dL) 3.6 Magnesium (1.6 - 2.3 mg/dL) 1.9 Hematology CBC w Diff NO MAN DIFF REQ WBC (4.8 - 10.8 /CUMM) 4.8 RBC (4.70 - 6.10 /CUMM) 2.88 L Hgb (14.0 - 18.0 G/DL) 9.1 L Hct (42 - 52 %) 27.0 L MCV (80.0 - 94.0 FL) 93.8 MCH (27.0 - 31.0 PG) 31.6 H RDW (11.5 - 14.5 %) 16.7 H Plt Count (130 - 400 /CUMM) 174 MPV (7.4 - 10.4 FL) 9.1 Gran % (42.2 - 75.2 %) 67.7 Lymphocytes % (20.5 - 51.1 %) 19.5 L Monocytes % (1.7 - 9.3 %) 9.7 H Eosinophils % (0 - 5 %) 1.6 Basophils % (0.0 - 2.0 %) 1.5 Absolute Granulocytes (1.4 - 6.5 /CUMM) 3.2 Absolute Lymphocytes (1.2 - 3.4 /CUMM) 0.9 L Absolute Monocytes (0.10 - 0.60 /CUMM) 0.5 Absolute Eosinophils (0.0 - 0.7 /CUMM) 0.1 Absolute Basophils (0.0 - 0.2 /CUMM) 0.1 PUBS MCHC (33.0 - 37.0 G/DL) 33.7 Serology RPR Titer/FTA Pending 12/03 599 Serology Lyme Disease Antibody Pending Imaging/Other Studies: CT head IMPRESSION: 1. No acute intracranial pathology. 2. No evidence of cerebellar infarction. 3. Within the extensively degenerated cervical spine, there is no evidence of high-grade central canal stenosis, epidural hematoma or spinal cord compression. There is multilevel degenerative disc disease, facet osteoarthritis and uncovertebral joint hypertrophy, and neural foraminal stenosis appears most severe on the right at the C3-C4 level. 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
[2016-12-04] MEDS ORDERED: TYLENOL325 M1 PO (19:44)
[2016-12-04] MEDS ORDERED: MIRALAX119 GM PO (19:46)
--- NOTE | 2016-12-04 19:58 | Patient Discharge Instructions ---
Discharge Instructions General Discharge Information You were seen/treated for: 1. Right femoral neck fracture 2. Bloody urine 3. Gait instability 4. Anemia 5. Transient low blood pressure 6. Conjunctivitis You had these procedures: Right femoral neck fracture aarthroplasty Watch for these problems: Fevers, chills. Pain in the Right hip worse than normal. BLood from the jones catheter, urinary retention. Special Instructions: 1. Please follow-up with your PCP within 1-2 weeks after discharge. Please note that we discontinued your blood pressure medication due to low blood pressure. 2. Please follow-up with your orthopedic surgeon as instructed in 3 weeks for an Xray and eveluation. You need to use the foam pillow in between the legs WHILE IN BED for 3 months until the fracture heals. this is to prevent the left leg cross over right leg while sleeping which would cause dislocation. 3. Please refrain from bending more than 90 degrees at the waist. 4. Please obtain an MRI of the brain as an outpatient and follow up with neurology within 1-2 weeks. 5. we have started you on Sinemet for gait disturbance, please follow instructions on taking this medication. 6. The Jones catheter is to remain in place for long-term. Please follow-up with Dr. Morel within 1-2 weeks for post discharge recommendations. 7. Please continue the eye drops as intsructed and follow up with PCP regarding eye infection and need for further evaluation by an sewing machine attachment tester. Diet Continue normal diet: Yes Activity Activity Self Limited: Yes Additional ACTIVITY Info: Weight bearing in the right leg as tolerated Acute Coronary Syndrome Inclusion Criteria At DC or during hospital stay patient has or had the following: ACS DIAGNOSIS No Discharge Core Measures Meds if any: Prescribed or Continued at Discharge Meds if any: NOT Prescribed or Continued at Discharge Congestive Heart Failure Inclusion Criteria At DC or during hospital stay patient has or had the following: CHF DIAGNOSIS No Discharge Core Measures Meds if any: Prescribed or Continued at Discharge Meds if any: NOT Prescribed or Continued at Discharge Cerebrovascular accident Inclusion Criteria At DC or during hospital stay patient has or had the following: CVA/TIA Diagnosis No Discharge Core Measures Meds if any: Prescribed or Continued at Discharge Meds if any: NOT Prescribed or Continued at Discharge Venous thromboembolism Inclusion Criteria VTE Diagnosis No VTE Type NONE VTE Confirmed by (Test) NONE Discharge Core Measures - Per Current guidelines, there needs to be overlap - treatment for the first 5 days of Warfarin therapy. - If discharged on Warfarin prior to 5 days of - overlap therapy, the patient will need to be - assessed for post discharge needs including - *Post discharge parental anticoagulation - *Warfarin and/or parental anticoagulation education - *Follow up date to check INR post discharge At least 5 days overlap therapy as Inpatient No Meds if any: Prescribed or Continued at Discharge Note: Overlap Therapy is Warfarin and Anticoagulant Meds if any: NOT Prescribed or Continued at Discharge
[2016-12-04 23:12] VITALS: BP 130/60
--- NOTE | 2016-12-05 07:09 | PN- Housestaff ---
See Addendum Subjective Follow-up For: 1. POD6 s/p Right hip hemiarthroplasty. Right hip fx after mechanical fall. 2. Gait disturbance and multiple falls (for >6 months) 3. Trauamtic Jones catheter insertion, complicated by bleeding, Urology on board , off CBI, urine clear. 4. Ocular infection Subjective: I saw and examined the patient this am, patient did not sleep well last night due to rest leg syndrome as he says. And due to the hip pain he is unable to position it differently to feel more comfortable. Does not reports hip pain. He is worried that he made a mess with eating breakfast and has poured syrup on his sheet and the table. No pain at the jones site. When I told him we may do an MRI today, he expressed concern about being anxious and move a lot while obtaining the MRI. Review of Systems Constitutional: Reports: weakness. Denies: chills, fever. EENTM: Reports: ear discharge, hearing changes (intermittent). Denies: visual changes, epistaxis. Cardiovascular: Denies: chest pain, palpitations, peripheral edema. Respiratory: Denies: cough, short of breath, sputum production. Gastrointestinal: Reports: no symptoms. Genitourinary: Reports: no symptoms. Musculoskeletal: Denies: joint pain. Skin: Reports: no symptoms. Neurological/Psychological: Reports: anxiety, ataxia. Hematologic/Endocrine: Reports: no symptoms. Objective Last 24 Hrs of Vital Signs/I&O Vital Signs Date Time Temp Pulse Resp B/P Pulse O2 O2 Flow FiO2 Ox Delivery Rate 12/05 0731 98.3 74 18 128/68 97 Room Air 12/04 2312 97.9 78 20 130/60 97 Room Air 12/04 1441 98.3 78 18 120/60 96 Intake & Output 12/05 1600 12/05 0800 12/05 0000 Intake Total 300 1200 Output Total 2200 1100 Balance -1900 100 Intake, Oral 300 1200 Number 0 Bowel Movements Output, Urine 2200 1100 Physical Exam General Appearance: Alert, Oriented X3, Cooperative, No Acute Distress Skin: No Significant Lesion HEENT: Atraumatic, EOMI Neck: Supple, No JVD Cardiovascular: Regular Rate, Normal S1, Normal S2, No Murmurs Lungs: Clear to Auscultation, Normal Air Movement Abdomen: Soft, No Tenderness Neurological: Strength at 5/5 X4 Ext, Sensation Intact, Cranial Nerves 3-12 NL, slurred speech, no change compared to yesterday Extremities: No Edema, Normal Pulses Vascular: Pulses Symmetrical Current Medications: Current Medications Sig/Carlos Start time Last Medication Dose Route Stop Time Status Admin Acetaminophen 650 MG Q6P PRN 11/29 2145 AC 12/04 PO 0315 Artificial Tears 2 GTT 4 TIMES/DAY 11/29 2200 AC 12/04 OPH 2227 Calcium/Vitamin D 500 MG DAILY 12/02 1716 AC 12/04 PO 1059 Docusate Sodium 100 MG BID PRN 11/29 2145 AC 12/04 PO 1059 Enoxaparin Sodium 40 MG DAILY@1400 12/01 1457 AC 12/04 SC 1453 Ergocalciferol 50,000 IU Q168 12/02 1215 AC 12/02 PO 1406 Erythromycin See Dose 4 TIMES/DAY 12/02 0845 DC 12/03 Insts (1) OPH 2100 Morphine Sulfate 2 MG Q4P PRN 11/29 214 AC 12/04 IV 1100 Neomycin/Polymyxin/ 1 GTT Q4H 12/04 1830 AC 12/05 Gramicidin OPH 0604 Oxycodone/ 1 TAB Q4P PRN 12/04 1445 AC 12/05 Acetaminophen PO 0056 Oxycodone/ 1 TAB Q6P PRN 11/29 2145 DC 12/04 Acetaminophen PO 1101 Patient Medication 1 ED .STK-MED ONE 12/04 1353 DC Teaching ED 12/04 1354 Phosphate 250 MG PC AND AT BEDTIME 12/03 1800 DC 12/04 PO 1059 Polyethylene Glycol 17 GM DAILY 12/02 1700 AC 12/04 PO 1059 Senna 187 MG AT BEDTIME NEED.. 11/29 2145 AC 12/02 PO 1415 Thyroid 1 GR DAILY AC 11/30 0700 AC 12/05 PO 0604 Dose Instructions: (1)Erythromycin: APPLY A THIN LAYER TO AFFECTED EYE(S) Last 24 Hrs of Lab/Julio Results Last 24 Hrs of Labs/Mics: Laboratory Tests 12/04/16 1504: Urine Color YEL, Urine Clarity CLEAR, Urine pH 7.0, Ur Specific [place] 1.015, Urine Protein NEG, Urine Ketones NEG, Urine Nitrite NEG, Urine Bilirubin NEG, Urine Urobilinogen 0.2, Ur Leukocyte Esterase NEG, Ur Microscopic SEDIMENT EXAMINED, Urine RBC 15-25 H, Urine Bacteria RARE H, Urine Hemoglobin MOD H, Urine Glucose NEG 12/04/16 1504: Urine Osmolality 429, Ur Random Creatinine 43.7, Ur Random Sodium 152 H, Ur Random Potassium 14.1, Fraction Sodium Excret 2.3 H 12/04/16 1157: Anion Gap 6, Estimated GFR > 60, BUN/Creatinine Ratio 14.4, Serum Osmolality 287 , Phosphorus 3.6 12/04/16 1141: RPR Titer/FTA Pending Assessment/Plan Assessment: 76-year-old gentleman with a PMH of HTN, hypothyroidism who presents with complaints of right-sided hip pain. Patient suffered a fall 10 days ago while ambulating with a cane and has since reported progressive/persistent pain mainly localized in the right hip and occasional radiation down towards the leg. VS on admission: BP 159/74, HR 77, RR 22, SPO2 95% on RA, T 97.3 Pertinent labs: CBC 7.2, H&H 11.4/33.6, platelets 188, BUN/CR 27/1.0, glucose 113 UA: Cloudy, turbid, greater than 300 protein, positive nitrites, trace leukocyte esterase, packed RBCs, large hemoglobin Right hip x-ray: Fracture of the right femoral neck with distal fragment displaced CXR: Unremarkable Problem list: 1. Right femoral neck fracture, POD3 right hemiarthroplasty, PT active 2. Hematuria - resolved 3. Gait instability - possible 4. Bacterial Conjunctivitis: watery eyes and eye discharge 5. Occasional constipation 6. Hypertension 7. Hypothyroidism Plan: * Gait disturbances for about 6 months causing frequent falls, patient denies dizziness, palpitation, visual impairment, reports not being able to lift his feet completely that has contributed to the falls, ruled out vitamin B12 and folate deficiency. Lyme titer and RPR pending * Right femoral neck fracture: followed ortho recommendations, PT on board, patient will be discharged to [facility] with instructions to follow up with Ortho in 3 weeks and to keep the foam wedge in between the legs while in bed to help with the healing of the right femoral neck fx. * BPH: continue flomax and proscar, we discontinued CBI, patient will go home with jones catheter for 1 month, urine is clear and non bloody. Will follow up with Urology outpatient. * Creatinine kinase was elevated, is trending down. * CT head and cervical spine: No acute intracranial pathology. No evidence of cerebellar infarction. Extensively degenerated cervical spine, but there is no evidence of high-grade central canal stenosis, epidural hematoma or spinal cord compression. * Neurology consulted: will do MRI of the brain outpatient with more attention to findings related to progressive supranuclear palsy or multiple system atrophy * Conjunctivitis: Ocular mucopurulent discahrge B/L: we started the patient on neosporin drops and stopped erythromycin ointment (patient did not feel comfortale with the ointment), and advised not to use the towel to wipe the eyes and use a clean tissue every time. there is significant discharge from both eyes. * Constipation: patient had bowel movement yesterday on the bowel regimen (senna and Colace, and miralax) * Held amlodipine and GEOVANY inhibitor, BP in normal range right now * Hypothyroidism: Continue with equivalent of his home med (Armur thyroid) calculated by the pharmacy * DVT prophylaxis: lovenox started, ALPS * Diet: regular * CODE STATUS: Full code Problem List: 1. Fracture of femoral neck, right 2. Gait instability 3. Vitamin D deficiency 4. Acute blood loss anemia Pain Ratin Pain Location: right hip Pain Goal: Pain 4 or less Pain Plan: tylenol, percocet, morphine Tomorrow's Labs & Rationales: no labs Consulting Request: Consulting Specialty: Critical Care
[2016-12-05 07:31] VITALS: BP 128/68
[2016-12-05 14:00] VITALS: BP 100/60
[2016-12-05] MEDS ORDERED: SINEMET 25-1001 EACH PO (14:30)
[2016-12-05 14:33] VITALS: BP 100/60
[2016-12-05] MEDS ORDERED: NEOSPORIN EYE D10 ML OU (14:34)
[2016-12-05] MEDS ORDERED: OS-CAL 500+D31 EACH PO (16:21)
[2016-12-05] MEDS ORDERED: DOCUSATE SODIU100 M3 PO (16:22)
[2016-12-05] MEDS ORDERED: VITAMIN D250000 UNIT PO (16:23)
[2016-12-05] MEDS ORDERED: PERCOCET 5-3251 EACH PO (16:24)
[2016-12-05] MEDS ORDERED: SENNA-TIME S T1 EACH PO (16:24)
== END 2016-12-05 18:13 | DRG 469 ==
LOC: ENRESERVTM → ENRESERVDT → ERH 01:09 → CRI 03:05 → 2NA 03:05 → ERH 03:05 → ERHI 03:05 → CRI 10:05 → 2NA 10:05 → CRI 11-30 08:33 → 2NA 12-01 17:45
PROVIDERS: Dermatology; Internal Medicine; Internal Medicine Hematology & Oncology; Ophthalmology; Pediatrics; ADMIT Internal Medicine
DX: S72.001A Fracture of unspecified part of neck of right femur, initial encounter for closed fracture (principal); R57.1 Hypovolemic shock; J96.01 Acute respiratory failure with hypoxia; I95.9 Hypotension, unspecified; G20 Parkinson's disease; R31.9 Hematuria, unspecified; E87.1 Hypo-osmolality and hyponatremia; D62 Acute posthemorrhagic anemia; J98.11 Atelectasis; I10 Essential (primary) hypertension; E03.9 Hypothyroidism, unspecified; R26.89 Other abnormalities of gait and mobility; K59.00 Constipation, unspecified; E55.9 Vitamin D deficiency, unspecified; F42.8 Other obsessive-compulsive disorder; H10.9 Unspecified conjunctivitis; W18.30XA Fall on same level, unspecified, initial encounter; N36.5 Urethral false passage; Y92.009 Unspecified place in unspecified non-institutional (private) residence as the place of occurrence of the external cause; T83.028A Displacement of other urinary catheter, initial encounter; Y84.8 Other medical procedures as the cause of abnormal reaction of the patient, or of later complication, without mention of misadventure at the time of the procedure; Z91.81 History of falling; N40.1 Benign prostatic hyperplasia with lower urinary tract symptoms; R33.8 Other retention of urine; Z86.73 Personal history of transient ischemic attack (TIA), and cerebral infarction without residual deficits
CPT/HCPCS: 2NAP; 2NASP; 84133; 84300; 86618; CCU; 36415; 73502-RT; 73562-RT; 74000; 74176; 76775; 81001; 82436; 82570; 86920; 87040; 87086; 88305; 93005; 93010; 93306; 96372; 96374; 97110-GO; 97112-GO; 97116-GO; 97161-GP; 97530-GO; C1713; J0131; J0690; J0696; J0713; J1650; J1885; J3370; J7040; J7060; P9016; Q9967

== ENCOUNTER → 2017-01-27 | Day surgery (SDC) | payer OTHER ==
[~2017-01-27] MED LIST: AMLODIPINE BESYL5 M1 PO; ARMOUR THYROID60 M1 PO; DOCUSATE SODIU100 M3 PO; LISINOPRIL2.5 M1 PO; MIRALAX119 GM PO; NEOSPORIN EYE D10 ML OU; OS-CAL 500+D31 EACH PO; PERCOCET 5-3251 EACH PO; SENNA-TIME S T1 EACH PO; SINEMET 25-1001 EACH PO; TYLENOL325 M1 PO; VITAMIN D250000 UNIT PO
--- NOTE | 2017-01-29 14:11 | Operative Report ---
Operative/Inv Procedure Report Surgery Date: 01/27/17 Name of Procedure: cystoscopy: 20 fr. [place] tip jones insertion Pre-Operative Diagnosis: Urethral trauma with false passages, difficult Jones insertion. Post-Operative Diagnosis: Same Estimated Blood Loss: scant Surgeon/Pipe Roller: JOHANNY DAILY MD Anesthesia: moderate sedation Drains: 20 [place] big [place] tip Jones catheter Complications: None Operative/Procedure Note Note: The patient was taken to the operative room and placed on the OR table in supine position. Timeout was performed in order to confirm the patient's identity, procedure, anesthesia, antibiotics, as well as any other pertinent information. After adequate anesthesia, and antibiotics, the patient was then placed lithotomy stirrups draped and prepped in the usual surgical fashion, after removing the old Jones catheter was deflated. A 22 Iraqi cystoscope sheath with a 30 angle lens was inserted into the urethra and advanced into the bladder without difficulty. The area of urethral trauma/ false Passage appeared to be healing fairly well. The bladder was noted to have the findings as discussed above with severe trabeculation. The prostate were noted to be severely coapting and obstructive. The bladder was then hydrodistended 2 with the irrigation fluid at 40 cm above the symphysis pubis. No evidence of tumor, increased petechiae, nor Hunner's ulceration was noted. Both ureteral orifices had clear reflux in their orthotopic position. No terminal bleed with drainage. Bladder capacity was normal. A 0.038 guidewire was inserted through the cystoscope into the bladder without difficulty. The bladder was then drained and the cystoscope was removed leaving this guidewire in place. A 20 [place] big [place] tip catheter was then inserted by railroading it over the wire into the bladder. Once the Jones was in the bladder, 10 mL of sterile water was placed into the 10 mL balloon. The Jones was noted to drain clear fluid easily. The patient tolerated procedure well and was taken to recovery room in satisfactory condition. Findings: False passage healing well Discharge Disposition: PACU CC: JOHANNY DAILY MD
== END ==
LOC: STS 01-26 07:00
DX: N36.5 Urethral false passage (principal); N32.89 Other specified disorders of bladder; G20 Parkinson's disease; I10 Essential (primary) hypertension
CPT/HCPCS: J2250